=== PATIENT | female | born 1960 | race Caucasian/White ===

== ENCOUNTER 2020-04-18 14:57 | Inpatient (IN) ==
[2020-04-19] MEDS ORDERED: GLUCAGON 1 MG VIAL IM PRN ×2 (09:42)
[2020-04-19] MEDS ORDERED: DEXTROSE 50% 25 GM/50 ML VIAL IV PRN ×2 (09:42)
[2020-04-19] MEDS ORDERED: NICOTINE 7 MG/24 HR PATCH TRANSDERM PRN (09:47)
[2020-04-19] MEDS: methylPREDNISolone SOD SUC 40 MG/1 ML VIAL IV SCH (12:35)
[2020-04-19] MEDS: HYDROmorphone 2 MG/1 ML VIAL IV PRN ×2 (14:04→20:13)
[2020-04-19] MEDS: metroNIDAZOLE 500 MG TABLET PO SCH ×2 (14:05→20:14)
[2020-04-19 16:22] LABS: ABG HCO3 28.7 MMOL/L (20-26); ABG Oxygen Saturation 88.2 % (95-100); ABG PCO2 51.4 MM HG (35-48); ABG PH 7.393 (7.35-7.45); ABG PO2 60.5 MM HG (80-95); ABG TCO2 27.4 MMOL/L (23-27); Allen Test Positive; Pt O2 Delivery Device Room Air
[2020-04-19] MEDS: SODIUM CHLORIDE 0.9% 1,000 ML IV SCH (17:59)
[2020-04-19] MEDS: BUDESONIDE/FORMOTEROL 80-4.5 INHALER 6.9 GM INH SCH (20:14)
[2020-04-19] MEDS: POTASSIUM CHLORIDE 10 MEQ TABLET PO SCH (20:14)
[2020-04-20] MEDS: methylPREDNISolone SOD SUC 40 MG/1 ML VIAL IV SCH ×2 (00:26→13:10)
[2020-04-20] MEDS: HYDROmorphone 2 MG/1 ML VIAL IV PRN ×5 (04:07→20:04)
[2020-04-20 05:30] LABS: Hematocrit 38.9 VOL% (35.7-47.0); Hemoglobin 13.2 GM/DL (12.0-16.0); Immature Granulocytes % 0.5 %; Immature Granulocytes Absolute 0.04 #; Lymphocytes # 0.4 10*3/uL (1.4-4.0); Lymphocytes % 5.6 % (21.3-54.2); Mean Corpuscular HGB Conc 33.9 GM/DL (32-36); Mean Platelet Volume 9.9 FL (9.6-12.0); Monocytes % 1.4 % (1.7-12.7); Neutrophils % 92.5 % (38.7-73.9); Platelet Count 127 T/CUMM (130-400); Red Blood Count 4.32 MC/CUMM (3.8-5.5); White Blood Count 7.8 T/CUMM (4-12)
[2020-04-20] MEDS: LEVOTHYROXINE 25 MCG TABLET PO SCH (05:56)
[2020-04-20 05:59] LABS: Albumin 3.1 G/DL (3.4-5.0); Bilirubin,Total 0.7 MG/DL (0.2-1.0); Calcium 8.7 MG/DL (8.5-10.1); Osmolality,Calculated 273.1 MOS/KG (273-304); Total Protein 6.8 G/DL (6.4-8.3)
[2020-04-20 08:21] LABS: Lymphocytes 3 % (20-55); Metamyelocytes 1 %; Segmented Neutrophils 96 % (50-85); Total Cells Counted 100
[2020-04-20 08:22] LABS: Platelet Estimate Adequate; Polychromasia Slight
[2020-04-20 08:23] LABS: Anisocytosis 1+; Hypochromasia 1+; Ovalocytes Slight
[2020-04-20] MEDS ORDERED: CLORAZEPATE 3.75 MG TABLET PO PRN (09:13)
[2020-04-20] MEDS ORDERED: ZALEPLON 5 MG CAPSULE PO PRN (09:14)
[2020-04-20] MEDS ORDERED: NITROGLYCERIN SL 0.4 MG TABLET SL PRN (09:14)
[2020-04-20] MEDS: LEVOFLOXACIN 500 MG TABLET PO SCH (09:31)
[2020-04-20] MEDS: metroNIDAZOLE 500 MG TABLET PO SCH ×3 (09:31→20:03)
[2020-04-20] MEDS: amLODIPine 5 MG TABLET PO SCH (09:32)
[2020-04-20] MEDS: LISINOPRIL/HCTZ 20-25 MG TABLET PO SCH (09:32)
[2020-04-20] MEDS: POTASSIUM CHLORIDE 10 MEQ TABLET PO SCH ×2 (09:32→20:03)
[2020-04-20] MEDS: MONTELUKAST 10 MG TABLET PO SCH (09:32)
[2020-04-20] MEDS: BUDESONIDE/FORMOTEROL 80-4.5 INHALER 6.9 GM INH SCH ×2 (09:35→20:03)
[2020-04-20] MEDS: CHLORHEXIDINE 0.12% ORAL RINSE 60 ML BOTTLE SWISH/SPIT SCH ×2 (09:36→20:03)
[2020-04-20] MEDS: SODIUM CHLORIDE 0.9% 1,000 ML IV SCH (10:38)
[2020-04-20] MEDS: CHLORHEXIDINE 4% SOLN 118 ML BOTTLE TOP SCH ×2 (15:22→20:03)
[2020-04-21] MEDS: methylPREDNISolone SOD SUC 40 MG/1 ML VIAL IV SCH ×3 (00:20→23:09)
[2020-04-21] MEDS: HYDROmorphone 2 MG/1 ML VIAL IV PRN ×5 (02:31→23:32)
[2020-04-21] MEDS ORDERED: PAPAVERINE 60 MG/2 ML VIAL ONE (04:21)
[2020-04-21] MEDS ORDERED: VANCOMYCIN 1,000 MG VIAL ONE (04:22)
[2020-04-21] MEDS ORDERED: VANCOMYCIN 500 MG VIAL ONE (04:22)
[2020-04-21] MEDS: LEVOTHYROXINE 25 MCG TABLET PO SCH (05:32)
[2020-04-21] MEDS ORDERED: SUFentanil 250 MCG/5 ML AMP ONE (05:55)
[2020-04-21] MEDS ORDERED: MIDAZOLAM 10 MG/2 ML VIAL ONE (05:55)
[2020-04-21] MEDS ORDERED: AMINOCAPROIC ACID 5,000 MG/20 ML VIAL ONE (06:08)
[2020-04-21] MEDS ORDERED: CEFUROXIME INJ 1,500 MG in SODIUM CHLORIDE 0.9% 100 ML IV ONE (06:30)
[2020-04-21 07:50] LABS: ABG HCO3 29.9 MMOL/L (20-26); ABG Oxygen Saturation 99.9 % (95-100); ABG PCO2 64.4 MM HG (35-48); ABG PH 7.331 (7.35-7.45); ABG TCO2 30.6 MMOL/L (23-27); Glucose Heart Surgery 159 MG/DL (74-106); Hematocrit Heart Surgery 35.8 PERCENT (37-47); Hemoglobin Heart Surgery 11.6 G/DL (12.0-16.0); PCO2 Patient Temp Arterial 64.4 MMHG; PH Patient Temp Arterial 7.331; Patient Temperature 37 CELCIUS; Potassium Heart/CVR 3.5 MMOL/L (3.5-5.1); Sodium Heart/CVR 136 MMOL/L (135-145)
[2020-04-21 08:22] LABS: Apearance,Urine CLEAR (Clear); Bilirubin,Urine Negative (Negative); Blood, Urine Negative (Negative); Glucose,Urine (UA) Negative (Negative); Ketones,Urine Negative (Negative); Mucus,Urine Occasional /LPF (Occasional); Nitrite,Urine Negative (Negative); Protein,Urine Negative; RBC,Urine 3 /HPF (0-4); Squamous Epithelial Cell,Urine Occasional /HPF (0-10); Urine Color Yellow (Yellow); Urine Specific Gravity 1.015 (1.001-1.035); Urine Urobilinogen < 2.0 EU/DL (0.2-1.0); WBC,Urine 1 /HPF (0-6)
[2020-04-21] MEDS: POTASSIUM CHLORIDE 10 MEQ TABLET PO SCH (08:27)
[2020-04-21] MEDS: CHLORHEXIDINE 0.12% ORAL RINSE 60 ML BOTTLE SWISH/SPIT SCH ×2 (08:27→20:23)
[2020-04-21] MEDS: CHLORHEXIDINE 4% SOLN 118 ML BOTTLE TOP SCH (08:27)
[2020-04-21] MEDS: MONTELUKAST 10 MG TABLET PO SCH (08:27)
[2020-04-21] MEDS: metroNIDAZOLE 500 MG TABLET PO SCH (08:27)
[2020-04-21] MEDS: LEVOFLOXACIN 500 MG TABLET PO SCH (08:27)
[2020-04-21] MEDS: LISINOPRIL/HCTZ 20-25 MG TABLET PO SCH (08:27)
[2020-04-21] MEDS: amLODIPine 5 MG TABLET PO SCH (08:27)
[2020-04-21] MEDS: BUDESONIDE/FORMOTEROL 80-4.5 INHALER 6.9 GM INH SCH (08:28)
[2020-04-21] MEDS ORDERED: POTASSIUM CHLORIDE RIDER 100 ML IV ONE (08:35)
[2020-04-21] MEDS ORDERED: PHENYLEPHRINE DRIP 40 MG/250 ML PREMIX IV ONE (08:35)
[2020-04-21] MEDS ORDERED: PHENYLEPHRINE 1 MG/10 ML SYRINGE IV ONE (08:59)
[2020-04-21] MEDS ORDERED: PHENYLEPHRINE 10 MG/1 ML VIAL IV ONE (08:59)
[2020-04-21] MEDS ORDERED: HEPARIN/NACL 0.9% 2 UNITS/ML 500 ML IV ONE (08:59)
[2020-04-21] MEDS ORDERED: NITROGLYCERIN DRIP 50 MG/250 ML BOTTLE IV ONE (08:59)
[2020-04-21 09:05] LABS: Hematocrit Heart Surgery 31.9 PERCENT (37-47); Hemoglobin Heart Surgery 10.3 G/DL (12.0-16.0); PCO2 Patient Temp Venous 40.3 MM HG; PH Patient Temp Venous 7.431; PO2 Patient Temp Venous 44.3 MM HG; Potassium Heart/CVR 4.9 MMOL/L (3.5-5.1); VBG Base Excess 2.5 MEQ/L (0-4); VBG HCO3 26.4 MEQ/L (24-28); VBG Oxygen Saturation 88.9 %; VBG PCO2 46.6 MMHG (41-51); VBG PH 7.387; VBG PO2 54.3 MMHG (17-40)
[2020-04-21 09:37] LABS: Hemoglobin Heart Surgery 10.9 G/DL (12.0-16.0); PCO2 Patient Temp Venous 23.3 MM HG; PH Patient Temp Venous 7.595; Potassium Heart/CVR 4.6 MMOL/L (3.5-5.1); VBG Base Excess 1.2 MEQ/L (0-4); VBG HCO3 22.4 MEQ/L (24-28); VBG Oxygen Saturation 82.6 %; VBG PCO2 25.4 MMHG (41-51); VBG PH 7.563; VBG PO2 40.3 MMHG (17-40)
[2020-04-21 10:05] LABS: ABG Base Excess -0.2 MMOL/L (-2.5-2.5); ABG HCO3 24.3 MMOL/L (20-26); ABG PCO2 36.3 MM HG (35-48); ABG PH 7.427 (7.35-7.45); ABG TCO2 21.9 MMOL/L (23-27); Ionized Calcium Arterial 1.24 MMOL/L (1.21-1.46); Potassium Heart/CVR 3.6 MMOL/L (3.5-5.1); Sodium Heart/CVR 127 MMOL/L (135-145)
[2020-04-21 10:06] LABS: Glucose Heart Surgery 312 MG/DL (74-106); Hematocrit Heart Surgery 29.1 PERCENT (37-47); Hemoglobin Heart Surgery 9.4 G/DL (12.0-16.0); PCO2 Patient Temp Arterial 36.3 MMHG; PH Patient Temp Arterial 7.427; Patient Temperature 37 CELCIUS
[2020-04-21] MEDS ORDERED: MANNITOL 100 GM/500 ML BAG IV ONE (10:08)
[2020-04-21] MEDS ORDERED: LIDOCAINE 2% 5 ML VIAL ONE ×2 (10:08→11:52)
[2020-04-21] MEDS ORDERED: DEXTROSE 5% KCL 20 MEQ 20 MEQ/1,000 ML BAG IV ONE (10:09)
[2020-04-21] MEDS ORDERED: HEPARIN 10,000 UNIT/10 ML VIAL ONE (10:09)
[2020-04-21] MEDS ORDERED: ALBUMIN 25% 25 GM/100 ML VIAL IV ONE (10:09)
[2020-04-21] MEDS ORDERED: MAGNESIUM SULFATE 5 GM/10 ML VIAL IV ONE (10:09)
[2020-04-21] MEDS ORDERED: methylPREDNISolone SOD SUC 1,000 MG/8 ML VIAL ONE (10:09)
[2020-04-21] MEDS ORDERED: FUROSEMIDE 20 MG/2 ML VIAL ONE (10:09)
[2020-04-21] MEDS ORDERED: SODIUM BICARBONATE 50 MEQ/50 ML VIAL IV ONE (10:09)
[2020-04-21] MEDS ORDERED: ALBUMIN 5% 12.5 GM/250 ML VIAL IV ONE (10:09)
[2020-04-21] MEDS ORDERED: PROTAMINE SULFATE 50 MG/5 ML VIAL IV ONE ×3 (10:10→11:26)
[2020-04-21] MEDS ORDERED: MAGNESIUM SULF RIDER 2 GM in PREMIX 1 EACH IV PRN (10:35)
[2020-04-21] MEDS ORDERED: ACETAMINOPHEN 650 MG SUPP RECTAL PRN (10:35)
[2020-04-21] MEDS ORDERED: SODIUM CHLORIDE 0.45% 1,000 ML IV SCH ×2 (10:35)
[2020-04-21] MEDS ORDERED: INSULIN REGULAR 100 UNIT/ML IV PRN (10:35)
[2020-04-21] MEDS ORDERED: ONDANSETRON 4 MG/2 ML VIAL IV PRN (10:35)
[2020-04-21] MEDS ORDERED: POTASSIUM CHLORIDE RIDER 10 MEQ in PREMIX 1 EACH IV PRN (10:35)
[2020-04-21] MEDS ORDERED: MAGNESIUM SULF RIDER 4 GM in PREMIX 1 EACH IV PRN (10:35)
[2020-04-21] MEDS ORDERED: DEXTROSE 10% 250 ML BAG IV PRN ×2 (10:35)
[2020-04-21] MEDS ORDERED: NITROPRUSSIDE 100 MG in DEXTROSE 5% 250 ML IV PRN (10:35)
[2020-04-21] MEDS ORDERED: LACTATED RINGERS 250 ML IV PRN (10:35)
[2020-04-21] MEDS ORDERED: VECURONIUM 10 MG VIAL IV PRN ×2 (10:35)
[2020-04-21] MEDS ORDERED: INSULIN REGULAR DRIP 100 ML IV SCH (10:35)
[2020-04-21] MEDS ORDERED: MIDAZOLAM 2 MG/2 ML VIAL IV PRN (10:35)
[2020-04-21] MEDS ORDERED: PHENYLEPHRINE DRIP 40 MG/250 ML PREMIX IV PRN (10:35)
[2020-04-21] MEDS ORDERED: INSULIN REGULAR 100 UNIT/ML IV ONE (10:35)
[2020-04-21] MEDS ORDERED: CALCIUM CHLORIDE 1,000 MG/10 ML SYRINGE IV PRN (10:35)
[2020-04-21] MEDS ORDERED: CHLORHEXIDINE 4% SOLN 118 ML BOTTLE TOP PRN (10:35)
[2020-04-21] MEDS ORDERED: MORPHINE 10 MG/1 ML VIAL IV PRN (10:35)
[2020-04-21] MEDS ORDERED: MORPHINE 4 MG/1 ML VIAL IV PRN (10:35)
[2020-04-21] MEDS ORDERED: ALBUTEROL/IPRATROPIUM 3 ML NEB RESP TX PRN (11:16)
[2020-04-21 11:25] LABS: ABG Base Excess -0.4 MMOL/L (-2.5-2.5); ABG HCO3 24.1 MMOL/L (20-26); ABG PCO2 40.5 MM HG (35-48); ABG TCO2 21.9 MMOL/L (23-27); Glucose Heart Surgery 313 MG/DL (74-106); Hematocrit Heart Surgery 35.3 PERCENT (37-47); Hemoglobin Heart Surgery 11.5 G/DL (12.0-16.0); Potassium Heart/CVR 3.5 MMOL/L (3.5-5.1)
[2020-04-21] MEDS: ALBUMIN 5% 12.5 GM in PREMIX 1 EACH IV PRN ×3 (11:27→15:46)
[2020-04-21 11:29] LABS: Hematocrit 34.3 VOL% (35.7-47.0); Hemoglobin 11.3 GM/DL (12.0-16.0); Immature Granulocytes % 0.9 %; Immature Granulocytes Absolute 0.07 #; Lymphocytes # 0.4 10*3/uL (1.4-4.0); Lymphocytes % 5.3 % (21.3-54.2); Mean Corpuscular HGB Conc 32.9 GM/DL (32-36); Mean Platelet Volume 9.9 FL (9.6-12.0); Monocytes % 8.9 % (1.7-12.7); NRBC # 0.03 10*3/uL; Neutrophils % 84.9 % (38.7-73.9); Platelet Count 100 T/CUMM (130-400); Red Blood Count 3.73 MC/CUMM (3.8-5.5); Red Cell Distribution Width 14.3 % (9.3-17.3); White Blood Count 7.9 T/CUMM (4-12)
[2020-04-21] MEDS: POTASSIUM CHLORIDE RIDER 20 MEQ in PREMIX 1 EACH IV PRN ×3 (11:29→19:32)
[2020-04-21 11:48] LABS: INR 1.4; PT Patient Result 15.1 SECS (9.8-11.9); Partial Thromboplastin Time 55.9 SECS (23.9-33.8)
[2020-04-21] MEDS ORDERED: SEVOFLURANE 1 UNIT/15 MINUTE INH ONE (11:52)
[2020-04-21] MEDS ORDERED: SODIUM CHLORIDE 0.9% 100 ML IV ONE (11:52)
[2020-04-21] MEDS ORDERED: LACTATED RINGERS 1,000 ML IV ONE (11:52)
[2020-04-21] MEDS ORDERED: VECURONIUM 10 MG VIAL IV ONE (11:52)
[2020-04-21] MEDS ORDERED: ETOMIDATE 40 MG/20 ML VIAL IV ONE (11:52)
[2020-04-21] MEDS ORDERED: SODIUM CHLORIDE 0.9% 250 ML IV ONE (11:52)
[2020-04-21] MEDS ORDERED: SODIUM CHLORIDE 0.9% 1,000 ML IV ONE (11:52)
[2020-04-21] MEDS ORDERED: CALCIUM CHLORIDE 1,000 MG/10 ML VIAL IV ONE (11:52)
[2020-04-21 11:53] LABS: CKMB % 12.3 %
[2020-04-21 11:56] LABS: Troponin I 6.32 NG/ML (0.00-0.045)
[2020-04-21 11:58] LABS: Albumin 2.2 G/DL (3.4-5.0); Bilirubin,Total 0.9 MG/DL (0.2-1.0); Calcium 7.5 MG/DL (8.5-10.1); Osmolality,Calculated 281.1 MOS/KG (273-304); Total Protein 3.9 G/DL (6.4-8.3)
[2020-04-21 12:51] LABS: ABG Base Excess -1.6 MMOL/L (-2.5-2.5); ABG HCO3 23.6 MMOL/L (20-26); ABG Oxygen Saturation 98.5 % (95-100); ABG PCO2 41.6 MM HG (35-48); ABG PH 7.371 (7.35-7.45); ABG PO2 215.7 MM HG (80-95); ABG TCO2 24.8 MMOL/L (23-27); Glucose Heart Surgery 248 MG/DL (74-106); Hemoglobin Heart Surgery 10.5 G/DL (12.0-16.0); Potassium Heart/CVR 3.7 MMOL/L (3.5-5.1)
[2020-04-21] MEDS ORDERED: LACTATED RINGERS 1,000 ML IV PRN (13:32)
[2020-04-21] MEDS: ALBUTEROL/IPRATROPIUM 3 ML NEB RESP TX SCH ×2 (14:28→19:44)
[2020-04-21 15:19] LABS: ABG Base Excess 0.4 MMOL/L (-2.5-2.5); ABG HCO3 24.8 MMOL/L (20-26); ABG Oxygen Saturation 99.1 % (95-100); ABG PCO2 47.9 MM HG (35-48); ABG PH 7.348 (7.35-7.45); ABG TCO2 24.4 MMOL/L (23-27); Glucose Heart Surgery 233 MG/DL (74-106); Hematocrit Heart Surgery 28.4 PERCENT (37-47); Hemoglobin Heart Surgery 9.1 G/DL (12.0-16.0); Potassium Heart/CVR 4.1 MMOL/L (3.5-5.1)
[2020-04-21] MEDS ORDERED: HALOPERIDOL 5 MG/ML AMP IV PRN (17:17)
[2020-04-21] MEDS: MIDAZOLAM 10 MG/2 ML VIAL IV PRN (17:18)
[2020-04-21] MEDS: CEFUROXIME INJ 1,500 MG in SYRINGE 1 EACH IV SCH (18:19)
[2020-04-21 18:20] LABS: ABG HCO3 25.3 MMOL/L (20-26); ABG PCO2 50.5 MM HG (35-48); ABG PH 7.341 (7.35-7.45); ABG TCO2 25.2 MMOL/L (23-27); Glucose Heart Surgery 178 MG/DL (74-106); Hematocrit Heart Surgery 29.5 PERCENT (37-47); Hemoglobin Heart Surgery 9.5 G/DL (12.0-16.0); Potassium Heart/CVR 3.7 MMOL/L (3.5-5.1)
[2020-04-21 19:14] LABS: ABG Base Excess 1.6 MMOL/L (-2.5-2.5); ABG HCO3 25.9 MMOL/L (20-26); ABG Oxygen Saturation 98.9 % (95-100); ABG PH 7.353 (7.35-7.45); ABG TCO2 25.4 MMOL/L (23-27); Glucose Heart Surgery 164 MG/DL (74-106); Hematocrit Heart Surgery 30.6 PERCENT (37-47); Hemoglobin Heart Surgery 9.9 G/DL (12.0-16.0); Potassium Heart/CVR 3.7 MMOL/L (3.5-5.1)
[2020-04-21] MEDS ORDERED: KETOROLAC 30 MG/1 ML VIAL IV SCH (21:00)
[2020-04-21 21:04] LABS: CKMB % 12.5 %
[2020-04-21 21:06] LABS: Troponin I 3.24 NG/ML (0.00-0.045)
[2020-04-21 21:17] LABS: ABG Base Excess 1.6 MMOL/L (-2.5-2.5); ABG HCO3 25.9 MMOL/L (20-26); ABG Oxygen Saturation 99.1 % (95-100); ABG PCO2 45.4 MM HG (35-48); ABG PH 7.383 (7.35-7.45); ABG TCO2 24.7 MMOL/L (23-27); Glucose Heart Surgery 148 MG/DL (74-106); Hematocrit Heart Surgery 30.4 PERCENT (37-47); Hemoglobin Heart Surgery 9.8 G/DL (12.0-16.0); Potassium Heart/CVR 4.2 MMOL/L (3.5-5.1)
[2020-04-21 23:11] LABS: ABG Base Excess 1.5 MMOL/L (-2.5-2.5); ABG HCO3 25.8 MMOL/L (20-26); ABG PCO2 49.2 MM HG (35-48); ABG PH 7.356 (7.35-7.45); ABG TCO2 25.3 MMOL/L (23-27); Glucose Heart Surgery 136 MG/DL (74-106); Hematocrit Heart Surgery 28.9 PERCENT (37-47); Hemoglobin Heart Surgery 9.3 G/DL (12.0-16.0)
[2020-04-22 00:58] LABS: ABG Base Excess 0.4 MMOL/L (-2.5-2.5); ABG HCO3 24.8 MMOL/L (20-26); ABG Oxygen Saturation 98.9 % (95-100); ABG PCO2 51.8 MM HG (35-48); ABG PH 7.328 (7.35-7.45); ABG TCO2 24.5 MMOL/L (23-27); Glucose Heart Surgery 154 MG/DL (74-106); Hematocrit Heart Surgery 35.1 PERCENT (37-47); Hemoglobin Heart Surgery 11.4 G/DL (12.0-16.0); Potassium Heart/CVR 4.1 MMOL/L (3.5-5.1)
[2020-04-22] MEDS ORDERED: FUROSEMIDE 40 MG/4 ML VIAL IV ONE (00:59)
[2020-04-22] MEDS: ALBUMIN 5% 12.5 GM in PREMIX 1 EACH IV PRN ×2 (01:05→01:18)
[2020-04-22] MEDS: MIDAZOLAM 10 MG/2 ML VIAL IV PRN (02:18)
[2020-04-22] MEDS: KETOROLAC 30 MG/1 ML VIAL IV SCH ×4 (03:24→20:50)
[2020-04-22 03:37] LABS: ABG Base Excess 2.5 MMOL/L (-2.5-2.5); ABG HCO3 27.4 MMOL/L (20-26); ABG Oxygen Saturation 98.1 % (95-100); ABG PCO2 43.5 MM HG (35-48); ABG PH 7.417 (7.35-7.45); ABG TCO2 28.7 MMOL/L (23-27); Glucose Heart Surgery 149 MG/DL (74-106); Potassium Heart/CVR 3.4 MMOL/L (3.5-5.1)
[2020-04-22] MEDS: POTASSIUM CHLORIDE RIDER 20 MEQ in PREMIX 1 EACH IV PRN ×2 (04:05→04:36)
[2020-04-22] MEDS: HYDROmorphone 2 MG/1 ML VIAL IV PRN ×6 (04:07→22:22)
[2020-04-22 04:32] LABS: Basophils % 0.1 % (0.0-0.8); Hematocrit 30.9 VOL% (35.7-47.0); Hemoglobin 10.3 GM/DL (12.0-16.0); Immature Granulocytes % 0.3 %; Immature Granulocytes Absolute 0.04 #; Lymphocytes # 0.3 10*3/uL (1.4-4.0); Lymphocytes % 2.2 % (21.3-54.2); Mean Corpuscular HGB Conc 33.3 GM/DL (32-36); Mean Corpuscular Volume 93.4 FL (87-102); Mean Platelet Volume 11.3 FL (9.6-12.0); Monocytes % 4.6 % (1.7-12.7); Neutrophils % 92.8 % (38.7-73.9); Platelet Count 69 T/CUMM (130-400); Red Blood Count 3.31 MC/CUMM (3.8-5.5); Red Cell Distribution Width 14.5 % (9.3-17.3)
[2020-04-22 04:59] LABS: Lymphocytes 3 % (20-55); Platelet Estimate Decreased; Segmented Neutrophils 93 % (50-85); Total Cells Counted 100
[2020-04-22 05:21] LABS: CKMB % 7.5 %
[2020-04-22 05:22] LABS: Troponin I 2.81 NG/ML (0.00-0.045)
[2020-04-22 05:31] LABS: ABG Base Excess 2.3 MMOL/L (-2.5-2.5); ABG HCO3 26.5 MMOL/L (20-26); ABG PCO2 49.7 MM HG (35-48); ABG PH 7.364 (7.35-7.45); ABG TCO2 25.8 MMOL/L (23-27); Glucose Heart Surgery 155 MG/DL (74-106); Hematocrit Heart Surgery 31.5 PERCENT (37-47); Hemoglobin Heart Surgery 10.2 G/DL (12.0-16.0); Potassium Heart/CVR 4.7 MMOL/L (3.5-5.1)
[2020-04-22 06:01] LABS: Albumin 4.1 G/DL (3.4-5.0); Bilirubin,Direct 0.31 MG/DL (0.0-0.20); Bilirubin,Total 2.2 MG/DL (0.2-1.0); Calcium 8.1 MG/DL (8.5-10.1); Osmolality,Calculated 284.3 MOS/KG (273-304); Total Protein 5.4 G/DL (6.4-8.3)
[2020-04-22] MEDS: CEFUROXIME INJ 1,500 MG in SYRINGE 1 EACH IV SCH ×2 (06:15→17:36)
[2020-04-22 07:16] LABS: ABG Base Excess 2.8 MMOL/L (-2.5-2.5); ABG HCO3 26.9 MMOL/L (20-26); ABG Oxygen Saturation 98.3 % (95-100); ABG PCO2 51.2 MM HG (35-48); ABG PH 7.362 (7.35-7.45); ABG TCO2 26.5 MMOL/L (23-27); Glucose Heart Surgery 162 MG/DL (74-106); Hematocrit Heart Surgery 30.8 PERCENT (37-47); Hemoglobin Heart Surgery 9.9 G/DL (12.0-16.0); Potassium Heart/CVR 4.3 MMOL/L (3.5-5.1)
[2020-04-22] MEDS: ALBUTEROL/IPRATROPIUM 3 ML NEB RESP TX SCH ×4 (07:40→22:00)
[2020-04-22] MEDS ORDERED: LIDOCAINE 1% 20 ML VIAL MISC INJ ONE (08:30)
[2020-04-22] MEDS: CHLORHEXIDINE 0.12% ORAL RINSE 60 ML BOTTLE SWISH/SPIT SCH ×2 (08:51→22:43)
[2020-04-22] MEDS: INSULIN LISPRO 100 UNIT/ML SUBCUT SCH ×3 (12:08→22:44)
[2020-04-22] MEDS: methylPREDNISolone SOD SUC 40 MG/1 ML VIAL IV SCH ×2 (12:08→22:30)
[2020-04-22] MEDS ORDERED: MAGNESIUM SULF RIDER 4 GM in PREMIX 1 EACH IV PRN (12:11)
[2020-04-22] MEDS ORDERED: GLUCAGON 1 MG VIAL IM PRN ×2 (12:11)
[2020-04-22] MEDS ORDERED: ALUMINUM/MAGNES/SIMETH MAX STR 30 ML UDCUP PO PRN (12:11)
[2020-04-22] MEDS ORDERED: ZALEPLON 5 MG CAPSULE PO PRN (12:11)
[2020-04-22] MEDS ORDERED: ONDANSETRON 4 MG/2 ML VIAL IV PRN (12:11)
[2020-04-22] MEDS ORDERED: ACETAMINOPHEN 325 MG TABLET PO PRN (12:11)
[2020-04-22] MEDS ORDERED: MAGNESIUM HYDROXIDE SUSP 30 ML UDCUP PO PRN (12:11)
[2020-04-22] MEDS ORDERED: SODIUM CHLOR 0.45% KCL 20 MEQ 20 MEQ/1,000 ML BAG IV SCH (12:11)
[2020-04-22] MEDS ORDERED: DEXTROSE 50% 25 GM/50 ML VIAL IV PRN ×2 (12:11)
[2020-04-22] MEDS: ASPIRIN EC 81 MG TABLET PO SCH (12:52)
[2020-04-22] MEDS: PANTOPRAZOLE 40 MG TABLET PO SCH (12:53)
[2020-04-22 13:43] LABS: CKMB % 4.4 %
[2020-04-22 13:47] LABS: Troponin I 3.01 NG/ML (0.00-0.045)
[2020-04-22] MEDS ORDERED: SODIUM CHLORIDE 0.9% 100 ML IV ONE (17:20)
[2020-04-22] MEDS: ATORVASTATIN 40 MG TABLET PO SCH (21:03)
[2020-04-23] MEDS: oxyCODONE/ACETAMINOPHEN 5-325 MG TABLET PO PRN ×4 (00:55→23:21)
[2020-04-23] MEDS: INSULIN LISPRO 100 UNIT/ML SUBCUT SCH ×6 (03:06→21:09)
[2020-04-23] MEDS: KETOROLAC 30 MG/1 ML VIAL IV SCH (03:14)
[2020-04-23 04:12] LABS: Basophils % 0.1 % (0.0-0.8); Hematocrit 19.7 VOL% (35.7-47.0); Immature Granulocytes % 0.5 %; Immature Granulocytes Absolute 0.08 #; Lymphocytes # 0.4 10*3/uL (1.4-4.0); Lymphocytes % 2.7 % (21.3-54.2); Mean Corpuscular HGB Conc 32.5 GM/DL (32-36); Mean Platelet Volume 10.5 FL (9.6-12.0); Monocytes % 4.6 % (1.7-12.7); Neutrophils % 92.1 % (38.7-73.9); Platelet Count 68 T/CUMM (130-400); Red Blood Count 2.03 MC/CUMM (3.8-5.5); Red Cell Distribution Width 14.9 % (9.3-17.3)
[2020-04-23 04:18] LABS: Hemoglobin 6.4 GM/DL (12.0-16.0)
[2020-04-23] MEDS ORDERED: SODIUM CHLORIDE 0.9% 1,000 ML IV PRN (04:27)
[2020-04-23 04:39] LABS: Hypochromasia 1+; Lymphocytes 1 % (20-55); Platelet Estimate Decreased; Segmented Neutrophils 95 % (50-85); Total Cells Counted 100
[2020-04-23 04:44] LABS: Alanine Aminotransferase 45 U/L (13-56); Albumin 2.8 G/DL (3.4-5.0); Alkaline Phosphatase 30 U/L (45-117); Aspartate Amino Transferase 33 U/L (0-37); Bilirubin,Direct 0.38 MG/DL (0.0-0.20); Bilirubin,Indirect 0.6 MG/DL (0.0-1.0); Bilirubin,Total 1.3 MG/DL (0.2-1.0); Osmolality,Calculated 282.5 MOS/KG (273-304); Total Protein 4.6 G/DL (6.4-8.3)
[2020-04-23] MEDS: ALBUTEROL/IPRATROPIUM 3 ML NEB RESP TX SCH ×4 (04:51→19:12)
[2020-04-23] MEDS ORDERED: FUROSEMIDE 40 MG/4 ML VIAL IV ONE (06:00)
[2020-04-23] MEDS: PANTOPRAZOLE 40 MG TABLET PO SCH (09:10)
[2020-04-23] MEDS: POTASSIUM CHLORIDE 20 MEQ TABLET PO PRN ×2 (09:10→13:13)
[2020-04-23] MEDS: MAGNESIUM SULF RIDER 2 GM in PREMIX 1 EACH IV PRN (09:10)
[2020-04-23] MEDS: FERROUS SULFATE 325 MG TABLET PO SCH (09:10)
[2020-04-23] MEDS: HYDROmorphone 2 MG/1 ML VIAL IV PRN ×4 (09:10→21:06)
[2020-04-23] MEDS: ASPIRIN EC 81 MG TABLET PO SCH (09:10)
[2020-04-23] MEDS: DOCUSATE SODIUM 100 MG CAPSULE PO SCH (09:10)
[2020-04-23] MEDS: CHLORHEXIDINE 0.12% ORAL RINSE 60 ML BOTTLE SWISH/SPIT SCH ×2 (09:12→21:05)
[2020-04-23] MEDS: methylPREDNISolone SOD SUC 40 MG/1 ML VIAL IV SCH ×2 (11:37→21:48)
[2020-04-23 19:44] LABS: Hematocrit 27.8 VOL% (35.7-47.0); Hemoglobin 9.1 GM/DL (12.0-16.0)
[2020-04-23] MEDS: ATORVASTATIN 40 MG TABLET PO SCH (21:05)
[2020-04-24] MEDS: INSULIN LISPRO 100 UNIT/ML SUBCUT SCH ×6 (00:10→20:26)
[2020-04-24] MEDS: ALBUTEROL/IPRATROPIUM 3 ML NEB RESP TX SCH ×4 (00:18→19:29)
[2020-04-24] MEDS: HYDROmorphone 2 MG/1 ML VIAL IV PRN ×2 (02:15→06:17)
[2020-04-24 05:38] LABS: Basophils % 0.1 % (0.0-0.8); Hemoglobin 8.8 GM/DL (12.0-16.0); Immature Granulocytes % 0.5 %; Immature Granulocytes Absolute 0.07 #; Lymphocytes # 0.3 10*3/uL (1.4-4.0); Lymphocytes % 2.2 % (21.3-54.2); Mean Corpuscular HGB Conc 33.8 GM/DL (32-36); Mean Corpuscular Volume 91.5 FL (87-102); Mean Platelet Volume 10.7 FL (9.6-12.0); Monocytes % 3.5 % (1.7-12.7); Neutrophils % 93.7 % (38.7-73.9); Red Blood Count 2.84 MC/CUMM (3.8-5.5); Red Cell Distribution Width 14.5 % (9.3-17.3); White Blood Count 12.8 T/CUMM (4-12)
[2020-04-24 05:48] LABS: Platelet Count 76 T/CUMM (130-400)
[2020-04-24 06:19] LABS: Band Neutrophils 2 % (0-10); Hypochromasia 1+; Lymphocytes 3 % (20-55); Microcytosis Slight; Platelet Estimate Decreased; Segmented Neutrophils 91 % (50-85); Total Cells Counted 100
[2020-04-24 06:27] LABS: Calcium 8.1 MG/DL (8.5-10.1)
[2020-04-24 06:28] LABS: Albumin 3.2 G/DL (3.4-5.0); Osmolality,Calculated 271.1 MOS/KG (273-304)
[2020-04-24 06:30] LABS: Bilirubin,Direct 0.29 MG/DL (0.0-0.20)
[2020-04-24 06:33] LABS: Bilirubin,Total 1.2 MG/DL (0.2-1.0); Total Protein 5.8 G/DL (6.4-8.3)
[2020-04-24 07:18] LABS: Alanine Aminotransferase 56 U/L (13-56); Albumin 3.1 G/DL (3.4-5.0); Alkaline Phosphatase 52 U/L (45-117); Aspartate Amino Transferase 43 U/L (0-37); Bilirubin,Indirect 0.9 MG/DL (0.0-1.0); Total Protein 5.8 G/DL (6.4-8.3)
[2020-04-24] MEDS: predniSONE 10 MG TABLET PO SCH ×2 (08:17→20:23)
[2020-04-24] MEDS: CHLORHEXIDINE 0.12% ORAL RINSE 60 ML BOTTLE SWISH/SPIT SCH ×2 (08:17→20:23)
[2020-04-24] MEDS: DOCUSATE SODIUM 100 MG CAPSULE PO SCH (08:17)
[2020-04-24] MEDS: POTASSIUM CHLORIDE 20 MEQ TABLET PO PRN ×2 (08:17→10:27)
[2020-04-24] MEDS: ASPIRIN EC 81 MG TABLET PO SCH (08:17)
[2020-04-24] MEDS: PANTOPRAZOLE 40 MG TABLET PO SCH (08:17)
[2020-04-24] MEDS: FERROUS SULFATE 325 MG TABLET PO SCH (08:17)
[2020-04-24] MEDS ORDERED: HYDROmorphone 2 MG/1 ML VIAL IV ONE (09:09)
[2020-04-24] MEDS: lisinopriL 5 MG TABLET PO SCH (10:26)
[2020-04-24] MEDS: carvediloL 3.125 MG TABLET PO SCH ×2 (10:26→20:22)
[2020-04-24] MEDS: LEVOTHYROXINE 25 MCG TABLET PO SCH (10:26)
[2020-04-24] MEDS: HYDROmorphone 2 MG TABLET PO PRN ×3 (13:24→23:41)
[2020-04-24] MEDS: oxyCODONE/ACETAMINOPHEN 5-325 MG TABLET PO PRN (20:21)
[2020-04-24] MEDS: BUDESONIDE/FORMOTEROL 80-4.5 INHALER 6.9 GM INH SCH (20:22)
[2020-04-24] MEDS: ATORVASTATIN 40 MG TABLET PO SCH (20:23)
[2020-04-25] MEDS: ALBUTEROL/IPRATROPIUM 3 ML NEB RESP TX SCH ×4 (00:28→19:18)
[2020-04-25] MEDS: oxyCODONE/ACETAMINOPHEN 5-325 MG TABLET PO PRN ×3 (02:43→18:10)
[2020-04-25] MEDS: LEVOTHYROXINE 25 MCG TABLET PO SCH (05:45)
[2020-04-25] MEDS: HYDROmorphone 2 MG TABLET PO PRN ×3 (05:45→21:40)
[2020-04-25 06:12] LABS: Basophils % 0.1 % (0.0-0.8); Hematocrit 20.3 VOL% (35.7-47.0); Hemoglobin 6.6 GM/DL (12.0-16.0); Immature Granulocytes % 0.5 %; Immature Granulocytes Absolute 0.05 #; Lymphocytes # 0.9 10*3/uL (1.4-4.0); Lymphocytes % 9.2 % (21.3-54.2); Mean Corpuscular HGB Conc 32.5 GM/DL (32-36); Mean Corpuscular Volume 92.3 FL (87-102); Mean Platelet Volume 10.1 FL (9.6-12.0); Monocytes % 7.5 % (1.7-12.7); Neutrophils % 82.7 % (38.7-73.9); Red Cell Distribution Width 14.2 % (9.3-17.3)
[2020-04-25 06:20] LABS: Platelet Count 130 T/CUMM (130-400)
[2020-04-25 06:28] LABS: Calcium 8.1 MG/DL (8.5-10.1); Osmolality,Calculated 268.2 MOS/KG (273-304)
[2020-04-25] MEDS ORDERED: NICOTINE 14 MG/24 HR PATCH TRANSDERM PRN (07:20)
[2020-04-25] MEDS ORDERED: FUROSEMIDE 40 MG/4 ML VIAL IV ONE (07:20)
[2020-04-25] MEDS ORDERED: SODIUM CHLORIDE 0.9% 1,000 ML IV PRN (07:22)
[2020-04-25 07:23] LABS: Anisocytosis Slight; Hypochromasia 1+; Platelet Estimate Adequate; Polychromasia Slight; Schistocytes Slight
[2020-04-25] MEDS: INSULIN LISPRO 100 UNIT/ML SUBCUT SCH ×4 (08:39→21:41)
[2020-04-25] MEDS: DOCUSATE SODIUM 100 MG CAPSULE PO SCH (09:41)
[2020-04-25] MEDS: lisinopriL 5 MG TABLET PO SCH (09:41)
[2020-04-25] MEDS: FERROUS SULFATE 325 MG TABLET PO SCH (09:41)
[2020-04-25] MEDS: carvediloL 3.125 MG TABLET PO SCH ×2 (09:41→21:40)
[2020-04-25] MEDS: MONTELUKAST 10 MG TABLET PO SCH (09:41)
[2020-04-25] MEDS: PANTOPRAZOLE 40 MG TABLET PO SCH (09:41)
[2020-04-25] MEDS: CHLORHEXIDINE 0.12% ORAL RINSE 60 ML BOTTLE SWISH/SPIT SCH ×2 (09:42→21:42)
[2020-04-25] MEDS: predniSONE 10 MG TABLET PO SCH ×2 (09:42→21:39)
[2020-04-25] MEDS: ASPIRIN EC 81 MG TABLET PO SCH (09:42)
[2020-04-25] MEDS: POLYETHYLENE GLYCOL POWDER 17 GM PACK PO SCH (09:42)
[2020-04-25] MEDS: POTASSIUM CHLORIDE 20 MEQ TABLET PO PRN (09:44)
[2020-04-25] MEDS: MAGNESIUM SULF RIDER 2 GM in PREMIX 1 EACH IV PRN (09:47)
[2020-04-25] MEDS: BUDESONIDE/FORMOTEROL 80-4.5 INHALER 6.9 GM INH SCH ×2 (09:53→21:42)
[2020-04-25] MEDS: ATORVASTATIN 40 MG TABLET PO SCH (21:39)
[2020-04-26] MEDS: ALBUTEROL/IPRATROPIUM 3 ML NEB RESP TX SCH ×4 (00:35→20:05)
[2020-04-26] MEDS: oxyCODONE/ACETAMINOPHEN 5-325 MG TABLET PO PRN ×3 (01:31→14:30)
[2020-04-26] MEDS: LEVOTHYROXINE 25 MCG TABLET PO SCH (06:33)
[2020-04-26 06:37] LABS: Basophils % 0.1 % (0.0-0.8); Hematocrit 30.7 VOL% (35.7-47.0); Hemoglobin 10.4 GM/DL (12.0-16.0); Immature Granulocytes % 0.3 %; Immature Granulocytes Absolute 0.03 #; Lymphocytes # 0.7 10*3/uL (1.4-4.0); Lymphocytes % 7.4 % (21.3-54.2); Mean Corpuscular HGB Conc 33.9 GM/DL (32-36); Mean Corpuscular Volume 91.1 FL (87-102); Mean Platelet Volume 10.5 FL (9.6-12.0); Monocytes % 7.4 % (1.7-12.7); Neutrophils % 84.8 % (38.7-73.9); Platelet Count 143 T/CUMM (130-400); Red Blood Count 3.37 MC/CUMM (3.8-5.5); Red Cell Distribution Width 14.3 % (9.3-17.3)
[2020-04-26 07:15] LABS: Alanine Aminotransferase 103 U/L (13-56); Albumin 3.2 G/DL (3.4-5.0); Alkaline Phosphatase 51 U/L (45-117); Aspartate Amino Transferase 61 U/L (0-37); Bilirubin,Indirect 2.6 MG/DL (0.0-1.0); Blood Urea Nitrogen 14 MG/DL (7-18); Calcium 8.5 MG/DL (8.5-10.1); Estimated Glom Filtration Rate 79 ML/MIN; Glucose 106 MG/DL (74-106); Osmolality,Calculated 266.4 MOS/KG (273-304); Total Protein 5.8 G/DL (6.4-8.3); Troponin I 0.699 NG/ML (0.00-0.045)
[2020-04-26] MEDS: MONTELUKAST 10 MG TABLET PO SCH (09:49)
[2020-04-26] MEDS: POTASSIUM CHLORIDE 20 MEQ TABLET PO PRN (09:49)
[2020-04-26] MEDS: ASPIRIN EC 81 MG TABLET PO SCH (09:49)
[2020-04-26] MEDS: carvediloL 3.125 MG TABLET PO SCH ×2 (09:49→20:16)
[2020-04-26] MEDS: DOCUSATE SODIUM 100 MG CAPSULE PO SCH (09:49)
[2020-04-26] MEDS: FERROUS SULFATE 325 MG TABLET PO SCH (09:49)
[2020-04-26] MEDS: predniSONE 10 MG TABLET PO SCH ×2 (09:49→20:16)
[2020-04-26] MEDS: CHLORHEXIDINE 0.12% ORAL RINSE 60 ML BOTTLE SWISH/SPIT SCH ×2 (09:50→20:17)
[2020-04-26] MEDS: BUDESONIDE/FORMOTEROL 80-4.5 INHALER 6.9 GM INH SCH ×2 (09:50→20:18)
[2020-04-26] MEDS: lisinopriL 5 MG TABLET PO SCH (09:50)
[2020-04-26] MEDS: PANTOPRAZOLE 40 MG TABLET PO SCH (09:50)
[2020-04-26] MEDS: POLYETHYLENE GLYCOL POWDER 17 GM PACK PO SCH (09:50)
[2020-04-26] MEDS: INSULIN LISPRO 100 UNIT/ML SUBCUT SCH ×4 (09:51→20:19)
[2020-04-26] MEDS: HYDROmorphone 2 MG TABLET PO PRN (10:03)
[2020-04-26] MEDS: GABAPENTIN 300 MG CAPSULE PO SCH ×2 (14:30→20:16)
[2020-04-26] MEDS ORDERED: LACTULOSE 20 GM/30 ML UDCUP PO PRN (15:31)
[2020-04-26] MEDS: ATORVASTATIN 40 MG TABLET PO SCH (20:16)
[2020-04-27] MEDS: oxyCODONE/ACETAMINOPHEN 5-325 MG TABLET PO PRN ×4 (00:03→22:59)
[2020-04-27] MEDS: ALBUTEROL/IPRATROPIUM 3 ML NEB RESP TX SCH ×4 (01:06→18:43)
[2020-04-27 05:58] LABS: Basophils % 0.1 % (0.0-0.8); Eosinophils % 0.1 % (0.00-10.9); Hematocrit 30.2 VOL% (35.7-47.0); Hemoglobin 10.2 GM/DL (12.0-16.0); Immature Granulocytes % 0.4 %; Immature Granulocytes Absolute 0.04 #; Lymphocytes # 0.8 10*3/uL (1.4-4.0); Mean Corpuscular HGB Conc 33.8 GM/DL (32-36); Mean Corpuscular Volume 92.1 FL (87-102); Mean Platelet Volume 9.8 FL (9.6-12.0); Monocytes % 8.9 % (1.7-12.7); Neutrophils % 82.5 % (38.7-73.9); Platelet Count 174 T/CUMM (130-400); Red Blood Count 3.28 MC/CUMM (3.8-5.5); Red Cell Distribution Width 14.5 % (9.3-17.3); White Blood Count 9.9 T/CUMM (4-12)
[2020-04-27 06:48] LABS: Calcium 8.4 MG/DL (8.5-10.1); Osmolality,Calculated 269.1 MOS/KG (273-304)
[2020-04-27] MEDS: LEVOTHYROXINE 25 MCG TABLET PO SCH (06:49)
[2020-04-27 06:52] LABS: Alanine Aminotransferase 102 U/L (13-56); Albumin 3.1 G/DL (3.4-5.0); Alkaline Phosphatase 62 U/L (45-117); Aspartate Amino Transferase 38 U/L (0-37); Bilirubin,Indirect 1.8 MG/DL (0.0-1.0); Blood Urea Nitrogen 12 MG/DL (7-18); Calcium 8.6 MG/DL (8.5-10.1); Estimated Glom Filtration Rate 79 ML/MIN; Glucose 103 MG/DL (74-106); Osmolality,Calculated 267.2 MOS/KG (273-304); Total Protein 5.7 G/DL (6.4-8.3)
[2020-04-27 06:55] LABS: Troponin I 0.376 NG/ML (0.00-0.045)
[2020-04-27] MEDS: INSULIN LISPRO 100 UNIT/ML SUBCUT SCH ×4 (08:11→21:43)
[2020-04-27] MEDS: carvediloL 3.125 MG TABLET PO SCH ×2 (09:51→21:42)
[2020-04-27] MEDS: lisinopriL 5 MG TABLET PO SCH (09:51)
[2020-04-27] MEDS: DOCUSATE SODIUM 100 MG CAPSULE PO SCH (09:51)
[2020-04-27] MEDS: ASPIRIN EC 81 MG TABLET PO SCH (09:51)
[2020-04-27] MEDS: CHLORHEXIDINE 0.12% ORAL RINSE 60 ML BOTTLE SWISH/SPIT SCH ×2 (09:52→21:43)
[2020-04-27] MEDS: BUDESONIDE/FORMOTEROL 80-4.5 INHALER 6.9 GM INH SCH ×2 (09:52→21:43)
[2020-04-27] MEDS: MONTELUKAST 10 MG TABLET PO SCH (09:52)
[2020-04-27] MEDS: POLYETHYLENE GLYCOL POWDER 17 GM PACK PO SCH (09:52)
[2020-04-27] MEDS: predniSONE 10 MG TABLET PO SCH ×2 (09:52→21:42)
[2020-04-27] MEDS: FERROUS SULFATE 325 MG TABLET PO SCH (09:52)
[2020-04-27] MEDS: GABAPENTIN 300 MG CAPSULE PO SCH ×3 (09:52→21:42)
[2020-04-27] MEDS: PANTOPRAZOLE 40 MG TABLET PO SCH (09:52)
[2020-04-27] MEDS: hydroCHLOROthiazide 12.5 MG CAPSULE PO SCH (09:54)
[2020-04-27] MEDS: amLODIPine 5 MG TABLET PO SCH (09:54)
[2020-04-27] MEDS: HYDROmorphone 2 MG TABLET PO PRN (11:56)
[2020-04-27] MEDS: ATORVASTATIN 40 MG TABLET PO SCH (21:43)
[2020-04-28] MEDS: HYDROmorphone 2 MG TABLET PO PRN ×2 (00:20→09:26)
[2020-04-28] MEDS: ALBUTEROL/IPRATROPIUM 3 ML NEB RESP TX SCH ×2 (01:49→09:30)
[2020-04-28 05:26] LABS: Basophils % 0.1 % (0.0-0.8); Eosinophils % 0.1 % (0.00-10.9); Hematocrit 29.5 VOL% (35.7-47.0); Hemoglobin 9.9 GM/DL (12.0-16.0); Immature Granulocytes % 0.6 %; Immature Granulocytes Absolute 0.07 #; Lymphocytes # 0.6 10*3/uL (1.4-4.0); Lymphocytes % 4.5 % (21.3-54.2); Mean Corpuscular HGB Conc 33.6 GM/DL (32-36); Mean Corpuscular Volume 94.2 FL (87-102); Mean Platelet Volume 9.9 FL (9.6-12.0); Monocytes % 4.5 % (1.7-12.7); Neutrophils % 90.2 % (38.7-73.9); Platelet Count 204 T/CUMM (130-400); Red Blood Count 3.13 MC/CUMM (3.8-5.5); Red Cell Distribution Width 14.3 % (9.3-17.3); White Blood Count 12.5 T/CUMM (4-12)
[2020-04-28 05:42] LABS: Albumin 3.1 G/DL (3.4-5.0); Bilirubin,Total 1.9 MG/DL (0.2-1.0); Calcium 8.7 MG/DL (8.5-10.1); Osmolality,Calculated 270.2 MOS/KG (273-304); Total Protein 5.9 G/DL (6.4-8.3)
[2020-04-28] MEDS: oxyCODONE/ACETAMINOPHEN 5-325 MG TABLET PO PRN (05:48)
[2020-04-28] MEDS: LEVOTHYROXINE 25 MCG TABLET PO SCH (05:49)
[2020-04-28] MEDS: INSULIN LISPRO 100 UNIT/ML SUBCUT SCH (08:04)
[2020-04-28 08:17] LABS: Anisocytosis 1+; Band Neutrophils 2 % (0-10); Lymphocytes 4 % (20-55); Macrocytosis 1+; Platelet Estimate Normal; Segmented Neutrophils 90 % (50-85); Total Cells Counted 100
[2020-04-28 08:23] VITALS: BP 154/96
[2020-04-28] MEDS: GABAPENTIN 300 MG CAPSULE PO SCH (09:26)
[2020-04-28] MEDS: carvediloL 3.125 MG TABLET PO SCH (09:26)
[2020-04-28] MEDS: hydroCHLOROthiazide 12.5 MG CAPSULE PO SCH (09:26)
[2020-04-28] MEDS: predniSONE 10 MG TABLET PO SCH (09:27)
[2020-04-28] MEDS: lisinopriL 5 MG TABLET PO SCH (09:27)
[2020-04-28] MEDS: amLODIPine 5 MG TABLET PO SCH (09:27)
[2020-04-28] MEDS: POLYETHYLENE GLYCOL POWDER 17 GM PACK PO SCH (09:27)
[2020-04-28] MEDS: MONTELUKAST 10 MG TABLET PO SCH (09:27)
[2020-04-28] MEDS: PANTOPRAZOLE 40 MG TABLET PO SCH (09:27)
[2020-04-28] MEDS: DOCUSATE SODIUM 100 MG CAPSULE PO SCH (09:27)
[2020-04-28] MEDS: ASPIRIN EC 81 MG TABLET PO SCH (09:27)
[2020-04-28] MEDS: FERROUS SULFATE 325 MG TABLET PO SCH (09:27)
[2020-04-28] MEDS: CHLORHEXIDINE 0.12% ORAL RINSE 60 ML BOTTLE SWISH/SPIT SCH (09:27)
[2020-04-28] MEDS: BUDESONIDE/FORMOTEROL 80-4.5 INHALER 6.9 GM INH SCH (09:50)
== END 2020-04-28 11:55 | disposition home health service (06) | DRG 165 ==
LOC: N.TELEN 04-19 10:46 → N.CVR 04-21 10:28 → N.TELES 04-22 12:04

== ENCOUNTER 2020-05-09 14:50 | Inpatient (IN) ==
[2020-05-09] MEDS ORDERED: HYDROmorphone 2 MG/1 ML VIAL ONE (15:43)
[2020-05-09] MEDS ORDERED: GLUCAGON 1 MG VIAL IM PRN ×2 (15:44)
[2020-05-09] MEDS ORDERED: DEXTROSE 50% 25 GM/50 ML VIAL IV PRN ×2 (15:44)
[2020-05-09] MEDS ORDERED: HYDROmorphone 2 MG/1 ML VIAL IV ONE (15:45)
[2020-05-09] MEDS ORDERED: HYDROmorphone 2 MG TABLET PO PRN (15:50)
[2020-05-09] MEDS ORDERED: NITROGLYCERIN SL 0.4 MG TABLET SL PRN (15:50)
[2020-05-09 16:22] LABS: Basophils # 0.1 10*3/uL (0.0-0.2); Basophils % 0.8 % (0.0-0.8); Eosinophils # 0.1 10*3/uL (0.0-0.87); Eosinophils % 1.7 % (0.00-10.9); Hematocrit 40.5 VOL% (35.7-47.0); Hemoglobin 12.7 GM/DL (12.0-16.0); Immature Granulocytes % 0.4 %; Immature Granulocytes Absolute 0.03 #; Lymphocytes # 0.9 10*3/uL (1.4-4.0); Lymphocytes % 11.7 % (21.3-54.2); Mean Corpuscular HGB Conc 31.4 GM/DL (32-36); Mean Corpuscular Volume 103.1 FL (87-102); Mean Platelet Volume 8.6 FL (9.6-12.0); Monocytes % 7.5 % (1.7-12.7); Neutrophils % 77.9 % (38.7-73.9); Platelet Count 158 T/CUMM (130-400); Red Blood Count 3.93 MC/CUMM (3.8-5.5); White Blood Count 7.5 T/CUMM (4-12)
[2020-05-09 16:35] LABS: PT Patient Result 10.7 SECS (9.8-11.9); Partial Thromboplastin Time 27.9 SECS (23.9-33.8)
[2020-05-09 16:42] LABS: Albumin 3.3 G/DL (3.4-5.0); Bilirubin,Total 0.9 MG/DL (0.2-1.0); Calcium 8.7 MG/DL (8.5-10.1); Osmolality,Calculated 276.7 MOS/KG (273-304); Total Protein 6.2 G/DL (6.4-8.3)
[2020-05-09] MEDS: INSULIN REGULAR 100 UNIT/ML SUBCUT SCH ×2 (17:27→20:12)
[2020-05-09] MEDS ORDERED: NALOXONE 0.4 MG/ML VIAL IV ONE (17:29)
[2020-05-09] MEDS ORDERED: NALOXONE 0.4 MG/ML VIAL ONE (17:31)
[2020-05-09 18:53] LABS: Basophils # 0.1 10*3/uL (0.0-0.2); Basophils % 0.6 % (0.0-0.8); Eosinophils # 0.1 10*3/uL (0.0-0.87); Eosinophils % 1.1 % (0.00-10.9); Hematocrit 40.6 VOL% (35.7-47.0); Hemoglobin 12.5 GM/DL (12.0-16.0); Immature Granulocytes % 0.6 %; Immature Granulocytes Absolute 0.06 #; Lymphocytes # 0.5 10*3/uL (1.4-4.0); Mean Corpuscular HGB Conc 30.8 GM/DL (32-36); Mean Corpuscular Volume 104.9 FL (87-102); Mean Platelet Volume 8.9 FL (9.6-12.0); Monocytes % 5.3 % (1.7-12.7); Neutrophils % 87.4 % (38.7-73.9); Platelet Count 148 T/CUMM (130-400); Red Blood Count 3.87 MC/CUMM (3.8-5.5); Red Cell Distribution Width 16.6 % (9.3-17.3); White Blood Count 10.5 T/CUMM (4-12)
[2020-05-09] MEDS: SODIUM CHLORIDE 0.9% 1,000 ML IV SCH (19:10)
[2020-05-09] MEDS ORDERED: ZALEPLON 5 MG CAPSULE PO PRN (21:08)
[2020-05-09] MEDS: ATORVASTATIN 40 MG TABLET PO SCH (22:07)
[2020-05-09] MEDS: carvediloL 3.125 MG TABLET PO SCH (22:07)
[2020-05-09] MEDS: BUDESONIDE/FORMOTEROL 80-4.5 INHALER 6.9 GM INH SCH (22:07)
[2020-05-10 04:04] LABS: Basophils % 0.7 % (0.0-0.8); Eosinophils # 0.1 10*3/uL (0.0-0.87); Eosinophils % 1.8 % (0.00-10.9); Hematocrit 38.4 VOL% (35.7-47.0); Hemoglobin 11.7 GM/DL (12.0-16.0); Immature Granulocytes % 0.3 %; Immature Granulocytes Absolute 0.02 #; Lymphocytes # 0.8 10*3/uL (1.4-4.0); Lymphocytes % 12.7 % (21.3-54.2); Mean Corpuscular HGB Conc 30.5 GM/DL (32-36); Mean Corpuscular Volume 105.8 FL (87-102); Mean Platelet Volume 8.7 FL (9.6-12.0); Neutrophils % 75.5 % (38.7-73.9); Platelet Count 158 T/CUMM (130-400); Red Blood Count 3.63 MC/CUMM (3.8-5.5); Red Cell Distribution Width 16.9 % (9.3-17.3); White Blood Count 6.1 T/CUMM (4-12)
[2020-05-10 04:20] LABS: Albumin 2.7 G/DL (3.4-5.0); Bilirubin,Total 0.8 MG/DL (0.2-1.0); Calcium 8.5 MG/DL (8.5-10.1); Osmolality,Calculated 282.1 MOS/KG (273-304); Total Protein 5.7 G/DL (6.4-8.3)
[2020-05-10 04:50] LABS: Hypochromasia 1+; Macrocytosis 1+
[2020-05-10 04:51] LABS: Anisocytosis 1+; Platelet Estimate Adequate
[2020-05-10] MEDS: LEVOTHYROXINE 25 MCG TABLET PO SCH (06:54)
[2020-05-10] MEDS: INSULIN REGULAR 100 UNIT/ML SUBCUT SCH ×4 (07:27→20:57)
[2020-05-10] MEDS: FERROUS SULFATE 325 MG TABLET PO SCH ×2 (07:35→08:19)
[2020-05-10] MEDS: ASPIRIN EC 81 MG TABLET PO SCH ×2 (07:35→08:18)
[2020-05-10] MEDS: amLODIPine 5 MG TABLET PO SCH ×2 (07:35→08:19)
[2020-05-10] MEDS: LEVOFLOXACIN 500 MG TABLET PO SCH ×2 (07:35→08:19)
[2020-05-10] MEDS: carvediloL 3.125 MG TABLET PO SCH ×3 (07:35→20:56)
[2020-05-10] MEDS: hydroCHLOROthiazide 12.5 MG CAPSULE PO SCH ×2 (07:35→08:19)
[2020-05-10] MEDS: BUDESONIDE/FORMOTEROL 80-4.5 INHALER 6.9 GM INH SCH ×3 (07:36→20:56)
[2020-05-10] MEDS: lisinopriL 5 MG TABLET PO SCH ×2 (07:36→08:19)
[2020-05-10] MEDS: DOCUSATE SODIUM 100 MG CAPSULE PO SCH (08:18)
[2020-05-10] MEDS: HYDROmorphone 2 MG TABLET PO PRN ×3 (11:28→20:06)
[2020-05-10] MEDS: SODIUM CHLORIDE 0.9% 1,000 ML IV SCH (16:28)
[2020-05-10] MEDS: ATORVASTATIN 40 MG TABLET PO SCH (20:55)
[2020-05-11] MEDS: HYDROmorphone 2 MG TABLET PO PRN ×6 (00:21→22:16)
[2020-05-11] MEDS: LEVOTHYROXINE 25 MCG TABLET PO SCH (05:53)
[2020-05-11] MEDS: INSULIN REGULAR 100 UNIT/ML SUBCUT SCH ×5 (08:08→22:15)
[2020-05-11] MEDS: lisinopriL 5 MG TABLET PO SCH (08:52)
[2020-05-11] MEDS: FERROUS SULFATE 325 MG TABLET PO SCH (08:52)
[2020-05-11] MEDS: hydroCHLOROthiazide 12.5 MG CAPSULE PO SCH (08:52)
[2020-05-11] MEDS: LEVOFLOXACIN 500 MG TABLET PO SCH (08:52)
[2020-05-11] MEDS: ASPIRIN EC 81 MG TABLET PO SCH (08:53)
[2020-05-11] MEDS: DOCUSATE SODIUM 100 MG CAPSULE PO SCH (08:53)
[2020-05-11] MEDS: amLODIPine 5 MG TABLET PO SCH (08:53)
[2020-05-11] MEDS: carvediloL 3.125 MG TABLET PO SCH ×2 (08:53→22:15)
[2020-05-11] MEDS: BUDESONIDE/FORMOTEROL 80-4.5 INHALER 6.9 GM INH SCH ×2 (08:58→22:16)
[2020-05-11] MEDS: ATORVASTATIN 40 MG TABLET PO SCH (22:16)
[2020-05-12] MEDS: HYDROmorphone 2 MG TABLET PO PRN ×6 (02:05→22:33)
[2020-05-12] MEDS: LEVOTHYROXINE 25 MCG TABLET PO SCH (05:56)
[2020-05-12 06:31] LABS: Calcium 8.9 MG/DL (8.5-10.1); Osmolality,Calculated 269.1 MOS/KG (273-304)
[2020-05-12 06:37] LABS: Basophils % 0.7 % (0.0-0.8); Eosinophils # 0.1 10*3/uL (0.0-0.87); Eosinophils % 1.5 % (0.00-10.9); Hematocrit 42.8 VOL% (35.7-47.0); Hemoglobin 14.1 GM/DL (12.0-16.0); Immature Granulocytes % 0.2 %; Immature Granulocytes Absolute 0.01 #; Lymphocytes # 0.9 10*3/uL (1.4-4.0); Lymphocytes % 15.4 % (21.3-54.2); Mean Corpuscular HGB Conc 32.9 GM/DL (32-36); Mean Corpuscular Volume 99.8 FL (87-102); Mean Platelet Volume 9.4 FL (9.6-12.0); Monocytes % 10.6 % (1.7-12.7); Neutrophils % 71.6 % (38.7-73.9); Platelet Count 146 T/CUMM (130-400); Red Blood Count 4.29 MC/CUMM (3.8-5.5); Red Cell Distribution Width 16.9 % (9.3-17.3)
[2020-05-12 06:46] LABS: Anisocytosis 1+; Platelet Estimate Adequate
[2020-05-12 06:47] LABS: Macrocytosis Slight
[2020-05-12] MEDS ORDERED: MAGNESIUM SULF RIDER 2 GM in PREMIX 1 EACH IV PRN (07:19)
[2020-05-12] MEDS ORDERED: MAGNESIUM SULF RIDER 4 GM in PREMIX 1 EACH IV PRN (07:19)
[2020-05-12] MEDS ORDERED: POTASSIUM CHLORIDE 20 MEQ TABLET PO PRN (07:19)
[2020-05-12] MEDS: amLODIPine 5 MG TABLET PO SCH (09:30)
[2020-05-12] MEDS: hydroCHLOROthiazide 12.5 MG CAPSULE PO SCH (09:31)
[2020-05-12] MEDS: LEVOFLOXACIN 500 MG TABLET PO SCH (09:32)
[2020-05-12] MEDS: DOCUSATE SODIUM 100 MG CAPSULE PO SCH (09:32)
[2020-05-12] MEDS: ASPIRIN EC 81 MG TABLET PO SCH (09:32)
[2020-05-12] MEDS: carvediloL 3.125 MG TABLET PO SCH ×2 (09:33→20:50)
[2020-05-12] MEDS: FERROUS SULFATE 325 MG TABLET PO SCH (09:33)
[2020-05-12] MEDS: lisinopriL 5 MG TABLET PO SCH (09:33)
[2020-05-12] MEDS: BUDESONIDE/FORMOTEROL 80-4.5 INHALER 6.9 GM INH SCH ×2 (09:35→20:49)
[2020-05-12] MEDS: INSULIN REGULAR 100 UNIT/ML SUBCUT SCH ×4 (10:23→20:50)
[2020-05-12] MEDS ORDERED: NICOTINE 7 MG/24 HR PATCH TRANSDERM PRN (11:40)
[2020-05-12] MEDS: POTASSIUM CHLORIDE 20 MEQ TABLET PO PRN ×3 (12:09→18:37)
[2020-05-12] MEDS: ATORVASTATIN 40 MG TABLET PO SCH (20:50)
[2020-05-13] MEDS: HYDROmorphone 2 MG TABLET PO PRN ×3 (02:34→11:28)
[2020-05-13 05:39] LABS: Calcium 9.5 MG/DL (8.5-10.1); Osmolality,Calculated 270.8 MOS/KG (273-304)
[2020-05-13] MEDS: LEVOTHYROXINE 25 MCG TABLET PO SCH (06:17)
[2020-05-13] MEDS ORDERED: MORPHINE 4 MG/1 ML VIAL IV ONE (08:55)
[2020-05-13] MEDS: LEVOFLOXACIN 500 MG TABLET PO SCH (09:35)
[2020-05-13] MEDS: hydroCHLOROthiazide 12.5 MG CAPSULE PO SCH (09:35)
[2020-05-13] MEDS: amLODIPine 5 MG TABLET PO SCH (09:35)
[2020-05-13] MEDS: lisinopriL 5 MG TABLET PO SCH (09:36)
[2020-05-13] MEDS: carvediloL 3.125 MG TABLET PO SCH (09:36)
[2020-05-13] MEDS: ASPIRIN EC 81 MG TABLET PO SCH (09:36)
[2020-05-13] MEDS: DOCUSATE SODIUM 100 MG CAPSULE PO SCH (09:36)
[2020-05-13] MEDS: FERROUS SULFATE 325 MG TABLET PO SCH (09:36)
[2020-05-13] MEDS: INSULIN REGULAR 100 UNIT/ML SUBCUT SCH ×2 (09:36→12:25)
[2020-05-13] MEDS: BUDESONIDE/FORMOTEROL 80-4.5 INHALER 6.9 GM INH SCH (09:48)
[2020-05-13 12:47] VITALS: BP 102/64
== END 2020-05-13 14:13 | disposition home health service (06) | DRG 813 ==
LOC: N.ED 14:50 → N.EDINP 15:44 → N.TELES 17:33 → N.ICU 17:58 → N.TELES 05-10 10:35

== ENCOUNTER 2020-05-19 23:47 | Inpatient (IN) ==
[2020-05-20 02:00] LABS: Barbiturates Screen,Urine Negative (Negative); Benzodiazepines Screen,Urine Negative (Negative); Cannabinoid Screen,Urine Positive (Negative); Opiate Screen,Urine Positive (Negative); Phencyclidine Screen,Urine Negative (Negative)
[2020-05-20 02:05] LABS: Apearance,Urine Slightly Hazy (Clear); Bacteria,Urine Many /HPF (Few); Bilirubin,Urine Negative (Negative); Blood, Urine Small mg/dL (Negative); Glucose,Urine (UA) Negative (Negative); Hyaline Casts,Urine 12 /LPF (0-3); Ketones,Urine Negative (Negative); Mucus,Urine Occasional /LPF (Occasional); Nitrite,Urine Positive (Negative); Protein,Urine 100 MG/DL; RBC,Urine 2 /HPF (0-4); Urine Color Yellow (Yellow); WBC,Urine 35 /HPF (0-6)
[2020-05-20] MEDS ORDERED: ONDANSETRON 4 MG/2 ML VIAL IV PRN (02:12)
[2020-05-20] MEDS ORDERED: ACETAMINOPHEN 500 MG TABLET PO PRN (02:12)
[2020-05-20 02:17] LABS: Thyroid Stimulating Hormone 2.9 uIU/ml (0.358-3.74)
[2020-05-20] MEDS: SODIUM CHLORIDE 0.9% 1,000 ML IV SCH ×2 (02:30→14:05)
[2020-05-20] MEDS: PANTOPRAZOLE 40 MG TABLET PO SCH (10:00)
[2020-05-20] MEDS ORDERED: LEVOFLOXACIN INJ 500 MG in PREMIX 1 EACH IV SCH (13:30)
[2020-05-20] MEDS ORDERED: NALOXONE 0.4 MG/ML VIAL IV PRN (13:41)
[2020-05-20] MEDS: BUDESONIDE/FORMOTEROL 80-4.5 INHALER 6.9 GM INH SCH (21:03)
[2020-05-20] MEDS: carvediloL 3.125 MG TABLET PO SCH (21:03)
[2020-05-21] MEDS: SODIUM CHLORIDE 0.9% 1,000 ML IV SCH ×2 (05:30→22:46)
[2020-05-21 05:57] LABS: Basophils % 0.6 % (0.0-0.8); Eosinophils # 0.1 10*3/uL (0.0-0.87); Eosinophils % 1.3 % (0.00-10.9); Hematocrit 40.5 VOL% (35.7-47.0); Hemoglobin 13.1 GM/DL (12.0-16.0); Immature Granulocytes % 0.2 %; Immature Granulocytes Absolute 0.01 #; Lymphocytes % 21.2 % (21.3-54.2); Mean Corpuscular HGB Conc 32.3 GM/DL (32-36); Mean Corpuscular Volume 100.7 FL (87-102); Mean Platelet Volume 9.1 FL (9.6-12.0); Monocytes % 8.5 % (1.7-12.7); Neutrophils % 68.2 % (38.7-73.9); Platelet Count 160 T/CUMM (130-400); Red Blood Count 4.02 MC/CUMM (3.8-5.5); Red Cell Distribution Width 14.8 % (9.3-17.3); White Blood Count 4.7 T/CUMM (4-12)
[2020-05-21 06:20] LABS: Calcium 8.5 MG/DL (8.5-10.1); Osmolality,Calculated 277.5 MOS/KG (273-304)
[2020-05-21] MEDS: KETOROLAC 30 MG/1 ML VIAL IV PRN ×2 (06:43→12:54)
[2020-05-21] MEDS ORDERED: MAGNESIUM SULF RIDER 2 GM in PREMIX 1 EACH IV ONE (07:44)
[2020-05-21] MEDS: PANTOPRAZOLE 40 MG TABLET PO SCH (09:26)
[2020-05-21] MEDS: carvediloL 3.125 MG TABLET PO SCH ×2 (09:26→20:56)
[2020-05-21] MEDS: ASPIRIN EC 81 MG TABLET PO SCH (09:26)
[2020-05-21] MEDS: LEVOTHYROXINE 25 MCG TABLET PO SCH (09:26)
[2020-05-21] MEDS: BUDESONIDE/FORMOTEROL 80-4.5 INHALER 6.9 GM INH SCH ×2 (09:26→20:57)
[2020-05-21] MEDS: oxyCODONE/ACETAMINOPHEN 5-325 MG TABLET PO PRN ×2 (16:57→22:47)
[2020-05-21] MEDS: SULFAMETHOX/TRIMETHOPRIM 800-160 MG TABLET PO SCH (20:56)
[2020-05-21] MEDS ORDERED: ATORVASTATIN 40 MG TABLET PO SCH (21:00)
[2020-05-22] MEDS: oxyCODONE/ACETAMINOPHEN 5-325 MG TABLET PO PRN ×2 (04:38→10:15)
[2020-05-22 06:25] LABS: Calcium 8.2 MG/DL (8.5-10.1); Osmolality,Calculated 274.7 MOS/KG (273-304)
[2020-05-22 08:13] VITALS: BP 148/88
[2020-05-22] MEDS ORDERED: MULTIVITAMIN (CENTRUM) TABLET PO SCH (09:00)
[2020-05-22] MEDS ORDERED: POTASSIUM CHLORIDE 10 MEQ TABLET PO SCH (09:04)
[2020-05-22] MEDS: BUDESONIDE/FORMOTEROL 80-4.5 INHALER 6.9 GM INH SCH (09:25)
[2020-05-22] MEDS: LEVOTHYROXINE 25 MCG TABLET PO SCH (09:26)
[2020-05-22] MEDS: SULFAMETHOX/TRIMETHOPRIM 800-160 MG TABLET PO SCH (09:26)
[2020-05-22] MEDS: carvediloL 3.125 MG TABLET PO SCH (09:26)
[2020-05-22] MEDS: ASPIRIN EC 81 MG TABLET PO SCH (09:26)
[2020-05-22] MEDS: PANTOPRAZOLE 40 MG TABLET PO SCH (09:26)
[2020-05-22] MEDS: SODIUM CHLORIDE 0.9% 1,000 ML IV SCH (10:16)
== END 2020-05-22 13:59 | disposition home health service (06) | DRG 812 ==
LOC: EDBD → EDUNIT# → N.EDINP 23:47 → N.ED 23:47 → N.TELES 05-20 13:15

== ENCOUNTER 2020-06-13 23:31 | Observation (INO) ==
[2020-06-14] MEDS ORDERED: ENOXAPARIN 30 MG/0.3 ML SYRINGE SUBCUT STA (01:12)
[2020-06-14] MEDS ORDERED: ENOXAPARIN 40 MG/0.4 ML SYRINGE ONE ×2 (01:32→01:33)
[2020-06-14] MEDS ORDERED: DEXTROSE 50% 25 GM/50 ML VIAL IV PRN (02:51)
[2020-06-14] MEDS ORDERED: ONDANSETRON 4 MG/2 ML VIAL IV PRN (02:51)
[2020-06-14] MEDS ORDERED: hydrALAZINE 20 MG/1 ML VIAL IV PRN (02:51)
[2020-06-14] MEDS ORDERED: GLUCAGON 1 MG VIAL IM PRN (02:51)
[2020-06-14] MEDS ORDERED: ACETAMINOPHEN 325 MG TABLET PO PRN (02:51)
[2020-06-14] MEDS ORDERED: ALBUTEROL 2.5 MG/3 ML NEB RESP TX PRN (02:55)
[2020-06-14 03:14] LABS: Barbiturates Screen,Urine Negative (Negative); Benzodiazepines Screen,Urine Negative (Negative); Cannabinoid Screen,Urine Positive (Negative); Opiate Screen,Urine Positive (Negative); Phencyclidine Screen,Urine Negative (Negative)
[2020-06-14] MEDS ORDERED: cefTRIAXone 1,000 MG in SYRINGE 1 EACH IV SCH ×2 (04:00→17:00)
[2020-06-14 04:10] LABS: Basophils % 0.5 % (0.0-0.8); Eosinophils % 0.4 % (0.00-10.9); Hemoglobin 14.5 GM/DL (12.0-16.0); Immature Granulocytes % 0.7 %; Immature Granulocytes Absolute 0.05 #; Lymphocytes % 26.4 % (21.3-54.2); Mean Corpuscular HGB Conc 32.2 GM/DL (32-36); Mean Corpuscular Volume 99.6 FL (87-102); Mean Platelet Volume 8.9 FL (9.6-12.0); Monocytes % 7.5 % (1.7-12.7); Neutrophils % 64.5 % (38.7-73.9); Platelet Count 155 T/CUMM (130-400); Red Blood Count 4.52 MC/CUMM (3.8-5.5); Red Cell Distribution Width 14.6 % (9.3-17.3); White Blood Count 7.6 T/CUMM (4-12)
[2020-06-14 04:18] LABS: Calcium 8.6 MG/DL (8.5-10.1); Osmolality,Calculated 283.3 MOS/KG (273-304)
[2020-06-14 04:27] LABS: Risk Ratio 3.07; Thyroid Stimulating Hormone 1.15 uIU/ml (0.358-3.74); VLDL CHOLESTEROL 24.8 MG/DL
[2020-06-14] MEDS ORDERED: LEVOTHYROXINE 25 MCG TABLET PO SCH (06:00)
[2020-06-14] MEDS ORDERED: carvediloL 3.125 MG TABLET PO SCH (08:00)
[2020-06-14 08:07] VITALS: BP 110/82
[2020-06-14] MEDS ORDERED: PANTOPRAZOLE 40 MG TABLET PO SCH (09:00)
[2020-06-14] MEDS ORDERED: BUDESONIDE/FORMOTEROL 80-4.5 INHALER 6.9 GM INH SCH (09:00)
[2020-06-14] MEDS ORDERED: amLODIPine 5 MG TABLET PO SCH (09:00)
[2020-06-14] MEDS ORDERED: GABAPENTIN 300 MG CAPSULE PO SCH (09:00)
[2020-06-14] MEDS ORDERED: ASPIRIN EC 81 MG TABLET PO SCH (09:00)
[2020-06-14] MEDS ORDERED: POTASSIUM CHLORIDE 20 MEQ/15 ML UDCUP PER TUBE PRN (09:05)
[2020-06-14] MEDS ORDERED: POTASSIUM CHLORIDE 20 MEQ TABLET PO PRN (09:05)
[2020-06-14] MEDS ORDERED: POTASSIUM CHLORIDE 20 MEQ TABLET PO ONE (11:46)
[2020-06-14] MEDS ORDERED: ENOXAPARIN 40 MG/0.4 ML SYRINGE SUBCUT SCH ×2 (13:00)
[2020-06-14] MEDS ORDERED: ATORVASTATIN 40 MG TABLET PO SCH (21:00)
== END 2020-06-14 10:40 | disposition left against medical advice (07) ==
LOC: N.ED 23:31 → N.EDINP 23:31 → SUATTDRO 06-14 02:51 → N.EDINP 06-14 04:20 → N.TELES 06-14 04:48
PROVIDERS: ADMIT Internal Medicine Critical Care Medicine; ATTEND Family Medicine

== ENCOUNTER 2020-09-26 19:27 | Observation (INO) ==
[2020-09-26 20:08] LABS: Basophils % 0.3 % (0.0-0.8); Eosinophils % 0.1 % (0.00-10.9); Hematocrit 34.8 VOL% (35.7-47.0); Hemoglobin 11.3 GM/DL (12.0-16.0); Immature Granulocytes % 0.5 %; Immature Granulocytes Absolute 0.04 #; Lymphocytes # 1.4 10*3/uL (1.4-4.0); Lymphocytes % 15.7 % (21.3-54.2); Mean Corpuscular HGB Conc 32.5 GM/DL (32-36); Mean Corpuscular Volume 91.6 FL (87-102); Mean Platelet Volume 9.6 FL (9.6-12.0); Monocytes % 8.1 % (1.7-12.7); Neutrophils % 75.3 % (38.7-73.9); Platelet Count 160 T/CUMM (130-400); Red Cell Distribution Width 12.8 % (9.3-17.3); White Blood Count 8.7 T/CUMM (4-12)
[2020-09-26 20:18] LABS: PT Patient Result 10.7 SECS (9.8-11.9)
[2020-09-26] MEDS ORDERED: methylPREDNISolone SOD SUC 125 MG/2 ML VIAL IV STA (20:18)
[2020-09-26 20:22] LABS: Bilirubin,Total 0.4 MG/DL (0.2-1.0); Calcium 8.9 MG/DL (8.5-10.1); Osmolality,Calculated 284.3 MOS/KG (273-304); Total Protein 7.1 G/DL (6.4-8.3)
[2020-09-26] MEDS ORDERED: ALBUTEROL/IPRATROPIUM 3 ML NEB RESP TX STA (20:33)
[2020-09-26 20:53] LABS: Bacteria,Urine Occasional /HPF (Few); Bilirubin,Urine Negative (Negative); Blood, Urine Negative (Negative); Glucose,Urine (UA) Negative (Negative); Ketones,Urine Negative (Negative); Mucus,Urine Occasional /LPF (Occasional); Nitrite,Urine Negative (Negative); Protein,Urine Negative; RBC,Urine 1 /HPF (0-4); Squamous Epithelial Cell,Urine Occasional /HPF (0-10); Urine Appearance CLEAR (Clear); Urine Color Straw (Yellow); Urine Specific Gravity 1.008 (1.001-1.035); Urine Urobilinogen < 2.0 EU/DL (0.2-1.0); WBC,Urine 5 /HPF (0-6)
[2020-09-26] MEDS ORDERED: diphenhydrAMINE CAP 25 MG CAPSULE PO PRN (21:16)
[2020-09-26] MEDS ORDERED: GLUCAGON 1 MG VIAL IM PRN (21:16)
[2020-09-26] MEDS ORDERED: ZALEPLON 5 MG CAPSULE PO PRN (21:16)
[2020-09-26] MEDS ORDERED: hydrALAZINE 20 MG/1 ML VIAL IV PRN (21:16)
[2020-09-26] MEDS ORDERED: MORPHINE 4 MG/1 ML VIAL IV PRN (21:16)
[2020-09-26] MEDS ORDERED: guaiFENesin/DM ER 600-30 MG TABLET PO PRN (21:16)
[2020-09-26] MEDS ORDERED: DEXTROSE 50% 25 GM/50 ML VIAL IV PRN (21:16)
[2020-09-26] MEDS ORDERED: ONDANSETRON 4 MG/2 ML VIAL IV PRN (21:16)
[2020-09-26] MEDS ORDERED: NICOTINE 21 MG/24 HR PATCH TRANSDERM PRN (21:16)
[2020-09-26] MEDS ORDERED: ACETAMINOPHEN 325 MG TABLET PO PRN (21:16)
[2020-09-26] MEDS ORDERED: AZITHROMYCIN INJ 500 MG in SODIUM CHLORIDE 0.9% 250 ML IV SCH (21:30)
[2020-09-26] MEDS: POTASSIUM CHLORIDE 20 MEQ TABLET PO PRN (23:10)
[2020-09-26] MEDS: FUROSEMIDE 40 MG/4 ML VIAL IV SCH (23:10)
[2020-09-27] MEDS: ALBUTEROL/IPRATROPIUM 3 ML NEB RESP TX SCH ×2 (01:29→07:01)
[2020-09-27] MEDS: POTASSIUM CHLORIDE 20 MEQ TABLET PO PRN ×3 (02:39→09:07)
[2020-09-27] MEDS ORDERED: methylPREDNISolone SOD SUC 40 MG/1 ML VIAL IV SCH (05:00)
[2020-09-27 06:05] LABS: Basophils % 0.3 % (0.0-0.8); Hematocrit 37.8 VOL% (35.7-47.0); Hemoglobin 12.1 GM/DL (12.0-16.0); Immature Granulocytes % 0.4 %; Immature Granulocytes Absolute 0.03 #; Lymphocytes # 0.7 10*3/uL (1.4-4.0); Lymphocytes % 9.1 % (21.3-54.2); Mean Corpuscular Volume 92.4 FL (87-102); Mean Platelet Volume 9.3 FL (9.6-12.0); Monocytes % 0.7 % (1.7-12.7); Neutrophils % 89.5 % (38.7-73.9); Platelet Count 172 T/CUMM (130-400); Red Blood Count 4.09 MC/CUMM (3.8-5.5); Red Cell Distribution Width 12.7 % (9.3-17.3); White Blood Count 7.1 T/CUMM (4-12)
[2020-09-27] MEDS ORDERED: LEVOTHYROXINE 25 MCG TABLET PO SCH (06:30)
[2020-09-27 06:31] LABS: Calcium 8.9 MG/DL (8.5-10.1); Osmolality,Calculated 289.5 MOS/KG (273-304)
[2020-09-27 08:09] VITALS: BP 123/85
[2020-09-27] MEDS ORDERED: BUDESONIDE/FORMOTEROL 80-4.5 INHALER 6.9 GM INH SCH (09:00)
[2020-09-27] MEDS ORDERED: ASPIRIN EC 81 MG TABLET PO SCH (09:00)
[2020-09-27] MEDS ORDERED: AZITHROMYCIN 250 MG TABLET PO SCH (09:00)
[2020-09-27] MEDS ORDERED: carvediloL 3.125 MG TABLET PO SCH (09:00)
[2020-09-27] MEDS ORDERED: amLODIPine 5 MG TABLET PO SCH (09:00)
[2020-09-27] MEDS ORDERED: PANTOPRAZOLE 40 MG TABLET PO SCH (09:00)
[2020-09-27] MEDS ORDERED: ENOXAPARIN 40 MG/0.4 ML SYRINGE SUBCUT SCH (09:00)
[2020-09-27] MEDS: FUROSEMIDE 40 MG/4 ML VIAL IV SCH (09:12)
[2020-09-27] MEDS ORDERED: POTASSIUM CHLORIDE RIDER 10 MEQ in PREMIX 1 EACH IV SCH (11:00)
[2020-09-27] MEDS ORDERED: ATORVASTATIN 40 MG TABLET PO SCH (21:00)
== END 2020-09-27 11:40 | disposition home or self-care (01) ==
LOC: EDUNIT# → EDBD → N.ED 19:27 → N.EDINP 19:27 → N.TELES 22:07
PROVIDERS: ADMIT Internal Medicine; ATTEND Internal Medicine

== ENCOUNTER 2020-10-29 22:53 | Observation (INO) ==
[2020-10-29] MEDS ORDERED: SODIUM CHLORIDE 0.9% 1,000 ML IV STA (23:32)
[2020-10-29 23:52] LABS: Basophils % 0.4 % (0.0-0.8); Eosinophils # 0.2 10*3/uL (0.0-0.87); Eosinophils % 1.4 % (0.00-10.9); Hematocrit 45.4 VOL% (35.7-47.0); Hemoglobin 13.8 GM/DL (12.0-16.0); Immature Granulocytes % 0.4 %; Immature Granulocytes Absolute 0.04 #; Lymphocytes # 1.6 10*3/uL (1.4-4.0); Lymphocytes % 14.1 % (21.3-54.2); Mean Corpuscular HGB Conc 30.4 GM/DL (32-36); Mean Corpuscular Volume 91.3 FL (87-102); Mean Platelet Volume 8.8 FL (9.6-12.0); Monocytes % 8.1 % (1.7-12.7); Neutrophils % 75.6 % (38.7-73.9); Platelet Count 201 T/CUMM (130-400); Red Blood Count 4.97 MC/CUMM (3.8-5.5); Red Cell Distribution Width 13.2 % (9.3-17.3); White Blood Count 11.1 T/CUMM (4-12)
[2020-10-30 00:01] LABS: Alanine Aminotransferase 20 U/L (13-56); Albumin 3.5 G/DL (3.4-5.0); Alkaline Phosphatase 90 U/L (45-117); Aspartate Amino Transferase 11 U/L (0-37); Bilirubin,Total < 0.39 MG/DL (0.2-1.0); Blood Urea Nitrogen 15 MG/DL (7-18); Calcium 8.9 MG/DL (8.5-10.1); Carbon Dioxide 44 MMOL/L (21-32); Estimated Glom Filtration Rate 84 ML/MIN; Glucose 136 MG/DL (74-106); Sodium 143 MMOL/L (136-145); Total Protein 7.3 G/DL (6.4-8.3)
[2020-10-30 00:02] LABS: PT Patient Result 10.3 SECS (9.8-11.9)
[2020-10-30 00:03] LABS: Potassium 2.4 MMOL/L (3.5-5.1)
[2020-10-30] MEDS ORDERED: POTASSIUM CHLORIDE 20 MEQ TABLET PO STA (00:03)
[2020-10-30] MEDS ORDERED: MORPHINE 4 MG/1 ML VIAL IV STA (03:00)
[2020-10-30] MEDS ORDERED: ONDANSETRON 4 MG/2 ML VIAL IV PRN (04:23)
[2020-10-30] MEDS ORDERED: hydrALAZINE 20 MG/1 ML VIAL IV PRN (04:23)
[2020-10-30] MEDS ORDERED: DEXTROSE 50% 25 GM/50 ML VIAL IV PRN (04:23)
[2020-10-30] MEDS ORDERED: GLUCAGON 1 MG VIAL IM PRN (04:23)
[2020-10-30] MEDS ORDERED: DOCUSATE SODIUM 100 MG CAPSULE PO PRN (04:23)
[2020-10-30] MEDS ORDERED: ACETAMINOPHEN 325 MG TABLET PO PRN (04:23)
[2020-10-30] MEDS ORDERED: ALBUTEROL 2.5 MG/3 ML NEB RESP TX PRN (04:28)
[2020-10-30] MEDS ORDERED: POTASSIUM CHLORIDE 20 MEQ TABLET PO PRN (04:31)
[2020-10-30 07:25] LABS: Risk Ratio 2.88; VLDL CHOLESTEROL 29.6 MG/DL
[2020-10-30] MEDS: LEVOTHYROXINE 50 MCG TABLET PO SCH (07:28)
[2020-10-30] MEDS: oxyCODONE/ACETAMINOPHEN 5-325 MG TABLET PO SCH ×3 (07:28→21:00)
[2020-10-30] MEDS ORDERED: ENOXAPARIN 40 MG/0.4 ML SYRINGE SUBCUT SCH (08:00)
[2020-10-30] MEDS ORDERED: carvediloL 3.125 MG TABLET PO SCH (09:00)
[2020-10-30] MEDS: ASPIRIN EC 81 MG TABLET PO SCH (09:39)
[2020-10-30] MEDS: PANTOPRAZOLE 40 MG TABLET PO SCH (09:39)
[2020-10-30] MEDS: amLODIPine 5 MG TABLET PO SCH (09:39)
[2020-10-30] MEDS: METOPROLOL TARTRATE 25 MG TABLET PO SCH ×2 (09:39→20:54)
[2020-10-30] MEDS: GABAPENTIN 300 MG CAPSULE PO SCH ×3 (09:39→20:53)
[2020-10-30] MEDS: BUDESONIDE/FORMOTEROL 80-4.5 INHALER 6.9 GM INH SCH ×2 (09:40→20:54)
[2020-10-30] MEDS: ENOXAPARIN 30 MG/0.3 ML SYRINGE SUBCUT SCH (09:41)
[2020-10-30] MEDS: POTASSIUM CHLORIDE 20 MEQ TABLET PO STA ×2 (11:50→13:56)
[2020-10-30] MEDS: MORPHINE 4 MG/1 ML VIAL IV PRN (13:53)
[2020-10-30] MEDS ORDERED: MONTELUKAST 10 MG TABLET PO SCH (21:00)
[2020-10-30] MEDS ORDERED: ROSUVASTATIN 20 MG TABLET PO SCH (21:00)
[2020-10-31] MEDS: LEVOTHYROXINE 50 MCG TABLET PO SCH (06:07)
[2020-10-31] MEDS: oxyCODONE/ACETAMINOPHEN 5-325 MG TABLET PO SCH (06:07)
[2020-10-31 06:16] LABS: Calcium 8.7 MG/DL (8.5-10.1)
[2020-10-31 06:46] LABS: Potassium 2.8 MMOL/L (3.5-5.1)
[2020-10-31 06:54] LABS: Osmolality,Calculated 280.3 MOS/KG (273-304)
[2020-10-31] MEDS ORDERED: POTASSIUM CHLORIDE 20 MEQ TABLET PO ONE ×2 (07:15→08:00)
[2020-10-31 07:19] LABS: Basophils % 0.4 % (0.0-0.8); Eosinophils # 0.2 10*3/uL (0.0-0.87); Eosinophils % 2.7 % (0.00-10.9); Hematocrit 42.6 VOL% (35.7-47.0); Hemoglobin 12.6 GM/DL (12.0-16.0); Immature Granulocytes % 0.3 %; Immature Granulocytes Absolute 0.03 #; Lymphocytes # 1.1 10*3/uL (1.4-4.0); Lymphocytes % 12.6 % (21.3-54.2); Mean Corpuscular HGB Conc 29.6 GM/DL (32-36); Mean Platelet Volume 9.2 FL (9.6-12.0); Monocytes % 8.5 % (1.7-12.7); Neutrophils % 75.5 % (38.7-73.9); Platelet Count 146 T/CUMM (130-400); Red Blood Count 4.53 MC/CUMM (3.8-5.5); Red Cell Distribution Width 13.2 % (9.3-17.3); White Blood Count 9.1 T/CUMM (4-12)
[2020-10-31] MEDS: GABAPENTIN 300 MG CAPSULE PO SCH (08:39)
[2020-10-31] MEDS: amLODIPine 5 MG TABLET PO SCH (08:39)
[2020-10-31] MEDS: ENOXAPARIN 30 MG/0.3 ML SYRINGE SUBCUT SCH (08:39)
[2020-10-31] MEDS: METOPROLOL TARTRATE 25 MG TABLET PO SCH (08:40)
[2020-10-31] MEDS: PANTOPRAZOLE 40 MG TABLET PO SCH (08:40)
[2020-10-31] MEDS: BUDESONIDE/FORMOTEROL 80-4.5 INHALER 6.9 GM INH SCH (08:41)
[2020-10-31] MEDS: ASPIRIN EC 81 MG TABLET PO SCH (08:41)
[2020-10-31] MEDS: MORPHINE 4 MG/1 ML VIAL IV PRN (09:51)
[2020-10-31 12:24] VITALS: BP 114/67
== END 2020-10-31 13:40 | disposition home or self-care (01) ==
LOC: EDBD → EDUNIT# → N.ED 22:53 → INTOOBSV 10-30 04:21 → N.EDINP 10-30 04:21 → N.TELES 10-30 11:54
PROVIDERS: ADMIT Internal Medicine; ATTEND Internal Medicine

== ENCOUNTER 2020-12-14 22:30 | Observation (INO) ==
[2020-12-14] MEDS ORDERED: SODIUM CHLORIDE 0.9% 1,000 ML IV STA (23:29)
[2020-12-14] MEDS ORDERED: methylPREDNISolone SOD SUC 125 MG/2 ML VIAL IV STA (23:47)
[2020-12-14] MEDS ORDERED: ALBUTEROL/IPRATROPIUM 3 ML NEB RESP TX STA (23:47)
[2020-12-14 23:57] LABS: Basophils # 0.1 10*3/uL (0.0-0.2); Basophils % 0.5 % (0.0-0.8); Eosinophils # 0.2 10*3/uL (0.0-0.87); Eosinophils % 2.3 % (0.00-10.9); Hematocrit 39.9 VOL% (35.7-47.0); Hemoglobin 12.2 GM/DL (12.0-16.0); Immature Granulocytes % 0.3 %; Immature Granulocytes Absolute 0.03 #; Lymphocytes # 1.1 10*3/uL (1.4-4.0); Lymphocytes % 11.8 % (21.3-54.2); Mean Corpuscular HGB Conc 30.6 GM/DL (32-36); Mean Corpuscular Volume 89.3 FL (87-102); Mean Platelet Volume 9.4 FL (9.6-12.0); Monocytes % 7.8 % (1.7-12.7); Neutrophils % 77.3 % (38.7-73.9); Platelet Count 136 T/CUMM (130-400); Red Blood Count 4.47 MC/CUMM (3.8-5.5); Red Cell Distribution Width 14.7 % (9.3-17.3); White Blood Count 9.3 T/CUMM (4-12)
[2020-12-15 00:30] LABS: Albumin 3.2 G/DL (3.4-5.0); Bilirubin,Total 0.7 MG/DL (0.2-1.0); Calcium 8.8 MG/DL (8.5-10.1); Osmolality,Calculated 288.7 MOS/KG (273-304); Potassium 3.1 MMOL/L (3.5-5.1); Total Protein 6.4 G/DL (5.0-7.5)
[2020-12-15] MEDS ORDERED: POTASSIUM CHLORIDE 20 MEQ/15 ML UDCUP PO ONE (00:36)
[2020-12-15] MEDS ORDERED: NICOTINE 21 MG/24 HR PATCH TRANSDERM PRN (00:46)
[2020-12-15] MEDS ORDERED: hydrALAZINE 20 MG/1 ML VIAL IV PRN (00:46)
[2020-12-15] MEDS ORDERED: MORPHINE 4 MG/1 ML VIAL IV PRN (00:46)
[2020-12-15] MEDS ORDERED: ONDANSETRON 4 MG/2 ML VIAL IV PRN (00:46)
[2020-12-15] MEDS ORDERED: guaiFENesin/DM ER 600-30 MG TABLET PO PRN (00:46)
[2020-12-15] MEDS ORDERED: GLUCAGON 1 MG VIAL IM PRN (00:46)
[2020-12-15] MEDS ORDERED: DEXTROSE 50% 25 GM/50 ML VIAL IV PRN ×2 (00:46→14:24)
[2020-12-15] MEDS: ALBUTEROL/IPRATROPIUM 3 ML NEB RESP TX SCH ×4 (01:11→19:00)
[2020-12-15] MEDS: ENOXAPARIN 40 MG/0.4 ML SYRINGE SUBCUT SCH (01:18)
[2020-12-15 04:46] LABS: Calcium 8.5 MG/DL (8.5-10.1); Osmolality,Calculated 289.8 MOS/KG (273-304); Potassium 4.2 MMOL/L (3.5-5.1)
[2020-12-15] MEDS: ASPIRIN EC 81 MG TABLET PO SCH (09:49)
[2020-12-15] MEDS: LEVOTHYROXINE 50 MCG TABLET PO SCH (09:50)
[2020-12-15] MEDS: METOPROLOL TARTRATE 25 MG TABLET PO SCH ×2 (09:50→22:23)
[2020-12-15] MEDS: amLODIPine 5 MG TABLET PO SCH (09:50)
[2020-12-15] MEDS: ACETAMINOPHEN 325 MG TABLET PO PRN ×2 (09:52→18:20)
[2020-12-15] MEDS: BUDESONIDE/FORMOTEROL 80-4.5 INHALER 6.9 GM INH SCH ×2 (09:56→22:26)
[2020-12-15] MEDS: methylPREDNISolone SOD SUC 40 MG/1 ML VIAL IV SCH (12:23)
[2020-12-15] MEDS ORDERED: MONTELUKAST 10 MG TABLET PO SCH (21:00)
[2020-12-16] MEDS: methylPREDNISolone SOD SUC 40 MG/1 ML VIAL IV SCH (00:16)
[2020-12-16] MEDS: ENOXAPARIN 40 MG/0.4 ML SYRINGE SUBCUT SCH (00:16)
[2020-12-16] MEDS: ALBUTEROL/IPRATROPIUM 3 ML NEB RESP TX SCH ×2 (00:31→07:29)
[2020-12-16] MEDS: ACETAMINOPHEN 325 MG TABLET PO PRN (05:43)
[2020-12-16 06:02] LABS: Calcium 9.4 MG/DL (8.5-10.1); Osmolality,Calculated 287.3 MOS/KG (273-304); Potassium 4.3 MMOL/L (3.5-5.1)
[2020-12-16 06:53] LABS: Basophils % 0.1 % (0.0-0.8); Hematocrit 38.7 VOL% (35.7-47.0); Hemoglobin 11.7 GM/DL (12.0-16.0); Immature Granulocytes % 0.6 %; Immature Granulocytes Absolute 0.05 #; Lymphocytes # 0.7 10*3/uL (1.4-4.0); Mean Corpuscular HGB Conc 30.2 GM/DL (32-36); Mean Corpuscular Volume 89.2 FL (87-102); Mean Platelet Volume 9.7 FL (9.6-12.0); Monocytes % 1.3 % (1.7-12.7); Platelet Count 145 T/CUMM (130-400); Red Blood Count 4.34 MC/CUMM (3.8-5.5); Red Cell Distribution Width 14.3 % (9.3-17.3); White Blood Count 8.9 T/CUMM (4-12)
[2020-12-16 07:10] LABS: Hypochromasia 1+; Microcytosis 1+; Platelet Estimate Adequate
[2020-12-16] MEDS: METOPROLOL TARTRATE 25 MG TABLET PO SCH (08:46)
[2020-12-16] MEDS: LEVOTHYROXINE 50 MCG TABLET PO SCH (08:46)
[2020-12-16] MEDS: amLODIPine 5 MG TABLET PO SCH (08:46)
[2020-12-16] MEDS: ASPIRIN EC 81 MG TABLET PO SCH (08:46)
[2020-12-16] MEDS: BUDESONIDE/FORMOTEROL 80-4.5 INHALER 6.9 GM INH SCH (08:47)
[2020-12-16 12:29] VITALS: BP 148/87
== END 2020-12-16 13:25 | disposition home or self-care (01) ==
LOC: EDUNIT# → EDBD → N.EDINP 22:30 → N.ED 22:30 → N.TELEN 12-15 02:08
PROVIDERS: ADMIT Hospitalist; ATTEND Hospitalist

== ENCOUNTER 2020-12-22 04:09 | Inpatient (IN) ==
[2020-12-22 04:27] LABS: ABG Base Excess 1.5 MMOL/L (-2.5-2.5); ABG HCO3 25.8 MMOL/L (20-26); ABG Oxygen Saturation 99.6 % (95-100); ABG TCO2 31.7 MMOL/L (23-27)
[2020-12-22] MEDS ORDERED: VECURONIUM 10 MG VIAL IV ONE ×2 (04:27→04:33)
[2020-12-22] MEDS ORDERED: ETOMIDATE 20 MG/10 ML VIAL IV ONE ×2 (04:27→04:33)
[2020-12-22 04:30] LABS: ABG PCO2 97.9 MM HG (35-48); ABG PH 7.155 (7.35-7.45)
[2020-12-22] MEDS ORDERED: methylPREDNISolone SOD SUC 125 MG/2 ML VIAL IV STA (04:40)
[2020-12-22] MEDS ORDERED: PIPERACILLIN/TAZOBACTAM 3,375 MG in SODIUM CHLORIDE 0.9% 100 ML IV STA (04:40)
[2020-12-22] MEDS ORDERED: SODIUM CHLORIDE 0.9% 500 ML IV STA (04:40)
[2020-12-22] MEDS ORDERED: ONDANSETRON 4 MG/2 ML VIAL IV STA (04:40)
[2020-12-22 05:14] LABS: Bilirubin,Urine Negative (Negative); Blood, Urine Small mg/dL (Negative); Glucose,Urine (UA) Negative (Negative); Ketones,Urine Negative (Negative); Mucus,Urine Occasional /LPF (Occasional); Nitrite,Urine Negative (Negative); Protein,Urine 100 MG/DL; RBC,Urine 4 /HPF (0-4); Squamous Epithelial Cell,Urine Occasional /HPF (0-10); Urine Appearance CLEAR (Clear); Urine Color Yellow (Yellow); Urine Specific Gravity 1.013 (1.001-1.035); WBC,Urine 1 /HPF (0-6)
[2020-12-22 05:28] LABS: Barbiturates Screen,Urine Negative (Negative); Benzodiazepines Screen,Urine Negative (Negative); Cannabinoid Screen,Urine Positive (Negative); Opiate Screen,Urine Positive (Negative); Phencyclidine Screen,Urine Negative (Negative)
[2020-12-22 05:29] LABS: INR 1.1; PT Patient Result 11.4 SECS (9.8-11.9)
[2020-12-22 05:32] LABS: Alanine Aminotransferase 177 U/L (13-56); Albumin 3.4 G/DL (3.4-5.0); Alkaline Phosphatase 128 U/L (45-117); Aspartate Amino Transferase 378 U/L (0-37); Blood Urea Nitrogen 22 MG/DL (7-18); Calcium 8.4 MG/DL (8.5-10.1); Carbon Dioxide 30 MMOL/L (21-32); Estimated Glom Filtration Rate 27 ML/MIN; Glucose 104 MG/DL (74-106); Osmolality,Calculated 288.8 MOS/KG (273-304); Potassium 2.8 MMOL/L (3.5-5.1); Sodium 144 MMOL/L (136-145); Total Protein 6.8 G/DL (5.0-7.5)
[2020-12-22 05:34] LABS: Basophils % 0.3 % (0.0-0.8); Hematocrit 40.2 VOL% (35.7-47.0); Hemoglobin 11.9 GM/DL (12.0-16.0); Immature Granulocytes % 0.6 %; Immature Granulocytes Absolute 0.07 #; Lymphocytes # 0.3 10*3/uL (1.4-4.0); Lymphocytes % 2.6 % (21.3-54.2); Mean Corpuscular HGB Conc 29.6 GM/DL (32-36); Mean Corpuscular Volume 92.6 FL (87-102); Mean Platelet Volume 10.1 FL (9.6-12.0); Monocytes % 5.4 % (1.7-12.7); Neutrophils % 91.1 % (38.7-73.9); Platelet Count 115 T/CUMM (130-400); Red Blood Count 4.34 MC/CUMM (3.8-5.5); Red Cell Distribution Width 14.4 % (9.3-17.3); White Blood Count 11.2 T/CUMM (4-12)
[2020-12-22 05:36] LABS: Allen Test Positive; Pt O2 Delivery Device Ventilator
[2020-12-22 05:37] LABS: ABG Base Excess 2.4 MMOL/L (-2.5-2.5); ABG HCO3 26.5 MMOL/L (20-26); ABG Oxygen Saturation 99.7 % (95-100); ABG PCO2 55.5 MM HG (35-48); ABG PH 7.332 (7.35-7.45); ABG TCO2 26.5 MMOL/L (23-27)
[2020-12-22 05:39] LABS: Band Neutrophils 2 % (0-10); Hypochromasia Slight; Lymphocytes 1 % (20-55); Microcytosis Slight; Platelet Estimate Decreased; Segmented Neutrophils 94 % (50-85); Total Cells Counted 100
[2020-12-22 05:46] LABS: Lactic Acid 2.4 MMOL/L (0.4-2.0)
[2020-12-22] MEDS ORDERED: SODIUM CHLORIDE 0.9% 1,000 ML IV STA (05:49)
[2020-12-22] MEDS ORDERED: NICOTINE 21 MG/24 HR PATCH TRANSDERM PRN (05:58)
[2020-12-22] MEDS ORDERED: ALBUTEROL 2.5 MG/3 ML NEB RESP TX PRN (05:58)
[2020-12-22] MEDS ORDERED: ONDANSETRON 4 MG/2 ML VIAL IV PRN (05:58)
[2020-12-22] MEDS ORDERED: ACETAMINOPHEN 325 MG TABLET PO PRN (05:58)
[2020-12-22] MEDS ORDERED: hydrALAZINE 20 MG/1 ML VIAL IV PRN (05:58)
[2020-12-22 06:03] LABS: Acetaminophen < 2.0 UG/ML (10-30); Salicylate < 2.8 MG/DL (2.8-20)
[2020-12-22] MEDS ORDERED: GLUCAGON 1 MG VIAL IM PRN (06:08)
[2020-12-22] MEDS ORDERED: DEXTROSE 50% 25 GM/50 ML VIAL IV PRN (06:08)
[2020-12-22] MEDS: ALBUTEROL/IPRATROPIUM 3 ML NEB RESP TX SCH ×3 (07:09→19:29)
[2020-12-22] MEDS ORDERED: INSULIN REGULAR 100 UNIT/ML SUBCUT SCH (07:30)
[2020-12-22] MEDS: SODIUM CHLOR 0.45% KCL 20 MEQ 20 MEQ/1,000 ML BAG IV SCH ×2 (08:10→21:39)
[2020-12-22] MEDS: POTASSIUM CHLORIDE 20 MEQ TABLET PO PRN ×3 (08:15→10:20)
[2020-12-22] MEDS: POTASSIUM CHLORIDE 20 MEQ/15 ML UDCUP PER TUBE PRN ×4 (08:15→11:45)
[2020-12-22 08:23] LABS: ABG Base Excess 0.2 MMOL/L (-2.5-2.5); ABG HCO3 24.6 MMOL/L (20-26); ABG PCO2 52.4 MM HG (35-48); ABG PH 7.324 (7.35-7.45); ABG TCO2 24.1 MMOL/L (23-27)
[2020-12-22] MEDS: INSULIN REGULAR 100 UNIT/ML SUBCUT SCH ×2 (11:29→18:18)
[2020-12-22] MEDS ORDERED: LACTATED RINGERS 500 ML IV ONE ×2 (11:35→12:34)
[2020-12-22] MEDS ORDERED: SODIUM CHLORIDE 0.9% 500 ML IV ONE (11:36)
[2020-12-22] MEDS: LORazepam 2 MG/1 ML VIAL IV PRN ×2 (12:12→21:47)
[2020-12-22] MEDS ORDERED: PHENYLEPHRINE DRIP 40 MG/250 ML PREMIX IV ONE (12:52)
[2020-12-22] MEDS ORDERED: PHENYLEPHRINE DRIP 40 MG/250 ML PREMIX IV PRN (13:05)
[2020-12-22 14:07] LABS: Bilirubin,Total 1.1 MG/DL (0.2-1.0); Calcium 8.2 MG/DL (8.5-10.1); Osmolality,Calculated 298.4 MOS/KG (273-304); Potassium 4.4 MMOL/L (3.5-5.1); Total Protein 5.7 G/DL (6.4-8.2)
[2020-12-22 14:10] LABS: CKMB % 11.4 %; Calcium 8.4 MG/DL (8.5-10.1); Osmolality,Calculated 301.3 MOS/KG (273-304); Potassium 4.4 MMOL/L (3.5-5.1)
[2020-12-22 14:11] LABS: Troponin I 0.906 NG/ML (0.00-0.045)
[2020-12-22] MEDS ORDERED: MAGNESIUM SULF RIDER 2 GM in PREMIX 1 EACH IV ONE (14:15)
[2020-12-22] MEDS: PIPERACILLIN/TAZOBACTAM 3,375 MG in SODIUM CHLORIDE 0.9% 100 ML IV SCH ×2 (15:40→21:27)
[2020-12-22] MEDS: methylPREDNISolone SOD SUC 40 MG/1 ML VIAL IV SCH (16:15)
[2020-12-23] MEDS: INSULIN REGULAR 100 UNIT/ML SUBCUT SCH ×4 (00:04→19:17)
[2020-12-23] MEDS: ALBUTEROL/IPRATROPIUM 3 ML NEB RESP TX SCH ×4 (00:37→19:30)
[2020-12-23] MEDS ORDERED: MIDAZOLAM 100 MG in SODIUM CHLORIDE 0.9% 80 ML IV PRN (01:41)
[2020-12-23] MEDS ORDERED: LORazepam 2 MG/1 ML VIAL ONE (01:44)
[2020-12-23] MEDS: LORazepam 2 MG/1 ML VIAL IV PRN ×4 (01:48→22:15)
[2020-12-23 04:33] LABS: Allen Test Positive; Pt O2 Delivery Device Ventilator
[2020-12-23 04:34] LABS: ABG Base Excess -0.7 MMOL/L (-2.5-2.5); ABG HCO3 23.8 MMOL/L (20-26); ABG PCO2 45.8 MM HG (35-48); ABG PH 7.348 (7.35-7.45); ABG TCO2 22.9 MMOL/L (23-27)
[2020-12-23 05:23] LABS: Basophils % 0.1 % (0.0-0.8); Hemoglobin 11.6 GM/DL (12.0-16.0); Immature Granulocytes % 0.7 %; Immature Granulocytes Absolute 0.06 #; Lymphocytes # 0.8 10*3/uL (1.4-4.0); Lymphocytes % 8.2 % (21.3-54.2); Mean Corpuscular HGB Conc 30.5 GM/DL (32-36); Mean Platelet Volume 10.5 FL (9.6-12.0); Monocytes % 4.6 % (1.7-12.7); Neutrophils % 86.4 % (38.7-73.9); Red Blood Count 4.27 MC/CUMM (3.8-5.5); White Blood Count 9.1 T/CUMM (4-12)
[2020-12-23 05:27] LABS: Platelet Count 75 T/CUMM (130-400)
[2020-12-23 05:41] LABS: Hypochromasia 1+; Microcytosis 1+; Ovalocytes Slight
[2020-12-23 05:43] LABS: Platelet Estimate Decreased
[2020-12-23] MEDS: methylPREDNISolone SOD SUC 40 MG/1 ML VIAL IV SCH ×2 (05:50→16:51)
[2020-12-23] MEDS: PIPERACILLIN/TAZOBACTAM 3,375 MG in SODIUM CHLORIDE 0.9% 100 ML IV SCH (05:50)
[2020-12-23 05:52] LABS: Albumin 2.9 G/DL (3.4-5.0); Bilirubin,Total 0.4 MG/DL (0.2-1.0); Calcium 9.1 MG/DL (8.5-10.1); Osmolality,Calculated 292.8 MOS/KG (273-304); Potassium 4.4 MMOL/L (3.5-5.1); Total Protein 6.3 G/DL (6.4-8.2)
[2020-12-23] MEDS: FAMOTIDINE 20 MG/2 ML VIAL IV SCH ×2 (08:33→22:34)
[2020-12-23] MEDS: CLINDAMYCIN INJ 600 MG in PREMIX 1 EACH IV SCH ×2 (08:33→16:50)
[2020-12-23] MEDS: METOPROLOL TARTRATE 25 MG TABLET PO SCH ×2 (14:22→21:50)
[2020-12-23] MEDS ORDERED: LORazepam 1 MG TABLET PO PRN (16:16)
[2020-12-23] MEDS: amLODIPine 5 MG TABLET PO SCH (16:50)
[2020-12-23] MEDS: GABAPENTIN 300 MG CAPSULE PO SCH ×2 (16:50→21:50)
[2020-12-23] MEDS: BUDESONIDE/FORMOTEROL 80-4.5 INHALER 6.9 GM INH SCH (21:50)
[2020-12-23] MEDS: MONTELUKAST 10 MG TABLET PO SCH (21:50)
[2020-12-24] MEDS: ALBUTEROL/IPRATROPIUM 3 ML NEB RESP TX SCH ×4 (00:50→19:39)
[2020-12-24] MEDS: INSULIN REGULAR 100 UNIT/ML SUBCUT SCH ×5 (01:26→21:49)
[2020-12-24] MEDS: CLINDAMYCIN INJ 600 MG in PREMIX 1 EACH IV SCH ×4 (01:30→23:44)
[2020-12-24] MEDS: LORazepam 2 MG/1 ML VIAL IV PRN ×2 (02:25→21:43)
[2020-12-24] MEDS ORDERED: HALOPERIDOL 5 MG/ML AMP IV ONE (03:37)
[2020-12-24] MEDS ORDERED: HALOPERIDOL 5 MG/ML AMP ONE (03:43)
[2020-12-24] MEDS: methylPREDNISolone SOD SUC 40 MG/1 ML VIAL IV SCH ×2 (04:12→17:50)
[2020-12-24] MEDS ORDERED: MORPHINE 4 MG/1 ML VIAL IV ONE ×2 (05:13→14:21)
[2020-12-24] MEDS ORDERED: MORPHINE 4 MG/1 ML VIAL ONE (05:16)
[2020-12-24 05:44] LABS: Hematocrit 41.4 VOL% (35.7-47.0); Hemoglobin 12.8 GM/DL (12.0-16.0); Immature Granulocytes % 0.8 %; Lymphocytes # 1.4 10*3/uL (1.4-4.0); Lymphocytes % 10.9 % (21.3-54.2); Mean Corpuscular HGB Conc 30.9 GM/DL (32-36); Mean Corpuscular Volume 86.3 FL (87-102); Mean Platelet Volume 10.3 FL (9.6-12.0); Monocytes % 7.7 % (1.7-12.7); Neutrophils % 80.6 % (38.7-73.9); Platelet Count 118 T/CUMM (130-400); Red Cell Distribution Width 14.4 % (9.3-17.3); White Blood Count 12.4 T/CUMM (4-12)
[2020-12-24 05:55] LABS: Albumin 3.8 G/DL (3.4-5.0); Bilirubin,Total 0.9 MG/DL (0.2-1.0); Calcium 10.2 MG/DL (8.5-10.1); Osmolality,Calculated 280.4 MOS/KG (273-304); Potassium 3.1 MMOL/L (3.5-5.1); Total Protein 7.7 G/DL (6.4-8.2)
[2020-12-24 05:58] LABS: Albumin 3.9 G/DL (3.4-5.0); Calcium 10.1 MG/DL (8.5-10.1); Osmolality,Calculated 284.1 MOS/KG (273-304); Total Protein 7.8 G/DL (6.4-8.2)
[2020-12-24 06:11] LABS: Hypochromasia 1+; Microcytosis 1+
[2020-12-24 06:12] LABS: Ovalocytes Slight; Target Cells Slight
[2020-12-24 06:13] LABS: Platelet Estimate Adequate
[2020-12-24] MEDS ORDERED: MAGNESIUM SULF RIDER 4 GM in PREMIX 1 EACH IV PRN (06:26)
[2020-12-24] MEDS ORDERED: MAGNESIUM SULF RIDER 50 ML IV ONE (06:27)
[2020-12-24] MEDS: MAGNESIUM SULF RIDER 2 GM in PREMIX 1 EACH IV PRN (06:30)
[2020-12-24] MEDS ORDERED: POTASSIUM CHLORIDE 20 MEQ/15 ML UDCUP PO ONE (06:42)
[2020-12-24 07:44] LABS: ABG Base Excess 8.4 MMOL/L (-2.5-2.5); ABG HCO3 32.2 MMOL/L (20-26); ABG Oxygen Saturation 98.2 % (95-100); ABG PCO2 43.9 MM HG (35-48); ABG PH 7.484 (7.35-7.45); ABG TCO2 28.6 MMOL/L (23-27)
[2020-12-24] MEDS ORDERED: LEVOTHYROXINE 50 MCG TABLET PO SCH (09:00)
[2020-12-24] MEDS: GABAPENTIN 300 MG CAPSULE PO SCH ×3 (09:32→21:36)
[2020-12-24] MEDS: FAMOTIDINE 20 MG/2 ML VIAL IV SCH ×2 (09:32→21:40)
[2020-12-24] MEDS: METOPROLOL TARTRATE 25 MG TABLET PO SCH ×2 (09:32→21:36)
[2020-12-24] MEDS: amLODIPine 5 MG TABLET PO SCH (09:32)
[2020-12-24] MEDS: ASPIRIN EC 81 MG TABLET PO SCH (09:32)
[2020-12-24] MEDS: BUDESONIDE/FORMOTEROL 80-4.5 INHALER 6.9 GM INH SCH ×2 (09:33→21:36)
[2020-12-24] MEDS: POTASSIUM CHLORIDE 20 MEQ TABLET PO PRN ×3 (16:32→23:35)
[2020-12-24] MEDS: MONTELUKAST 10 MG TABLET PO SCH (21:36)
[2020-12-25] MEDS ORDERED: MORPHINE 4 MG/1 ML VIAL IV ONE (01:31)
[2020-12-25] MEDS: LORazepam 2 MG/1 ML VIAL IV PRN (01:48)
[2020-12-25] MEDS: ALBUTEROL/IPRATROPIUM 3 ML NEB RESP TX SCH ×4 (02:08→19:38)
[2020-12-25] MEDS: POTASSIUM CHLORIDE 20 MEQ TABLET PO PRN (04:03)
[2020-12-25] MEDS: methylPREDNISolone SOD SUC 40 MG/1 ML VIAL IV SCH ×2 (05:22→18:32)
[2020-12-25 05:56] LABS: Basophils % 0.2 % (0.0-0.8); Hematocrit 39.7 VOL% (35.7-47.0); Hemoglobin 12.7 GM/DL (12.0-16.0); Immature Granulocytes % 0.8 %; Immature Granulocytes Absolute 0.05 #; Lymphocytes # 0.4 10*3/uL (1.4-4.0); Lymphocytes % 6.9 % (21.3-54.2); Mean Corpuscular Volume 84.5 FL (87-102); Mean Platelet Volume 10.7 FL (9.6-12.0); Monocytes % 1.1 % (1.7-12.7); Platelet Count 120 T/CUMM (130-400); Red Cell Distribution Width 14.6 % (9.3-17.3); White Blood Count 6.2 T/CUMM (4-12)
[2020-12-25 06:14] LABS: Albumin 3.5 G/DL (3.4-5.0); Bilirubin,Total 0.7 MG/DL (0.2-1.0); Calcium 8.9 MG/DL (8.5-10.1); Potassium 3.9 MMOL/L (3.5-5.1); Total Protein 7.1 G/DL (6.4-8.2)
[2020-12-25 06:27] LABS: Hypochromasia 1+; Lymphocytes 9 % (20-55); Microcytosis 1+; Platelet Estimate Normal; Segmented Neutrophils 89 % (50-85); Total Cells Counted 100
[2020-12-25] MEDS: CLINDAMYCIN INJ 600 MG in PREMIX 1 EACH IV SCH ×3 (10:40→23:36)
[2020-12-25] MEDS: ASPIRIN EC 81 MG TABLET PO SCH (10:40)
[2020-12-25] MEDS: GABAPENTIN 300 MG CAPSULE PO SCH ×3 (10:40→21:01)
[2020-12-25] MEDS: ACETAMINOPHEN 325 MG TABLET PO PRN ×2 (10:41→21:00)
[2020-12-25] MEDS: METOPROLOL TARTRATE 25 MG TABLET PO SCH ×2 (10:41→21:01)
[2020-12-25] MEDS: amLODIPine 5 MG TABLET PO SCH (10:41)
[2020-12-25] MEDS: INSULIN REGULAR 100 UNIT/ML SUBCUT SCH ×3 (10:41→21:02)
[2020-12-25] MEDS: FAMOTIDINE 20 MG/2 ML VIAL IV SCH (10:42)
[2020-12-25] MEDS: BUDESONIDE/FORMOTEROL 80-4.5 INHALER 6.9 GM INH SCH ×2 (11:44→21:03)
[2020-12-25] MEDS ORDERED: POTASSIUM CHLORIDE 20 MEQ TABLET PO ONE (12:00)
[2020-12-25] MEDS: MONTELUKAST 10 MG TABLET PO SCH (21:01)
[2020-12-25] MEDS: FAMOTIDINE 20 MG TABLET PO SCH (21:01)
[2020-12-26] MEDS: ALBUTEROL/IPRATROPIUM 3 ML NEB RESP TX SCH ×4 (01:03→20:22)
[2020-12-26] MEDS: ACETAMINOPHEN 325 MG TABLET PO PRN ×2 (03:18→09:36)
[2020-12-26] MEDS: LEVOTHYROXINE 50 MCG TABLET PO SCH (05:36)
[2020-12-26] MEDS: methylPREDNISolone SOD SUC 40 MG/1 ML VIAL IV SCH (06:06)
[2020-12-26] MEDS: INSULIN REGULAR 100 UNIT/ML SUBCUT SCH ×4 (07:54→21:16)
[2020-12-26] MEDS: predniSONE 20 MG TABLET PO SCH (09:31)
[2020-12-26] MEDS: GABAPENTIN 300 MG CAPSULE PO SCH ×3 (09:31→21:17)
[2020-12-26] MEDS: METOPROLOL TARTRATE 25 MG TABLET PO SCH ×2 (09:31→21:17)
[2020-12-26] MEDS: AMOXICILLIN/CLAV 500 MG TABLET PO SCH ×2 (09:31→21:16)
[2020-12-26] MEDS: ASPIRIN EC 81 MG TABLET PO SCH (09:31)
[2020-12-26] MEDS: FAMOTIDINE 20 MG TABLET PO SCH ×2 (09:32→21:16)
[2020-12-26] MEDS: BUDESONIDE/FORMOTEROL 80-4.5 INHALER 6.9 GM INH SCH ×2 (09:32→21:17)
[2020-12-26] MEDS: amLODIPine 5 MG TABLET PO SCH (09:36)
[2020-12-26] MEDS ORDERED: hydrALAZINE 10 MG TABLET PO ONE (11:25)
[2020-12-26] MEDS: LORazepam 2 MG/1 ML VIAL IV PRN ×3 (15:40→21:58)
[2020-12-26] MEDS: MONTELUKAST 10 MG TABLET PO SCH (21:16)
[2020-12-27] MEDS: ALBUTEROL/IPRATROPIUM 3 ML NEB RESP TX SCH ×4 (01:04→19:30)
[2020-12-27] MEDS: LORazepam 2 MG/1 ML VIAL IV PRN ×6 (02:07→21:17)
[2020-12-27] MEDS: LEVOTHYROXINE 50 MCG TABLET PO SCH (06:12)
[2020-12-27] MEDS: GABAPENTIN 300 MG CAPSULE PO SCH ×3 (09:04→21:09)
[2020-12-27] MEDS: INSULIN REGULAR 100 UNIT/ML SUBCUT SCH ×5 (09:04→21:11)
[2020-12-27] MEDS: FAMOTIDINE 20 MG TABLET PO SCH ×2 (09:04→21:09)
[2020-12-27] MEDS: AMOXICILLIN/CLAV 500 MG TABLET PO SCH ×2 (09:04→21:09)
[2020-12-27] MEDS: amLODIPine 5 MG TABLET PO SCH (09:05)
[2020-12-27] MEDS: ASPIRIN EC 81 MG TABLET PO SCH (09:05)
[2020-12-27] MEDS: BUDESONIDE/FORMOTEROL 80-4.5 INHALER 6.9 GM INH SCH ×2 (09:05→21:12)
[2020-12-27] MEDS: predniSONE 20 MG TABLET PO SCH (09:05)
[2020-12-27] MEDS: METOPROLOL TARTRATE 25 MG TABLET PO SCH ×2 (09:05→21:09)
[2020-12-27] MEDS: SODIUM CHLORIDE 0.9% 1,000 ML IV SCH (15:00)
[2020-12-27 15:09] LABS: Basophils % 0.1 % (0.0-0.8); Eosinophils % 0.1 % (0.00-10.9); Hematocrit 43.3 VOL% (35.7-47.0); Hemoglobin 13.3 GM/DL (12.0-16.0); Immature Granulocytes % 0.6 %; Immature Granulocytes Absolute 0.06 #; Lymphocytes # 0.7 10*3/uL (1.4-4.0); Lymphocytes % 6.7 % (21.3-54.2); Mean Corpuscular HGB Conc 30.7 GM/DL (32-36); Mean Corpuscular Volume 87.3 FL (87-102); Mean Platelet Volume 9.7 FL (9.6-12.0); Monocytes % 1.6 % (1.7-12.7); Neutrophils % 90.9 % (38.7-73.9); Platelet Count 182 T/CUMM (130-400); Red Blood Count 4.96 MC/CUMM (3.8-5.5); Red Cell Distribution Width 14.7 % (9.3-17.3); White Blood Count 10.3 T/CUMM (4-12)
[2020-12-27 15:16] LABS: Troponin I 0.024 NG/ML (0.00-0.045)
[2020-12-27 15:19] LABS: Calcium 8.8 MG/DL (8.5-10.1); Potassium 3.8 MMOL/L (3.5-5.1)
[2020-12-27 15:29] LABS: Thyroid Stimulating Hormone 1.55 uIU/ml (0.358-3.74)
[2020-12-27 16:06] LABS: Lymphocytes 6 % (20-55); Segmented Neutrophils 92 % (50-85); Total Cells Counted 100
[2020-12-27 16:08] LABS: Platelet Estimate Adequate
[2020-12-27 16:09] LABS: Anisocytosis Slight
[2020-12-27] MEDS: MONTELUKAST 10 MG TABLET PO SCH (21:09)
[2020-12-27] MEDS: INSULIN GLARGINE 100 UNIT/ML SUBCUT SCH (21:11)
[2020-12-28] MEDS: LORazepam 2 MG/1 ML VIAL IV PRN ×5 (01:15→20:41)
[2020-12-28] MEDS: ALBUTEROL/IPRATROPIUM 3 ML NEB RESP TX SCH ×4 (01:43→19:15)
[2020-12-28] MEDS: SODIUM CHLORIDE 0.9% 1,000 ML IV SCH ×2 (05:15→20:37)
[2020-12-28] MEDS: LEVOTHYROXINE 50 MCG TABLET PO SCH (06:15)
[2020-12-28] MEDS ORDERED: LORazepam 1 MG TABLET PO PRN (07:59)
[2020-12-28] MEDS: INSULIN REGULAR 100 UNIT/ML SUBCUT SCH ×4 (08:00→20:44)
[2020-12-28] MEDS: ASPIRIN EC 81 MG TABLET PO SCH (08:33)
[2020-12-28] MEDS: GABAPENTIN 300 MG CAPSULE PO SCH ×3 (08:33→20:36)
[2020-12-28] MEDS: FAMOTIDINE 20 MG TABLET PO SCH ×2 (08:33→20:36)
[2020-12-28] MEDS: METOPROLOL TARTRATE 25 MG TABLET PO SCH ×2 (08:33→20:36)
[2020-12-28] MEDS: predniSONE 20 MG TABLET PO SCH (08:33)
[2020-12-28] MEDS: amLODIPine 5 MG TABLET PO SCH (08:33)
[2020-12-28] MEDS: AMOXICILLIN/CLAV 500 MG TABLET PO SCH ×2 (08:34→20:36)
[2020-12-28] MEDS: BUDESONIDE/FORMOTEROL 80-4.5 INHALER 6.9 GM INH SCH ×2 (08:34→20:45)
[2020-12-28 09:05] LABS: Basophils % 0.1 % (0.0-0.8); Eosinophils # 0.2 10*3/uL (0.0-0.87); Eosinophils % 1.9 % (0.00-10.9); Hematocrit 40.8 VOL% (35.7-47.0); Hemoglobin 13.1 GM/DL (12.0-16.0); Immature Granulocytes % 0.8 %; Immature Granulocytes Absolute 0.08 #; Lymphocytes # 1.9 10*3/uL (1.4-4.0); Lymphocytes % 18.3 % (21.3-54.2); Mean Corpuscular HGB Conc 32.1 GM/DL (32-36); Mean Corpuscular Volume 84.6 FL (87-102); Mean Platelet Volume 9.7 FL (9.6-12.0); Monocytes % 8.4 % (1.7-12.7); Neutrophils % 70.5 % (38.7-73.9); Platelet Count 166 T/CUMM (130-400); Red Blood Count 4.82 MC/CUMM (3.8-5.5); Red Cell Distribution Width 14.7 % (9.3-17.3); White Blood Count 10.6 T/CUMM (4-12)
[2020-12-28 09:26] LABS: Calcium 8.5 MG/DL (8.5-10.1); Potassium 3.1 MMOL/L (3.5-5.1)
[2020-12-28] MEDS ORDERED: POTASSIUM CHLORIDE 20 MEQ TABLET PO ONE (09:30)
[2020-12-28] MEDS: MONTELUKAST 10 MG TABLET PO SCH (20:36)
[2020-12-28] MEDS: INSULIN GLARGINE 100 UNIT/ML SUBCUT SCH (20:44)
[2020-12-29] MEDS: ALBUTEROL/IPRATROPIUM 3 ML NEB RESP TX SCH ×4 (00:19→19:48)
[2020-12-29] MEDS: LORazepam 2 MG/1 ML VIAL IV PRN ×6 (00:26→21:22)
[2020-12-29 06:16] LABS: Calcium 8.8 MG/DL (8.5-10.1); Osmolality,Calculated 279.4 MOS/KG (273-304)
[2020-12-29] MEDS: LEVOTHYROXINE 50 MCG TABLET PO SCH (07:07)
[2020-12-29] MEDS: POTASSIUM CHLORIDE 20 MEQ TABLET PO SCH ×3 (07:51→21:22)
[2020-12-29] MEDS: INSULIN REGULAR 100 UNIT/ML SUBCUT SCH ×4 (07:52→22:30)
[2020-12-29] MEDS: BUDESONIDE/FORMOTEROL 80-4.5 INHALER 6.9 GM INH SCH ×3 (08:52→21:22)
[2020-12-29] MEDS: GABAPENTIN 300 MG CAPSULE PO SCH ×3 (08:52→21:22)
[2020-12-29] MEDS: ASPIRIN EC 81 MG TABLET PO SCH (08:52)
[2020-12-29] MEDS: METOPROLOL TARTRATE 25 MG TABLET PO SCH ×2 (08:52→21:22)
[2020-12-29] MEDS: amLODIPine 5 MG TABLET PO SCH (08:52)
[2020-12-29] MEDS: FAMOTIDINE 20 MG TABLET PO SCH ×2 (08:52→21:22)
[2020-12-29] MEDS: predniSONE 20 MG TABLET PO SCH (08:53)
[2020-12-29] MEDS: AMOXICILLIN/CLAV 500 MG TABLET PO SCH ×2 (08:53→21:22)
[2020-12-29] MEDS: SODIUM CHLORIDE 0.9% 1,000 ML IV SCH (09:57)
[2020-12-29] MEDS ORDERED: PRAMOXINE/HYDROCORTISONE RECTAL FOAM 10 GM CAN RECTAL PRN (10:08)
[2020-12-29] MEDS: MONTELUKAST 10 MG TABLET PO SCH (21:22)
[2020-12-29] MEDS: INSULIN GLARGINE 100 UNIT/ML SUBCUT SCH (21:22)
[2020-12-30] MEDS: LORazepam 2 MG/1 ML VIAL IV PRN ×5 (00:57→15:40)
[2020-12-30] MEDS: ALBUTEROL/IPRATROPIUM 3 ML NEB RESP TX SCH ×4 (01:12→19:50)
[2020-12-30] MEDS: LEVOTHYROXINE 50 MCG TABLET PO SCH (06:15)
[2020-12-30 08:18] LABS: Calcium 8.6 MG/DL (8.5-10.1); Osmolality,Calculated 275.7 MOS/KG (273-304); Potassium 3.8 MMOL/L (3.5-5.1)
[2020-12-30] MEDS: POTASSIUM CHLORIDE 20 MEQ TABLET PO SCH ×2 (08:21→21:30)
[2020-12-30] MEDS: FAMOTIDINE 20 MG TABLET PO SCH ×2 (08:22→21:31)
[2020-12-30] MEDS: POTASSIUM CHLORIDE 20 MEQ TABLET PO PRN (08:22)
[2020-12-30] MEDS: GABAPENTIN 300 MG CAPSULE PO SCH ×3 (08:22→21:30)
[2020-12-30] MEDS: predniSONE 20 MG TABLET PO SCH (08:22)
[2020-12-30] MEDS: amLODIPine 5 MG TABLET PO SCH (08:23)
[2020-12-30] MEDS: METOPROLOL TARTRATE 25 MG TABLET PO SCH ×2 (08:23→21:31)
[2020-12-30] MEDS: ASPIRIN EC 81 MG TABLET PO SCH (08:23)
[2020-12-30] MEDS: INSULIN REGULAR 100 UNIT/ML SUBCUT SCH ×4 (08:27→20:29)
[2020-12-30] MEDS: AMOXICILLIN/CLAV 500 MG TABLET PO SCH ×2 (08:30→21:30)
[2020-12-30] MEDS: BUDESONIDE/FORMOTEROL 80-4.5 INHALER 6.9 GM INH SCH ×2 (08:31→21:31)
[2020-12-30 10:55] LABS: Basophils % 0.3 % (0.0-0.8); Eosinophils # 0.4 10*3/uL (0.0-0.87); Eosinophils % 2.8 % (0.00-10.9); Hematocrit 40.5 VOL% (35.7-47.0); Hemoglobin 12.8 GM/DL (12.0-16.0); Immature Granulocytes % 1.2 %; Immature Granulocytes Absolute 0.16 #; Lymphocytes # 1.1 10*3/uL (1.4-4.0); Lymphocytes % 7.8 % (21.3-54.2); Mean Corpuscular HGB Conc 31.6 GM/DL (32-36); Mean Platelet Volume 9.1 FL (9.6-12.0); Monocytes % 5.2 % (1.7-12.7); Neutrophils % 82.7 % (38.7-73.9); Platelet Count 193 T/CUMM (130-400); Red Blood Count 4.71 MC/CUMM (3.8-5.5); Red Cell Distribution Width 15.1 % (9.3-17.3); White Blood Count 13.9 T/CUMM (4-12)
[2020-12-30] MEDS: MAGNESIUM SULF RIDER 2 GM in PREMIX 1 EACH IV PRN (12:04)
[2020-12-30] MEDS: ACETAMINOPHEN 325 MG TABLET PO PRN ×2 (17:11→23:59)
[2020-12-30] MEDS: LORazepam 1 MG TABLET PO PRN (17:11)
[2020-12-30] MEDS: MONTELUKAST 10 MG TABLET PO SCH (21:30)
[2020-12-30] MEDS: INSULIN GLARGINE 100 UNIT/ML SUBCUT SCH (21:31)
[2020-12-31] MEDS: ALBUTEROL/IPRATROPIUM 3 ML NEB RESP TX SCH ×3 (01:00→12:27)
[2020-12-31] MEDS: LORazepam 1 MG TABLET PO PRN ×2 (01:12→08:40)
[2020-12-31 05:21] LABS: Basophils % 0.2 % (0.0-0.8); Eosinophils # 0.2 10*3/uL (0.0-0.87); Eosinophils % 1.7 % (0.00-10.9); Hematocrit 40.2 VOL% (35.7-47.0); Hemoglobin 12.5 GM/DL (12.0-16.0); Immature Granulocytes % 1.2 %; Immature Granulocytes Absolute 0.15 #; Lymphocytes # 2.5 10*3/uL (1.4-4.0); Lymphocytes % 21.1 % (21.3-54.2); Mean Corpuscular HGB Conc 31.1 GM/DL (32-36); Mean Platelet Volume 9.4 FL (9.6-12.0); Monocytes % 8.4 % (1.7-12.7); Neutrophils % 67.4 % (38.7-73.9); Platelet Count 204 T/CUMM (130-400); Red Blood Count 4.62 MC/CUMM (3.8-5.5); Red Cell Distribution Width 15.2 % (9.3-17.3)
[2020-12-31 05:41] LABS: Osmolality,Calculated 276.7 MOS/KG (273-304); Potassium 3.9 MMOL/L (3.5-5.1)
[2020-12-31] MEDS: LEVOTHYROXINE 50 MCG TABLET PO SCH (05:57)
[2020-12-31] MEDS: amLODIPine 5 MG TABLET PO SCH (08:40)
[2020-12-31] MEDS: predniSONE 20 MG TABLET PO SCH (08:40)
[2020-12-31] MEDS: FAMOTIDINE 20 MG TABLET PO SCH (08:40)
[2020-12-31] MEDS: METOPROLOL TARTRATE 25 MG TABLET PO SCH (08:40)
[2020-12-31] MEDS: GABAPENTIN 300 MG CAPSULE PO SCH (08:40)
[2020-12-31] MEDS: ASPIRIN EC 81 MG TABLET PO SCH (08:40)
[2020-12-31] MEDS: POTASSIUM CHLORIDE 20 MEQ TABLET PO SCH (08:41)
[2020-12-31] MEDS: INSULIN REGULAR 100 UNIT/ML SUBCUT SCH (09:11)
[2020-12-31] MEDS: AMOXICILLIN/CLAV 500 MG TABLET PO SCH (09:12)
[2020-12-31] MEDS: BUDESONIDE/FORMOTEROL 80-4.5 INHALER 6.9 GM INH SCH (09:13)
[2020-12-31 12:04] VITALS: BP 149/92
== END 2020-12-31 13:02 | disposition home health service (06) | DRG 817 ==
LOC: EDBD → EDUNIT# → N.ED 04:09 → N.EDINP 05:58 → SUATTDRO 05:58 → N.CC 06:27 → N.3E 12-24 17:17 → N.TELEN 12-27 15:35
PROVIDERS: ADMIT Family Medicine; ATTEND Hospitalist

== ENCOUNTER 2021-04-10 20:23 | Inpatient (IN) ==
[2021-04-10 20:53] LABS: Basophils % 0.7 % (0.0-0.8); Eosinophils # 0.3 10*3/uL (0.0-0.87); Hematocrit 39.5 VOL% (35.7-47.0); Hemoglobin 11.7 GM/DL (12.0-16.0); Immature Granulocytes % 0.5 %; Immature Granulocytes Absolute 0.03 #; Lymphocytes # 1.1 10*3/uL (1.4-4.0); Lymphocytes % 19.3 % (21.3-54.2); Mean Corpuscular HGB Conc 29.6 GM/DL (32-36); Mean Corpuscular Volume 94.5 FL (87-102); Mean Platelet Volume 9.1 FL (9.6-12.0); Monocytes % 8.4 % (1.7-12.7); Neutrophils % 66.1 % (38.7-73.9); Platelet Count 113 T/CUMM (130-400); Red Blood Count 4.18 MC/CUMM (3.8-5.5); Red Cell Distribution Width 13.2 % (9.3-17.3); White Blood Count 5.6 T/CUMM (4-12)
[2021-04-10] MEDS ORDERED: ALBUTEROL/IPRATROPIUM 3 ML NEB RESP TX STA ×2 (20:54→22:07)
[2021-04-10] MEDS ORDERED: predniSONE 20 MG TABLET PO STA (20:54)
[2021-04-10] MEDS ORDERED: AZITHROMYCIN 250 MG TABLET PO STA (20:54)
[2021-04-10 21:11] LABS: INR 0.9; PT Patient Result 10.4 SECS (10.5-12.0); Partial Thromboplastin Time 24.3 SECS (23.9-33.8)
[2021-04-10 21:31] LABS: Alanine Aminotransferase 25 U/L (13-56); Albumin 3.7 G/DL (3.4-5.0); Alkaline Phosphatase 95 U/L (45-117); Aspartate Amino Transferase 16 U/L (0-37); Bilirubin,Total < 0.39 MG/DL (0.20-1.00); Blood Urea Nitrogen 14 MG/DL (7-18); Calcium 8.5 MG/DL (8.5-10.1); Carbon Dioxide 46 MMOL/L (21-32); Estimated Glom Filtration Rate 78 ML/MIN; Glucose 152 MG/DL (74-106); Osmolality,Calculated 289.8 MOS/KG (273-304); Potassium 3.8 MMOL/L (3.5-5.1); Sodium 144 MMOL/L (136-145); Total Protein 6.4 G/DL (6.4-8.2)
[2021-04-10] MEDS ORDERED: GLUCAGON 1 MG VIAL IM PRN ×2 (23:17)
[2021-04-10] MEDS ORDERED: DEXTROSE 50% 25 GM/50 ML VIAL IV PRN ×2 (23:17)
[2021-04-10] MEDS ORDERED: diphenhydrAMINE CAP 25 MG CAPSULE PO PRN (23:17)
[2021-04-10] MEDS ORDERED: ACETAMINOPHEN 325 MG TABLET PO PRN (23:17)
[2021-04-10] MEDS ORDERED: hydrALAZINE 20 MG/1 ML VIAL IV PRN (23:17)
[2021-04-10] MEDS ORDERED: ZALEPLON 5 MG CAPSULE PO PRN (23:17)
[2021-04-10] MEDS ORDERED: ONDANSETRON 4 MG/2 ML VIAL IV PRN (23:17)
[2021-04-10] MEDS ORDERED: NICOTINE 21 MG/24 HR PATCH TRANSDERM PRN (23:17)
[2021-04-10] MEDS ORDERED: guaiFENesin/DM ER 600-30 MG TABLET PO PRN (23:17)
[2021-04-11] MEDS: ALBUTEROL/IPRATROPIUM 3 ML NEB RESP TX SCH ×4 (00:15→20:00)
[2021-04-11] MEDS ORDERED: NALOXONE 0.4 MG/ML VIAL ONE (02:11)
[2021-04-11] MEDS ORDERED: NALOXONE 0.4 MG/ML VIAL IV ONE ×2 (02:26→02:54)
[2021-04-11 03:17] LABS: ABG Base Excess 10.3 MMOL/L (-2.5-2.5); ABG Oxygen Saturation 95.6 % (95-100); ABG PH 7.238 (7.35-7.45); ABG PO2 86.9 MM HG (80-95); ABG TCO2 38.7 MMOL/L (23-27); Allen Test Positive
[2021-04-11 03:18] LABS: ABG PCO2 99.6 MM HG (35-48)
[2021-04-11 05:20] LABS: Basophils % 0.2 % (0.0-0.8); Eosinophils % 0.6 % (0.00-10.9); Hematocrit 39.2 VOL% (35.7-47.0); Hemoglobin 11.3 GM/DL (12.0-16.0); Immature Granulocytes % 0.6 %; Immature Granulocytes Absolute 0.03 #; Lymphocytes # 0.4 10*3/uL (1.4-4.0); Lymphocytes % 7.2 % (21.3-54.2); Mean Corpuscular HGB Conc 28.8 GM/DL (32-36); Mean Corpuscular Volume 97.3 FL (87-102); Mean Platelet Volume 9.3 FL (9.6-12.0); Monocytes % 1.1 % (1.7-12.7); Neutrophils % 90.3 % (38.7-73.9); Platelet Count 86 T/CUMM (130-400); Red Blood Count 4.03 MC/CUMM (3.8-5.5); Red Cell Distribution Width 13.2 % (9.3-17.3); White Blood Count 5.3 T/CUMM (4-12)
[2021-04-11 05:27] LABS: Hypochromasia 1+; Microcytosis 1+; Ovalocytes Slight
[2021-04-11 05:28] LABS: Platelet Estimate Decreased
[2021-04-11 05:38] LABS: Potassium 4.1 MMOL/L (3.5-5.1)
[2021-04-11 05:43] LABS: ABG Base Excess 10.3 MMOL/L (-2.5-2.5); ABG Oxygen Saturation 94.6 % (95-100); ABG PH 7.272 (7.35-7.45); ABG PO2 79.3 MM HG (80-95); ABG TCO2 37.4 MMOL/L (23-27); Allen Test Positive; Pt O2 Delivery Device BIPAP
[2021-04-11 05:49] LABS: ABG PCO2 88.5 MM HG (35-48)
[2021-04-11 06:57] LABS: HIV Antigen/Antibody Result Nonreactive (Nonreactive); Hepatitis B Surface Ag Quant < 0.10 Index; Hepatitis B Surface Ag Result Non-Reactive (NonReactive); Hepatitis C Virus Ab Quant 0.02 Index; Hepatitis C Virus Ab Result Non-Reactive (NonReactive)
[2021-04-11] MEDS: LEVOTHYROXINE 50 MCG TABLET PO SCH (07:08)
[2021-04-11] MEDS: INSULIN LISPRO 100 UNIT/ML SUBCUT SCH ×4 (08:07→21:38)
[2021-04-11 08:15] LABS: Allen Test Positive; Pt O2 Delivery Device BIPAP
[2021-04-11 08:16] LABS: ABG Base Excess 11.9 MMOL/L (-2.5-2.5); ABG HCO3 35.7 MMOL/L (20-26); ABG Oxygen Saturation 96.1 % (95-100); ABG PH 7.305 (7.35-7.45); ABG PO2 85.9 MM HG (80-95); ABG TCO2 38.2 MMOL/L (23-27)
[2021-04-11 08:19] LABS: ABG PCO2 84.7 MM HG (35-48)
[2021-04-11] MEDS: BISACODYL 5 MG TABLET PO SCH (09:25)
[2021-04-11] MEDS: METOPROLOL TARTRATE 25 MG TABLET PO SCH ×2 (09:26→21:39)
[2021-04-11] MEDS: PANTOPRAZOLE 40 MG TABLET PO SCH (09:26)
[2021-04-11] MEDS: ENOXAPARIN 40 MG/0.4 ML SYRINGE SUBCUT SCH (09:27)
[2021-04-11] MEDS: ASPIRIN EC 81 MG TABLET PO SCH (09:27)
[2021-04-11] MEDS: methylPREDNISolone SOD SUC 40 MG/1 ML VIAL IV SCH ×2 (09:42→21:40)
[2021-04-11] MEDS: cefTRIAXone 1,000 MG in SODIUM CHLORIDE 0.9% 100 ML IV SCH (09:42)
[2021-04-11 10:32] LABS: Barbiturates Screen,Urine Negative (Negative); Benzodiazepines Screen,Urine Negative (Negative); Cannabinoid Screen,Urine Negative (Negative); Opiate Screen,Urine Positive (Negative); Phencyclidine Screen,Urine Negative (Negative)
[2021-04-11] MEDS: BUDESONIDE/FORMOTEROL 80-4.5 INHALER 6.9 GM INH SCH ×2 (12:56→21:40)
[2021-04-11] MEDS: MONTELUKAST 10 MG TABLET PO SCH (21:39)
[2021-04-12] MEDS: ALBUTEROL/IPRATROPIUM 3 ML NEB RESP TX SCH ×4 (00:45→20:07)
[2021-04-12 03:42] LABS: ABG HCO3 36.9 MMOL/L (20-26); ABG Oxygen Saturation 96.6 % (95-100); ABG PCO2 64.4 MM HG (35-48); ABG PH 7.376 (7.35-7.45); ABG PO2 91.6 MM HG (80-95); ABG TCO2 38.9 MMOL/L (23-27)
[2021-04-12] MEDS: LEVOTHYROXINE 50 MCG TABLET PO SCH (05:41)
[2021-04-12 06:32] LABS: Basophils % 0.1 % (0.0-0.8); Hematocrit 34.4 VOL% (35.7-47.0); Hemoglobin 10.9 GM/DL (12.0-16.0); Immature Granulocytes % 0.6 %; Immature Granulocytes Absolute 0.04 #; Lymphocytes # 0.6 10*3/uL (1.4-4.0); Lymphocytes % 9.2 % (21.3-54.2); Mean Corpuscular HGB Conc 31.7 GM/DL (32-36); Mean Corpuscular Volume 88.7 FL (87-102); Mean Platelet Volume 10.2 FL (9.6-12.0); Monocytes % 1.5 % (1.7-12.7); Neutrophils % 88.6 % (38.7-73.9); Platelet Count 106 T/CUMM (130-400); Red Blood Count 3.88 MC/CUMM (3.8-5.5); Red Cell Distribution Width 13.3 % (9.3-17.3); White Blood Count 6.8 T/CUMM (4-12)
[2021-04-12 07:07] LABS: Calcium 8.8 MG/DL (8.5-10.1); Osmolality,Calculated 284.5 MOS/KG (273-304); Potassium 4.2 MMOL/L (3.5-5.1)
[2021-04-12] MEDS ORDERED: MAGNESIUM SULF RIDER 4 GM/100 ML PREMIX IV ONE (08:19)
[2021-04-12] MEDS: INSULIN LISPRO 100 UNIT/ML SUBCUT SCH ×4 (08:38→20:52)
[2021-04-12] MEDS: BISACODYL 5 MG TABLET PO SCH (08:40)
[2021-04-12] MEDS: ASPIRIN EC 81 MG TABLET PO SCH (08:40)
[2021-04-12] MEDS: cefTRIAXone 1,000 MG in SODIUM CHLORIDE 0.9% 100 ML IV SCH (08:40)
[2021-04-12] MEDS: METOPROLOL TARTRATE 25 MG TABLET PO SCH ×2 (08:40→20:45)
[2021-04-12] MEDS: PANTOPRAZOLE 40 MG TABLET PO SCH (08:40)
[2021-04-12] MEDS: ENOXAPARIN 40 MG/0.4 ML SYRINGE SUBCUT SCH (08:40)
[2021-04-12] MEDS: methylPREDNISolone SOD SUC 40 MG/1 ML VIAL IV SCH (08:41)
[2021-04-12] MEDS: GABAPENTIN 100 MG CAPSULE PO SCH ×2 (09:20→20:45)
[2021-04-12] MEDS: BUDESONIDE/FORMOTEROL 80-4.5 INHALER 6.9 GM INH SCH ×2 (09:20→23:24)
[2021-04-12] MEDS ORDERED: MORPHINE 2 MG/1 ML SYRINGE IV ONE (17:07)
[2021-04-12] MEDS: MONTELUKAST 10 MG TABLET PO SCH (20:45)
[2021-04-13] MEDS: ALBUTEROL/IPRATROPIUM 3 ML NEB RESP TX SCH ×3 (01:41→14:18)
[2021-04-13 04:27] LABS: Basophils % 0.2 % (0.0-0.8); Hematocrit 33.5 VOL% (35.7-47.0); Hemoglobin 10.5 GM/DL (12.0-16.0); Immature Granulocytes % 0.5 %; Immature Granulocytes Absolute 0.03 #; Lymphocytes # 1.3 10*3/uL (1.4-4.0); Lymphocytes % 19.8 % (21.3-54.2); Mean Corpuscular HGB Conc 31.3 GM/DL (32-36); Mean Corpuscular Volume 88.4 FL (87-102); Mean Platelet Volume 9.5 FL (9.6-12.0); Monocytes % 7.8 % (1.7-12.7); Neutrophils % 71.7 % (38.7-73.9); Platelet Count 121 T/CUMM (130-400); Red Blood Count 3.79 MC/CUMM (3.8-5.5); Red Cell Distribution Width 14.2 % (9.3-17.3); White Blood Count 6.4 T/CUMM (4-12)
[2021-04-13 05:08] LABS: Calcium 8.9 MG/DL (8.5-10.1); Osmolality,Calculated 287.1 MOS/KG (273-304); Potassium 2.9 MMOL/L (3.5-5.1)
[2021-04-13] MEDS: LEVOTHYROXINE 50 MCG TABLET PO SCH (05:55)
[2021-04-13] MEDS: INSULIN LISPRO 100 UNIT/ML SUBCUT SCH ×2 (07:37→11:27)
[2021-04-13] MEDS: ASPIRIN EC 81 MG TABLET PO SCH ×2 (07:43→08:14)
[2021-04-13] MEDS: GABAPENTIN 100 MG CAPSULE PO SCH ×2 (07:44→08:15)
[2021-04-13] MEDS: PANTOPRAZOLE 40 MG TABLET PO SCH ×2 (07:44→08:15)
[2021-04-13] MEDS: METOPROLOL TARTRATE 25 MG TABLET PO SCH ×2 (07:44→08:14)
[2021-04-13] MEDS: ENOXAPARIN 40 MG/0.4 ML SYRINGE SUBCUT SCH ×2 (07:44→08:15)
[2021-04-13] MEDS: cefTRIAXone 1,000 MG in SODIUM CHLORIDE 0.9% 100 ML IV SCH ×2 (07:45→08:15)
[2021-04-13] MEDS: BISACODYL 5 MG TABLET PO SCH (08:14)
[2021-04-13] MEDS: BUDESONIDE/FORMOTEROL 80-4.5 INHALER 6.9 GM INH SCH (08:15)
[2021-04-13] MEDS ORDERED: POTASSIUM CHLORIDE 20 MEQ TABLET PO ONE (13:53)
[2021-04-13 15:52] VITALS: BP 157/102
[2021-04-13 15:56] LABS: Calcium 8.7 MG/DL (8.5-10.1); Potassium 3.4 MMOL/L (3.5-5.1)
== END 2021-04-13 18:25 | disposition home health service (06) | DRG 140 ==
LOC: EDBD → EDUNIT# → N.ED 20:23 → N.EDINP 20:23 → SUATTDRO 23:17 → N.TELEN 04-11 00:49 → N.5E 04-11 01:13 → N.ICU 04-11 03:34 → SUATTDRO 04-11 08:40 → N.4E 04-12 12:38
PROVIDERS: ADMIT Emergency Medicine; ATTEND Internal Medicine Nephrology

== ENCOUNTER 2021-05-30 05:04 | Inpatient (IN) ==
[2021-05-30 05:18] LABS: ABG Base Excess 13.3 MMOL/L (-2.5-2.5); ABG HCO3 37.1 MMOL/L (20-26); ABG Oxygen Saturation 95.6 % (95-100); ABG PH 7.377 (7.35-7.45); ABG PO2 76.4 MM HG (80-95); ABG TCO2 37.2 MMOL/L (23-27); Allen Test Positive
[2021-05-30 05:23] LABS: ABG PCO2 72.3 MM HG (35-48)
[2021-05-30] MEDS ORDERED: LABETALOL 20 MG/4 ML SYRINGE IV STA (05:36)
[2021-05-30 05:44] LABS: Basophils % 0.3 % (0.0-0.8); Hematocrit 43.8 VOL% (35.7-47.0); Hemoglobin 13.6 GM/DL (12.0-16.0); Immature Granulocytes % 0.9 %; Immature Granulocytes Absolute 0.08 #; Lymphocytes # 0.5 10*3/uL (1.4-4.0); Lymphocytes % 4.9 % (21.3-54.2); Mean Corpuscular HGB Conc 31.1 GM/DL (32-36); Mean Corpuscular Volume 93.2 FL (87-102); Mean Platelet Volume 9.3 FL (9.6-12.0); Monocytes % 0.8 % (1.7-12.7); Neutrophils % 93.1 % (38.7-73.9); Platelet Count 156 T/CUMM (130-400); Red Cell Distribution Width 14.4 % (9.3-17.3); White Blood Count 9.1 T/CUMM (4-12)
[2021-05-30 06:14] LABS: Albumin 3.6 G/DL (3.4-5.0); Bilirubin,Total 0.8 MG/DL (0.20-1.00); Calcium 8.9 MG/DL (8.5-10.1); Ferritin 18.1 ng/mL (8-252); Total Protein 7.4 G/DL (6.4-8.2)
[2021-05-30] MEDS ORDERED: hydrALAZINE 20 MG/1 ML VIAL IV PRN (06:17)
[2021-05-30] MEDS ORDERED: GLUCAGON 1 MG VIAL IM PRN (06:24)
[2021-05-30] MEDS ORDERED: DEXTROSE 50% 25 GM/50 ML VIAL IV PRN (06:24)
[2021-05-30] MEDS ORDERED: methylPREDNISolone SOD SUC 125 MG/2 ML VIAL IV SCH (06:30)
[2021-05-30] MEDS ORDERED: ENOXAPARIN 30 MG/0.3 ML SYRINGE SUBCUT SCH (06:30)
[2021-05-30 06:31] LABS: Lymphocytes 7 % (20-55); Segmented Neutrophils 92 % (50-85); Total Cells Counted 100
[2021-05-30 06:32] LABS: Platelet Estimate Normal
[2021-05-30 08:18] LABS: ABG HCO3 34.8 MMOL/L (20-26); ABG PH 7.355 (7.35-7.45); ABG TCO2 35.4 MMOL/L (23-27); Allen Test Positive; Pt O2 Delivery Device Other
[2021-05-30 08:19] LABS: ABG PCO2 71.7 MM HG (35-48)
[2021-05-30] MEDS ORDERED: DILTIAZEM 25 MG/5 ML VIAL IV ONE (08:30)
[2021-05-30] MEDS: INSULIN LISPRO 100 UNIT/ML SUBCUT SCH ×4 (08:58→21:49)
[2021-05-30] MEDS: FAMOTIDINE 20 MG/2 ML VIAL IV SCH ×2 (09:00→21:50)
[2021-05-30] MEDS ORDERED: FAMOTIDINE 20 MG TABLET PO SCH (09:00)
[2021-05-30] MEDS ORDERED: CHOLECALCIFEROL 400 UNIT TABLET PO SCH (09:00)
[2021-05-30] MEDS: ASCORBIC ACID 500 MG TABLET PO SCH (09:01)
[2021-05-30] MEDS: amLODIPine 5 MG TABLET PO SCH (09:01)
[2021-05-30] MEDS: NICOTINE 21 MG/24 HR PATCH TRANSDERM SCH (09:02)
[2021-05-30] MEDS: AZITHROMYCIN INJ 500 MG in SODIUM CHLORIDE 0.9% 250 ML IV SCH (09:16)
[2021-05-30] MEDS: BUDESONIDE/FORMOTEROL 160-4.5 INHALER 6 GM INH SCH ×3 (09:16→21:49)
[2021-05-30 09:40] LABS: ABG Base Excess 10.9 MMOL/L (-2.5-2.5); ABG HCO3 34.7 MMOL/L (20-26); ABG Oxygen Saturation 99.4 % (95-100); ABG PH 7.363 (7.35-7.45)
[2021-05-30 09:42] LABS: ABG PCO2 69.6 MM HG (35-48)
[2021-05-30] MEDS ORDERED: REMDESIVIR 200 MG in SODIUM CHLORIDE 0.9% 210 ML IV ONE (10:00)
[2021-05-30] MEDS ORDERED: MELATONIN 3 MG TABLET PO PRN (10:01)
[2021-05-30] MEDS ORDERED: POTASSIUM CHLORIDE 20 MEQ TABLET PO ONE (10:06)
[2021-05-30] MEDS: METOPROLOL TARTRATE 25 MG TABLET PO SCH ×2 (10:41→21:51)
[2021-05-30] MEDS: POTASSIUM CHLORIDE RIDER 10 MEQ/100 ML PREMIX IV SCH ×2 (10:42→10:43)
[2021-05-30] MEDS ORDERED: ACETAMINOPHEN 325 MG TABLET PO PRN (15:17)
[2021-05-30] MEDS ORDERED: amLODIPine 5 MG TABLET PO SCH (15:30)
[2021-05-30] MEDS: methylPREDNISolone SOD SUC 40 MG/1 ML VIAL IV SCH ×2 (16:07→23:30)
[2021-05-30] MEDS: oxyCODONE/ACETAMINOPHEN 5-325 MG TABLET PO PRN ×2 (16:07→21:51)
[2021-05-30] MEDS: GABAPENTIN 300 MG CAPSULE PO SCH (21:49)
[2021-05-30] MEDS: ROSUVASTATIN 20 MG TABLET PO SCH (21:50)
[2021-05-30] MEDS: MONTELUKAST 10 MG TABLET PO SCH (21:51)
[2021-05-30] MEDS: APIXABAN 5 MG TABLET PO SCH (21:51)
[2021-05-31] MEDS: oxyCODONE/ACETAMINOPHEN 5-325 MG TABLET PO PRN ×4 (03:25→20:49)
[2021-05-31 04:29] LABS: Basophils % 0.1 % (0.0-0.8); Hematocrit 35.4 VOL% (35.7-47.0); Hemoglobin 11.1 GM/DL (12.0-16.0); Immature Granulocytes % 0.8 %; Immature Granulocytes Absolute 0.06 #; Lymphocytes # 0.7 10*3/uL (1.4-4.0); Lymphocytes % 8.4 % (21.3-54.2); Mean Corpuscular HGB Conc 31.4 GM/DL (32-36); Mean Platelet Volume 9.4 FL (9.6-12.0); Monocytes % 1.3 % (1.7-12.7); Neutrophils % 89.4 % (38.7-73.9); Platelet Count 159 T/CUMM (130-400); Red Blood Count 3.89 MC/CUMM (3.8-5.5); Red Cell Distribution Width 14.6 % (9.3-17.3); White Blood Count 7.8 T/CUMM (4-12)
[2021-05-31 05:18] LABS: Alanine Aminotransferase 11 U/L (13-56); Albumin 3.3 G/DL (3.4-5.0); Alkaline Phosphatase 52 U/L (45-117); Aspartate Amino Transferase 15 U/L (0-37); Blood Urea Nitrogen 17 MG/DL (7-18); Calcium 9.3 MG/DL (8.5-10.1); Carbon Dioxide 32 MMOL/L (21-32); Estimated Glom Filtration Rate 71 ML/MIN; Ferritin 20.1 ng/mL (8-252); Glucose 153 MG/DL (74-106); Osmolality,Calculated 277.8 MOS/KG (273-304); Potassium 3.7 MMOL/L (3.5-5.1); Sodium 137 MMOL/L (136-145); Total Protein 6.3 G/DL (6.4-8.2)
[2021-05-31] MEDS: LEVOTHYROXINE 50 MCG TABLET PO SCH (06:29)
[2021-05-31] MEDS: ASPIRIN EC 81 MG TABLET PO SCH (10:48)
[2021-05-31] MEDS: methylPREDNISolone SOD SUC 40 MG/1 ML VIAL IV SCH ×3 (10:48→23:10)
[2021-05-31] MEDS: METOPROLOL TARTRATE 25 MG TABLET PO SCH ×2 (10:48→20:50)
[2021-05-31] MEDS: amLODIPine 5 MG TABLET PO SCH (10:48)
[2021-05-31] MEDS: APIXABAN 5 MG TABLET PO SCH ×2 (10:48→20:50)
[2021-05-31] MEDS: GABAPENTIN 300 MG CAPSULE PO SCH ×3 (10:48→20:50)
[2021-05-31] MEDS: FAMOTIDINE 20 MG/2 ML VIAL IV SCH ×2 (10:49→20:50)
[2021-05-31] MEDS: ASCORBIC ACID 500 MG TABLET PO SCH (10:51)
[2021-05-31] MEDS: CHOLECALCIFEROL 1,000 UNIT TABLET PO SCH (10:51)
[2021-05-31] MEDS: PANTOPRAZOLE 40 MG TABLET PO SCH (10:51)
[2021-05-31] MEDS: ZINC GLUCONATE 50 MG TABLET PO SCH (10:51)
[2021-05-31] MEDS: CETIRIZINE 10 MG TABLET PO SCH (10:51)
[2021-05-31] MEDS: INSULIN LISPRO 100 UNIT/ML SUBCUT SCH ×4 (12:49→20:50)
[2021-05-31] MEDS: BUDESONIDE/FORMOTEROL 160-4.5 INHALER 6 GM INH SCH ×2 (12:52→20:50)
[2021-05-31] MEDS: REMDESIVIR 100 MG in SODIUM CHLORIDE 0.9% 100 ML IV SCH (13:24)
[2021-05-31] MEDS: NICOTINE 21 MG/24 HR PATCH TRANSDERM SCH (13:24)
[2021-05-31] MEDS: AZITHROMYCIN INJ 500 MG in SODIUM CHLORIDE 0.9% 250 ML IV SCH (15:19)
[2021-05-31] MEDS: DILTIAZEM INJ 100 MG in SODIUM CHLORIDE 0.9% 100 ML IV SCH (15:19)
[2021-05-31] MEDS: ROSUVASTATIN 20 MG TABLET PO SCH (20:50)
[2021-05-31] MEDS: MONTELUKAST 10 MG TABLET PO SCH (20:50)
[2021-06-01] MEDS: oxyCODONE/ACETAMINOPHEN 5-325 MG TABLET PO PRN ×3 (01:23→13:56)
[2021-06-01] MEDS: LEVOTHYROXINE 50 MCG TABLET PO SCH (06:00)
[2021-06-01 06:15] LABS: Blood Urea Nitrogen 27 MG/DL (7-18); Calcium 8.5 MG/DL (8.5-10.1); Carbon Dioxide 30 MMOL/L (21-32); Estimated Glom Filtration Rate 57 ML/MIN; Glucose 348 MG/DL (74-106); Osmolality,Calculated 291.8 MOS/KG (273-304); Potassium 3.5 MMOL/L (3.5-5.1); Sodium 137 MMOL/L (136-145)
[2021-06-01] MEDS ORDERED: FAMOTIDINE 20 MG TABLET PO SCH (09:00)
[2021-06-01] MEDS: CHOLECALCIFEROL 1,000 UNIT TABLET PO SCH (09:52)
[2021-06-01] MEDS: ASPIRIN EC 81 MG TABLET PO SCH (09:53)
[2021-06-01] MEDS: amLODIPine 5 MG TABLET PO SCH (09:53)
[2021-06-01] MEDS: NICOTINE 21 MG/24 HR PATCH TRANSDERM SCH (09:53)
[2021-06-01] MEDS: APIXABAN 5 MG TABLET PO SCH (09:53)
[2021-06-01] MEDS: ZINC GLUCONATE 50 MG TABLET PO SCH (09:54)
[2021-06-01] MEDS: GABAPENTIN 300 MG CAPSULE PO SCH ×2 (09:54→14:04)
[2021-06-01] MEDS: PANTOPRAZOLE 40 MG TABLET PO SCH (09:54)
[2021-06-01] MEDS: ASCORBIC ACID 500 MG TABLET PO SCH (09:54)
[2021-06-01] MEDS: METOPROLOL TARTRATE 25 MG TABLET PO SCH (09:54)
[2021-06-01] MEDS: INSULIN LISPRO 100 UNIT/ML SUBCUT SCH ×2 (09:55→12:58)
[2021-06-01] MEDS: REMDESIVIR 100 MG in SODIUM CHLORIDE 0.9% 100 ML IV SCH (09:56)
[2021-06-01] MEDS: BUDESONIDE/FORMOTEROL 160-4.5 INHALER 6 GM INH SCH (09:57)
[2021-06-01] MEDS ORDERED: methylPREDNISolone SOD SUC 40 MG/1 ML VIAL IV SCH (10:00)
[2021-06-01] MEDS: CETIRIZINE 10 MG TABLET PO SCH (10:14)
[2021-06-01] MEDS: DILTIAZEM INJ 100 MG in SODIUM CHLORIDE 0.9% 100 ML IV SCH (11:45)
[2021-06-01] MEDS: methylPREDNISolone SOD SUC 40 MG/1 ML VIAL IV SCH (11:46)
[2021-06-01 12:25] VITALS: BP 160/89
[2021-06-02] MEDS ORDERED: AZITHROMYCIN 250 MG TABLET PO SCH (09:00)
== END 2021-06-01 15:56 | disposition home health service (06) | DRG 137 ==
LOC: N.ED 05:04 → SUATTDRO 06:05 → N.EDINP 06:05 → N.2E 06:30
PROVIDERS: ADMIT Emergency Medicine; ATTEND Internal Medicine Geriatric Medicine

== ENCOUNTER 2021-07-28 14:19 | Inpatient (IN) ==
[2021-07-28] MEDS ORDERED: SODIUM CHLORIDE 0.9% 1,000 ML IV STA (14:39)
[2021-07-28 15:18] LABS: ABG Base Excess 13.2 MMOL/L (-2.5-2.5); ABG HCO3 36.9 MMOL/L (20-26); ABG Oxygen Saturation 92.6 % (95-100); ABG PH 7.324 (7.35-7.45); ABG PO2 68.7 MM HG (80-95); ABG TCO2 39.1 MMOL/L (23-27)
[2021-07-28 15:18] LABS: Basophils % 0.6 % (0.0-0.8); Eosinophils # 0.1 10*3/uL (0.0-0.87); Eosinophils % 0.9 % (0.00-10.9); Hematocrit 36.7 VOL% (35.7-47.0); Hemoglobin 11.2 GM/DL (12.0-16.0); Immature Granulocytes % 0.3 %; Immature Granulocytes Absolute 0.02 #; Lymphocytes % 14.2 % (21.3-54.2); Mean Corpuscular HGB Conc 30.5 GM/DL (32-36); Mean Corpuscular Volume 96.3 FL (87-102); Mean Platelet Volume 9.8 FL (9.6-12.0); Monocytes % 8.7 % (1.7-12.7); Neutrophils % 75.3 % (38.7-73.9); Platelet Count 148 T/CUMM (130-400); Red Blood Count 3.81 MC/CUMM (3.8-5.5); Red Cell Distribution Width 12.9 % (9.3-17.3); White Blood Count 6.7 T/CUMM (4-12)
[2021-07-28 15:23] LABS: ABG PCO2 83.1 MM HG (35-48)
[2021-07-28 15:29] LABS: INR 2.9; PT Patient Result 30.5 SECS (10.5-12.0); Partial Thromboplastin Time 42.6 SECS (23.8-32.1)
[2021-07-28] MEDS ORDERED: LORazepam 2 MG/1 ML VIAL IV STA (15:37)
[2021-07-28 15:46] LABS: Alanine Aminotransferase 15 U/L (13-56); Albumin 3.3 G/DL (3.4-5.0); Alkaline Phosphatase 65 U/L (45-117); Aspartate Amino Transferase 22 U/L (0-37); Blood Urea Nitrogen 19 MG/DL (7-18); Calcium 9.4 MG/DL (8.5-10.1); Carbon Dioxide 36 MMOL/L (21-32); Estimated Glom Filtration Rate 76 ML/MIN; Glucose 120 MG/DL (74-106); Osmolality,Calculated 288.8 MOS/KG (273-304); Potassium 4.3 MMOL/L (3.5-5.1); Sodium 144 MMOL/L (136-145); Total Protein 6.9 G/DL (6.4-8.2)
[2021-07-28 17:04] LABS: Bacteria,Urine Moderate /HPF (Few); Bilirubin,Urine Negative (Negative); Blood, Urine Negative (Negative); Glucose,Urine (UA) Negative (Negative); Hyaline Casts,Urine 4 /LPF (0-3); Ketones,Urine 5 mg/dL (Negative); Mucus,Urine Occasional /LPF (Occasional); Nitrite,Urine Positive (Negative); Protein,Urine 30 MG/DL; RBC,Urine 2 /HPF (0-4); Urine Appearance CLEAR (Clear); Urine Color Yellow (Yellow); Urine Specific Gravity 1.012 (1.001-1.035); Urine Urobilinogen < 2.0 EU/DL (0.2-1.0)
[2021-07-28] MEDS ORDERED: ONDANSETRON 4 MG/2 ML VIAL IV PRN (17:08)
[2021-07-28] MEDS ORDERED: DEXTROSE 50% 25 GM/50 ML VIAL IV PRN ×2 (17:08→17:40)
[2021-07-28] MEDS ORDERED: GLUCAGON 1 MG VIAL IM PRN ×2 (17:08→17:40)
[2021-07-28 18:17] LABS: ABG Base Excess 11.8 MMOL/L (-2.5-2.5); ABG HCO3 35.5 MMOL/L (20-26); ABG Oxygen Saturation 97.5 % (95-100); ABG PH 7.253 (7.35-7.45); ABG TCO2 39.7 MMOL/L (23-27)
[2021-07-28 18:20] LABS: ABG PCO2 97.2 MM HG (35-48)
[2021-07-28] MEDS ORDERED: ALBUTEROL/IPRATROPIUM 3 ML NEB RESP TX PRN (19:00)
[2021-07-28] MEDS: ALBUTEROL/IPRATROPIUM 3 ML NEB RESP TX SCH (19:36)
[2021-07-28] MEDS: methylPREDNISolone SOD SUC 40 MG/1 ML VIAL IV SCH (20:48)
[2021-07-28] MEDS: ENOXAPARIN 30 MG/0.3 ML SYRINGE SUBCUT SCH (20:50)
[2021-07-28] MEDS: LEVOFLOXACIN INJ 500 MG/100 ML PREMIX IV SCH (20:51)
[2021-07-28 20:56] LABS: ABG Base Excess 12.1 MMOL/L (-2.5-2.5); ABG HCO3 35.9 MMOL/L (20-26); ABG Oxygen Saturation 94.5 % (95-100); ABG PO2 75.5 MM HG (80-95); ABG TCO2 37.4 MMOL/L (23-27)
[2021-07-28] MEDS: INSULIN LISPRO 100 UNIT/ML SUBCUT SCH (20:56)
[2021-07-28 20:58] LABS: ABG PCO2 76.5 MM HG (35-48)
[2021-07-28 23:16] LABS: Barbiturates Screen,Urine Negative (Negative); Benzodiazepines Screen,Urine Negative (Negative); Cannabinoid Screen,Urine Negative (Negative); Opiate Screen,Urine Negative (Negative); Phencyclidine Screen,Urine Negative (Negative)
[2021-07-29] MEDS ORDERED: LORazepam 2 MG/1 ML VIAL IV ONE (00:01)
[2021-07-29] MEDS ORDERED: LORazepam 2 MG/1 ML VIAL ONE (00:04)
[2021-07-29 00:12] LABS: Bacteria,Urine Many /HPF (Few); Bilirubin,Urine Negative (Negative); Blood, Urine Negative (Negative); Glucose,Urine (UA) Negative (Negative); Ketones,Urine 5 mg/dL (Negative); Mucus,Urine Occasional /LPF (Occasional); Nitrite,Urine Positive (Negative); Protein,Urine 30 MG/DL; RBC,Urine 5 /HPF (0-4); Squamous Epithelial Cell,Urine Occasional /HPF (0-10); Urine Appearance CLEAR (Clear); Urine Color Yellow (Yellow); Urine Specific Gravity 1.012 (1.001-1.035); Urine Urobilinogen < 2.0 EU/DL (0.2-1.0)
[2021-07-29 00:30] LABS: ABG Base Excess 9.6 MMOL/L (-2.5-2.5); ABG HCO3 37.6 MMOL/L (20-26); ABG Oxygen Saturation 94.8 % (95-100); ABG PH 7.342 (7.35-7.45); ABG PO2 78.5 MM HG (80-95); ABG TCO2 39.8 MMOL/L (23-27)
[2021-07-29] MEDS ORDERED: LABETALOL 20 MG/4 ML SYRINGE IV PRN (00:34)
[2021-07-29] MEDS ORDERED: LABETALOL 20 MG/4 ML SYRINGE IV ONE (00:34)
[2021-07-29] MEDS: ALBUTEROL/IPRATROPIUM 3 ML NEB RESP TX SCH ×4 (01:00→19:40)
[2021-07-29] MEDS: INSULIN LISPRO 100 UNIT/ML SUBCUT SCH ×4 (01:04→18:31)
[2021-07-29] MEDS: methylPREDNISolone SOD SUC 40 MG/1 ML VIAL IV SCH ×3 (02:31→18:31)
[2021-07-29 04:10] LABS: ABG Base Excess 12.8 MMOL/L (-2.5-2.5); ABG HCO3 39.9 MMOL/L (20-26); ABG Oxygen Saturation 97.1 % (95-100); ABG PCO2 66.1 MM HG (35-48); ABG PH 7.399 (7.35-7.45); ABG PO2 96.5 MM HG (80-95); Allen Test Positive; Pt O2 Delivery Device BIPAP
[2021-07-29 05:09] LABS: Basophils % 0.7 % (0.0-0.8); Eosinophils % 0.5 % (0.00-10.9); Hematocrit 35.3 VOL% (35.7-47.0); Hemoglobin 11.1 GM/DL (12.0-16.0); Immature Granulocytes % 0.2 %; Immature Granulocytes Absolute 0.01 #; Lymphocytes # 0.4 10*3/uL (1.4-4.0); Mean Corpuscular HGB Conc 31.4 GM/DL (32-36); Mean Corpuscular Volume 95.1 FL (87-102); Mean Platelet Volume 11.8 FL (9.6-12.0); Neutrophils % 87.6 % (38.7-73.9); Platelet Count 74 T/CUMM (130-400); Red Blood Count 3.71 MC/CUMM (3.8-5.5); Red Cell Distribution Width 12.9 % (9.3-17.3); White Blood Count 4.2 T/CUMM (4-12)
[2021-07-29 05:36] LABS: Albumin 3.1 G/DL (3.4-5.0); Bilirubin,Total 0.7 MG/DL (0.20-1.00); Calcium 9.5 MG/DL (8.5-10.1); Osmolality,Calculated 288.1 MOS/KG (273-304); Potassium 4.5 MMOL/L (3.5-5.1); Total Protein 7.3 G/DL (6.4-8.2)
[2021-07-29] MEDS: LEVOTHYROXINE 50 MCG TABLET PO SCH (09:59)
[2021-07-29] MEDS: METOPROLOL TARTRATE 25 MG TABLET PO SCH ×2 (09:59→20:08)
[2021-07-29] MEDS: carvediloL 3.125 MG TABLET PO SCH ×2 (09:59→20:08)
[2021-07-29] MEDS: amLODIPine 5 MG TABLET PO SCH (09:59)
[2021-07-29] MEDS: LORazepam 2 MG/1 ML VIAL IV PRN ×2 (10:00→20:08)
[2021-07-29] MEDS: ENOXAPARIN 30 MG/0.3 ML SYRINGE SUBCUT SCH (18:31)
[2021-07-29] MEDS: LEVOFLOXACIN INJ 500 MG/100 ML PREMIX IV SCH (18:31)
[2021-07-29] MEDS: MONTELUKAST 10 MG TABLET PO SCH (20:08)
[2021-07-30] MEDS: INSULIN LISPRO 100 UNIT/ML SUBCUT SCH ×5 (00:03→20:46)
[2021-07-30] MEDS: LORazepam 2 MG/1 ML VIAL IV PRN ×2 (01:03→08:42)
[2021-07-30] MEDS: ALBUTEROL/IPRATROPIUM 3 ML NEB RESP TX SCH ×4 (01:11→19:13)
[2021-07-30] MEDS: methylPREDNISolone SOD SUC 40 MG/1 ML VIAL IV SCH ×3 (02:52→18:24)
[2021-07-30] MEDS: LEVOTHYROXINE 50 MCG TABLET PO SCH (05:52)
[2021-07-30 06:03] LABS: Basophils % 0.1 % (0.0-0.8); Hematocrit 33.6 VOL% (35.7-47.0); Hemoglobin 10.9 GM/DL (12.0-16.0); Immature Granulocytes % 0.5 %; Immature Granulocytes Absolute 0.04 #; Lymphocytes # 0.7 10*3/uL (1.4-4.0); Lymphocytes % 9.5 % (21.3-54.2); Mean Corpuscular HGB Conc 32.4 GM/DL (32-36); Mean Corpuscular Volume 94.1 FL (87-102); Monocytes % 6.2 % (1.7-12.7); Neutrophils % 83.7 % (38.7-73.9); Platelet Count 175 T/CUMM (130-400); Red Blood Count 3.57 MC/CUMM (3.8-5.5); White Blood Count 7.4 T/CUMM (4-12)
[2021-07-30 06:16] LABS: Calcium 9.8 MG/DL (8.5-10.1); Osmolality,Calculated 282.4 MOS/KG (273-304)
[2021-07-30] MEDS ORDERED: POTASSIUM CHLORIDE 20 MEQ TABLET PO ONE (07:19)
[2021-07-30] MEDS ORDERED: MAGNESIUM SULF RIDER 4 GM/100 ML PREMIX IV PRN (07:21)
[2021-07-30] MEDS ORDERED: MAGNESIUM SULF RIDER 2 GM/50 ML PREMIX IV PRN (07:21)
[2021-07-30] MEDS ORDERED: hydrALAZINE 20 MG/1 ML VIAL IV PRN (08:10)
[2021-07-30] MEDS: amLODIPine 5 MG TABLET PO SCH (08:44)
[2021-07-30] MEDS: METOPROLOL TARTRATE 25 MG TABLET PO SCH ×2 (08:44→20:45)
[2021-07-30] MEDS: carvediloL 3.125 MG TABLET PO SCH ×2 (08:44→20:45)
[2021-07-30 10:03] LABS: ABG HCO3 41.4 MMOL/L (20-26); ABG Oxygen Saturation 97.7 % (95-100); ABG PCO2 54.6 MM HG (35-48); ABG PH 7.498 (7.35-7.45); ABG PO2 106.1 MM HG (80-95); ABG TCO2 43.1 MMOL/L (23-27)
[2021-07-30] MEDS ORDERED: DEXTROSE 50% 25 GM/50 ML VIAL IV PRN (12:40)
[2021-07-30] MEDS ORDERED: GLUCAGON 1 MG VIAL IM PRN (12:40)
[2021-07-30 13:14] LABS: ABG Base Excess 13.1 MMOL/L (-2.5-2.5); ABG HCO3 38.4 MMOL/L (20-26); ABG Oxygen Saturation 91.6 % (95-100); ABG PCO2 52.4 MM HG (35-48); ABG PH 7.483 (7.35-7.45); ABG PO2 64.5 MM HG (80-95); Allen Test Positive
[2021-07-30] MEDS: oxyCODONE/ACETAMINOPHEN 5-325 MG TABLET PO PRN ×2 (15:37→23:01)
[2021-07-30] MEDS: GABAPENTIN 300 MG CAPSULE PO SCH ×3 (15:39→20:54)
[2021-07-30] MEDS: ENOXAPARIN 30 MG/0.3 ML SYRINGE SUBCUT SCH (18:21)
[2021-07-30] MEDS: LEVOFLOXACIN INJ 500 MG/100 ML PREMIX IV SCH (18:26)
[2021-07-30] MEDS: MONTELUKAST 10 MG TABLET PO SCH (20:45)
[2021-07-31] MEDS: ALBUTEROL/IPRATROPIUM 3 ML NEB RESP TX SCH ×4 (00:54→18:09)
[2021-07-31 04:07] LABS: Hematocrit 32.6 VOL% (35.7-47.0); Hemoglobin 10.5 GM/DL (12.0-16.0); Immature Granulocytes % 0.5 %; Immature Granulocytes Absolute 0.03 #; Lymphocytes # 0.5 10*3/uL (1.4-4.0); Lymphocytes % 8.8 % (21.3-54.2); Mean Corpuscular HGB Conc 32.2 GM/DL (32-36); Mean Corpuscular Volume 91.3 FL (87-102); Mean Platelet Volume 9.9 FL (9.6-12.0); Monocytes % 2.8 % (1.7-12.7); Neutrophils % 87.9 % (38.7-73.9); Platelet Count 152 T/CUMM (130-400); Red Blood Count 3.57 MC/CUMM (3.8-5.5); Red Cell Distribution Width 12.7 % (9.3-17.3); White Blood Count 6.1 T/CUMM (4-12)
[2021-07-31 04:22] LABS: ABG Base Excess 11.3 MMOL/L (-2.5-2.5); ABG Oxygen Saturation 95.9 % (95-100); ABG PCO2 54.9 MM HG (35-48); ABG PH 7.442 (7.35-7.45); ABG PO2 84.1 MM HG (80-95); ABG TCO2 33.8 MMOL/L (23-27)
[2021-07-31 04:32] LABS: Calcium 8.9 MG/DL (8.5-10.1); Potassium 3.6 MMOL/L (3.5-5.1)
[2021-07-31] MEDS: methylPREDNISolone SOD SUC 40 MG/1 ML VIAL IV SCH ×3 (05:16→21:17)
[2021-07-31] MEDS: LEVOTHYROXINE 50 MCG TABLET PO SCH (05:16)
[2021-07-31] MEDS: oxyCODONE/ACETAMINOPHEN 5-325 MG TABLET PO PRN ×3 (07:14→23:39)
[2021-07-31] MEDS: INSULIN LISPRO 100 UNIT/ML SUBCUT SCH ×4 (09:13→21:17)
[2021-07-31] MEDS: GABAPENTIN 300 MG CAPSULE PO SCH ×3 (09:14→21:16)
[2021-07-31] MEDS: METOPROLOL TARTRATE 25 MG TABLET PO SCH ×2 (09:14→21:16)
[2021-07-31] MEDS: carvediloL 3.125 MG TABLET PO SCH ×2 (09:14→21:16)
[2021-07-31] MEDS: amLODIPine 5 MG TABLET PO SCH (09:15)
[2021-07-31] MEDS: LEVOFLOXACIN INJ 500 MG/100 ML PREMIX IV SCH (18:14)
[2021-07-31] MEDS: ENOXAPARIN 30 MG/0.3 ML SYRINGE SUBCUT SCH (18:15)
[2021-07-31] MEDS: MONTELUKAST 10 MG TABLET PO SCH (21:16)
[2021-08-01] MEDS: ALBUTEROL/IPRATROPIUM 3 ML NEB RESP TX SCH ×2 (01:08→07:36)
[2021-08-01] MEDS: LEVOTHYROXINE 50 MCG TABLET PO SCH (06:12)
[2021-08-01] MEDS: methylPREDNISolone SOD SUC 40 MG/1 ML VIAL IV SCH (06:12)
[2021-08-01] MEDS: INSULIN LISPRO 100 UNIT/ML SUBCUT SCH (08:41)
[2021-08-01] MEDS: METOPROLOL TARTRATE 25 MG TABLET PO SCH (08:41)
[2021-08-01] MEDS: amLODIPine 5 MG TABLET PO SCH (08:41)
[2021-08-01] MEDS: carvediloL 3.125 MG TABLET PO SCH (08:42)
[2021-08-01] MEDS: oxyCODONE/ACETAMINOPHEN 5-325 MG TABLET PO PRN (08:42)
[2021-08-01] MEDS: GABAPENTIN 300 MG CAPSULE PO SCH (08:42)
[2021-08-01 12:12] VITALS: BP 131/84
== END 2021-08-01 11:15 | disposition home health service (06) | DRG 140 ==
LOC: EDBD → EDUNIT# → N.ED 14:19 → N.EDINP 17:08 → N.3E 20:51 → N.ICU 21:37 → N.2W 07-30 13:38
PROVIDERS: ADMIT Internal Medicine; ATTEND Internal Medicine

== ENCOUNTER 2021-10-05 00:28 | Observation (INO) ==
[2021-10-05] MEDS ORDERED: NITROGLYCERIN 2% OINT 1 INCH/GM PACK TOP STA (00:49)
[2021-10-05] MEDS ORDERED: MORPHINE 2 MG/1 ML SYRINGE IV STA (00:49)
[2021-10-05] MEDS ORDERED: ASPIRIN 325 MG TABLET PO STA (00:49)
[2021-10-05 01:33] LABS: Basophils % 0.7 % (0.0-0.8); Eosinophils # 0.2 10*3/uL (0.0-0.87); Eosinophils % 3.9 % (0.00-10.9); Hematocrit 37.6 VOL% (35.7-47.0); Immature Granulocytes % 0.2 %; Immature Granulocytes Absolute 0.01 #; Lymphocytes # 1.5 10*3/uL (1.4-4.0); Lymphocytes % 24.1 % (21.3-54.2); Mean Corpuscular HGB Conc 29.3 GM/DL (32-36); Mean Corpuscular Volume 89.5 FL (87-102); Mean Platelet Volume 10.6 FL (9.6-12.0); Monocytes % 9.9 % (1.7-12.7); Neutrophils % 61.2 % (38.7-73.9); Platelet Count 149 T/CUMM (130-400); Red Cell Distribution Width 13.1 % (9.3-17.3); White Blood Count 6.1 T/CUMM (4-12)
[2021-10-05 01:49] LABS: Albumin 3.4 G/DL (3.4-5.0); Bilirubin,Total 0.4 MG/DL (0.20-1.00); Calcium 9.6 MG/DL (8.5-10.1); Osmolality,Calculated 285.1 MOS/KG (273-304); Potassium 2.9 MMOL/L (3.5-5.1); Total Protein 7.2 G/DL (6.4-8.2)
[2021-10-05] MEDS ORDERED: POTASSIUM CHLORIDE 20 MEQ TABLET PO STA (01:54)
[2021-10-05 02:39] LABS: PT Patient Result 11.5 SECS (10.5-12.0)
[2021-10-05] MEDS ORDERED: ALBUTEROL/IPRATROPIUM 3 ML NEB RESP TX PRN (03:16)
[2021-10-05] MEDS ORDERED: MORPHINE 2 MG/1 ML SYRINGE IV PRN (03:19)
[2021-10-05] MEDS ORDERED: ENOXAPARIN 40 MG/0.4 ML SYRINGE SUBCUT SCH (04:00)
[2021-10-05] MEDS: POTASSIUM CHLORIDE RIDER 10 MEQ/100 ML PREMIX IV SCH ×2 (07:32→08:34)
[2021-10-05 07:39] LABS: Basophils # 0.1 10*3/uL (0.0-0.2); Basophils % 0.8 % (0.0-0.8); Eosinophils # 0.3 10*3/uL (0.0-0.87); Eosinophils % 4.4 % (0.00-10.9); Hematocrit 36.5 VOL% (35.7-47.0); Immature Granulocytes % 0.2 %; Immature Granulocytes Absolute 0.01 #; Lymphocytes # 1.4 10*3/uL (1.4-4.0); Lymphocytes % 22.7 % (21.3-54.2); Mean Corpuscular HGB Conc 29.3 GM/DL (32-36); Mean Corpuscular Volume 89.2 FL (87-102); Mean Platelet Volume 9.5 FL (9.6-12.0); Monocytes % 9.4 % (1.7-12.7); Neutrophils % 62.5 % (38.7-73.9); Platelet Count 137 T/CUMM (130-400); Red Blood Count 4.09 MC/CUMM (3.8-5.5); Red Cell Distribution Width 13.2 % (9.3-17.3); White Blood Count 6.1 T/CUMM (4-12)
[2021-10-05 07:40] LABS: Hemoglobin 10.7 GM/DL (12.0-16.0)
[2021-10-05 07:45] LABS: Osmolality,Calculated 287.7 MOS/KG (273-304); Potassium 4.1 MMOL/L (3.5-5.1)
[2021-10-05 08:01] LABS: Anisocytosis 1+; Macrocytosis Slight; Platelet Estimate Adequate
[2021-10-05] MEDS ORDERED: PANTOPRAZOLE 40 MG TABLET PO SCH (09:00)
[2021-10-05] MEDS ORDERED: NICOTINE 14 MG/24 HR PATCH TRANSDERM SCH (09:00)
[2021-10-05] MEDS ORDERED: ASPIRIN EC 81 MG TABLET PO SCH (09:00)
[2021-10-05 10:58] LABS: Calcium 8.9 MG/DL (8.5-10.1); Osmolality,Calculated 288.7 MOS/KG (273-304); Potassium 4.4 MMOL/L (3.5-5.1)
[2021-10-05 11:03] VITALS: BP 173/105
== END 2021-10-05 11:26 | disposition home or self-care (01) ==
LOC: EDBD → EDUNIT# → N.EDINP 00:28 → N.ED 00:28 → N.EDINP 11:26
PROVIDERS: ADMIT Internal Medicine Geriatric Medicine; ATTEND Internal Medicine Geriatric Medicine

== ENCOUNTER 2022-08-19 11:17 | Observation (INO) ==
[2022-08-19] MEDS ORDERED: methylPREDNISolone SOD SUC 125 MG/2 ML VIAL IV STA (11:58)
[2022-08-19] MEDS ORDERED: ALBUTEROL/IPRATROPIUM 3 ML NEB RESP TX STA (11:58)
[2022-08-19 12:36] LABS: Albumin 3.6 G/DL (3.4-5.0); Bilirubin,Total 0.4 MG/DL (0.20-1.00); Calcium 8.8 MG/DL (8.5-10.1); Osmolality,Calculated 284.1 MOS/KG (273-304); Potassium 4.7 MMOL/L (3.5-5.1); Total Protein 6.7 G/DL (6.4-8.2)
[2022-08-19 12:49] LABS: Basophils # 0.1 10*3/uL (0.0-0.2); Basophils % 0.9 % (0.0-0.8); Eosinophils # 0.1 10*3/uL (0.0-0.87); Eosinophils % 1.1 % (0.00-10.9); Hemoglobin 12.4 GM/DL (12.0-16.0); Immature Granulocytes % 0.4 %; Immature Granulocytes Absolute 0.02 #; Lymphocytes # 0.9 10*3/uL (1.4-4.0); Lymphocytes % 17.2 % (21.3-54.2); Mean Corpuscular HGB Conc 30.2 GM/DL (32-36); Mean Platelet Volume 10.9 FL (9.6-12.0); Monocytes # 0.4 10*3/uL (0.11-0.8); Neutrophils % 72.4 % (38.7-73.9); Platelet Count 123 T/CUMM (130-400); Red Blood Count 4.36 MC/CUMM (3.8-5.5); Red Cell Distribution Width 16.7 % (9.3-17.3); White Blood Count 5.4 T/CUMM (4-12)
[2022-08-19] MEDS ORDERED: GLUCAGON 1 MG VIAL IM PRN (15:25)
[2022-08-19] MEDS ORDERED: hydrALAZINE 20 MG/1 ML VIAL IV PRN (15:25)
[2022-08-19] MEDS ORDERED: DEXTROSE 10% 250 ML BAG IV PRN (16:01)
[2022-08-19] MEDS: carvediloL 3.125 MG TABLET PO SCH (17:47)
[2022-08-19] MEDS: oxyCODONE/ACETAMINOPHEN 5-325 MG TABLET PO PRN (17:47)
[2022-08-19] MEDS: ALBUTEROL/IPRATROPIUM 3 ML NEB RESP TX SCH (19:25)
[2022-08-19] MEDS: GABAPENTIN 300 MG CAPSULE PO SCH (20:49)
[2022-08-19] MEDS: ROSUVASTATIN 20 MG TABLET PO SCH (20:49)
[2022-08-19] MEDS: APIXABAN 5 MG TABLET PO SCH (20:49)
[2022-08-19] MEDS: MONTELUKAST 10 MG TABLET PO SCH (20:49)
[2022-08-19 22:19] LABS: Barbiturates Screen,Urine Negative (Negative); Benzodiazepines Screen,Urine Negative (Negative); Cannabinoid Screen,Urine Positive (Negative); Opiate Screen,Urine Negative (Negative); Phencyclidine Screen,Urine Negative (Negative)
[2022-08-20] MEDS: ALBUTEROL/IPRATROPIUM 3 ML NEB RESP TX SCH ×4 (00:35→19:00)
[2022-08-20] MEDS: oxyCODONE/ACETAMINOPHEN 5-325 MG TABLET PO PRN ×3 (01:19→18:21)
[2022-08-20 05:06] LABS: Hematocrit 39.4 VOL% (35.7-47.0); Hemoglobin 11.9 GM/DL (12.0-16.0); Immature Granulocytes % 0.3 %; Immature Granulocytes Absolute 0.01 #; Lymphocytes # 0.6 10*3/uL (1.4-4.0); Lymphocytes % 20.7 % (21.3-54.2); Mean Corpuscular HGB Conc 30.2 GM/DL (32-36); Mean Corpuscular Volume 92.9 FL (87-102); Mean Platelet Volume 9.9 FL (9.6-12.0); Monocytes # 0.1 10*3/uL (0.11-0.8); Platelet Count 132 T/CUMM (130-400); Red Blood Count 4.24 MC/CUMM (3.8-5.5); Red Cell Distribution Width 16.2 % (9.3-17.3); White Blood Count 3.1 T/CUMM (4-12)
[2022-08-20 05:27] LABS: Calcium 9.1 MG/DL (8.5-10.1); Osmolality,Calculated 282.5 MOS/KG (273-304); Potassium 4.9 MMOL/L (3.5-5.1); Risk Ratio 1.85; Thyroid Stimulating Hormone 1.73 uIU/ml (0.358-3.74)
[2022-08-20 05:31] LABS: Platelet Estimate Adequate
[2022-08-20] MEDS: LEVOTHYROXINE 50 MCG TABLET PO SCH (07:08)
[2022-08-20] MEDS: GABAPENTIN 300 MG CAPSULE PO SCH ×3 (08:46→21:02)
[2022-08-20] MEDS: APIXABAN 5 MG TABLET PO SCH ×2 (08:46→21:02)
[2022-08-20] MEDS: carvediloL 3.125 MG TABLET PO SCH ×2 (08:46→17:45)
[2022-08-20] MEDS: amLODIPine 5 MG TABLET PO SCH (08:47)
[2022-08-20] MEDS: ROSUVASTATIN 20 MG TABLET PO SCH (21:02)
[2022-08-20] MEDS: MONTELUKAST 10 MG TABLET PO SCH (21:03)
[2022-08-21] MEDS: ALBUTEROL/IPRATROPIUM 3 ML NEB RESP TX SCH ×2 (00:25→10:27)
[2022-08-21] MEDS: oxyCODONE/ACETAMINOPHEN 5-325 MG TABLET PO PRN ×2 (03:27→11:33)
[2022-08-21] MEDS: LEVOTHYROXINE 50 MCG TABLET PO SCH (05:34)
[2022-08-21 07:47] VITALS: BP 106/65
[2022-08-21] MEDS ORDERED: ASPIRIN CHEW 81 MG TABLET PO SCH (09:00)
[2022-08-21] MEDS: amLODIPine 5 MG TABLET PO SCH (09:15)
[2022-08-21] MEDS: carvediloL 3.125 MG TABLET PO SCH (09:15)
[2022-08-21] MEDS: APIXABAN 5 MG TABLET PO SCH (09:15)
[2022-08-21] MEDS: GABAPENTIN 300 MG CAPSULE PO SCH (09:15)
[2022-08-21 09:31] LABS: Basophils % 0.7 % (0.0-0.8); Eosinophils # 0.1 10*3/uL (0.0-0.87); Eosinophils % 1.9 % (0.00-10.9); Hematocrit 39.3 VOL% (35.7-47.0); Hemoglobin 12.1 GM/DL (12.0-16.0); Immature Granulocytes % 0.5 %; Immature Granulocytes Absolute 0.03 #; Lymphocytes # 1.4 10*3/uL (1.4-4.0); Lymphocytes % 22.8 % (21.3-54.2); Mean Corpuscular HGB Conc 30.8 GM/DL (32-36); Mean Corpuscular Volume 93.1 FL (87-102); Mean Platelet Volume 9.9 FL (9.6-12.0); Monocytes # 0.5 10*3/uL (0.11-0.8); Monocytes % 8.8 % (1.7-12.7); Neutrophils % 65.3 % (38.7-73.9); Platelet Count 141 T/CUMM (130-400); Red Blood Count 4.22 MC/CUMM (3.8-5.5); Red Cell Distribution Width 16.6 % (9.3-17.3); White Blood Count 5.9 T/CUMM (4-12)
[2022-08-21 09:50] LABS: Calcium 8.8 MG/DL (8.5-10.1); Osmolality,Calculated 278.5 MOS/KG (273-304); Potassium 4.6 MMOL/L (3.5-5.1)
== END 2022-08-21 12:59 | disposition home or self-care (01) ==
LOC: N.EDINP 11:17 → N.ED 11:17 → SUATTDRO 15:25 → N.2W 16:50 → N.5E 08-20 06:00
PROVIDERS: ADMIT Internal Medicine; ATTEND Hospitalist